=== PATIENT | male | born 1940 | race Two or more races ===

== ENCOUNTER 2019-10-18 20:34 | Inpatient (IN) | payer MEDICARE, MEDICAID ==
[~2019-10-18] VITALS: Ht 177.8 cm; Wt 106.3 kg
[2019-10-18] MEDS ORDERED: FUROSEMIDE 40 MG/4 ML VIAL IV ONE (21:15)
[2019-10-18 21:33] LABS: Basophils # (auto) 0.1 10 ^3/uL (0-0.2); Basophils % (auto) 0.8 % (0.0-2.0); Eosinophils # (auto) 0.5 10 ^3/uL (0-0.8); Eosinophils % (auto) 4.7 % (0.0-7.0); Hematocrit 34.5 % (41.0-53.0); Hemoglobin 11.4 g/dL (13.5-17.5); Lymphocytes # (auto) 1.8 10 ^3/uL (0.4-5.4); Lymphocytes % (auto) 18.4 % (10.0-50.0); Mean Corpuscular Hemoglobin 31.3 pg (28.0-32.0); Mean Corpuscular Hgb Conc. 33.1 g/dL (32.0-36.0); Mean Corpuscular Volume 94.6 fL (80.0-100.0); Monocytes % (auto) 10.3 % (0.0-12.0); Neutrophils # (auto) 6.3 10 ^3/uL (1.6-8.6); Neutrophils % (auto) 65.8 % (37.0-80.0); Platelet Count (auto) 169 10^3/uL (140-450); Red Blood Cells 3.64 10^6/uL (4.5-5.90); Red Cell Distribution Width 15.5 % (11.8-14.3); White Blood Cell 9.6 10^3/uL (4.4-10.8)
[2019-10-18 21:53] LABS: Albumin 3.3 g/dL (3.4-5.0); Anion Gap 5 (5-15); Blood Urea Nitrogen 52 mg/dL (7-18); Calcium 8.6 mg/dL (8.5-10.1); Carbon Dioxide 23 mmol/L (21-32); Chloride 106 mmol/L (98-107); Magnesium 2.4 mg/dL (1.6-2.6); Potassium 5.2 mmol/L (3.5-5.1); Sodium 134 mmol/L (136-145)
[2019-10-18 21:56] LABS: Alanine Aminotransferase 20 U/L (16-61); Aspartate Aminotransferase 11 U/L (15-37); BUN/Creatinine Ratio 23.2; GFR African American 37 mL/min; GFR Non-African American 30 mL/min; Glucose 72 mg/dL (74-106)
[2019-10-18 22:00] LABS: INR 0.99 (0.9-1.15); Partial Thromboplastin Time 28.6 sec (23.64-32.05)
[2019-10-18 22:01] LABS: Alkaline Phosphatase 81 U/L (45-117); Bilirubin, Total 0.3 mg/dL (0.2-1.0); Total Protein 7.6 g/dL (6.4-8.2)
[2019-10-18 23:21] LABS: Urine Bacteria FEW /hpf (None Seen); Urine Blood Negative /uL (Negative); Urine Hyaline Cast FEW /lpf (0 - 2); Urine Specific Gravity 1.009 (1.001-1.035); Urine WBC 7 /hpf (0 - 3)
[2019-10-18] MEDS ORDERED: SODIUM CHLORIDE 0.9% 1,000 ML IV SCH (23:43)
[2019-10-18] MEDS ORDERED: ACETAMINOPHEN 325 MG TAB PO PRN (23:45)
[2019-10-18] MEDS ORDERED: HYDROcodone-ACET 5/325MG TAB PO PRN (23:45)
[2019-10-18] MEDS ORDERED: MORPHINE SULFATE 4 MG/ML SYR/VIAL IV PRN (23:45)
[2019-10-18] MEDS ORDERED: ONDANSETRON HCL 4 MG/2 ML VIAL IV PRN (23:45)
[2019-10-18] MEDS ORDERED: MORPHINE SULF INJ 2 MG/ML SYRINGE 1ML IV PRN (23:45)
[2019-10-18] MEDS ORDERED: DOCUSATE SOD 100 MG CAP PO PRN (23:45)
[2019-10-18] MEDS ORDERED: DEXTROSE (50%) 50ML SYRG IV PRN (23:45)
[2019-10-18] MEDS ORDERED: NITROGLYCERIN 0.4 MG SL TAB SL PRN (23:45)
[2019-10-19 01:42] VITALS: BP 121/50
--- NOTE | 2019-10-19 01:45 | NUR ---
Telemetry admit from ER TATYANA AUGUSTINE admitted to Telemetry unit after SBAR received. Patient oriented to Pete santillan RN, unit, room, bed, and unit policies regarding patient care and visiting hours. Patient now on continuous telemetry monitoring, tele box #51 and telemetry reading on arrival to unit is Fauzia Moser. Patient placed on bedside oxygen, weighed by bedscale and encouraged to call if they need something. All questions and concerns addressed, patient verbalized understanding.
[2019-10-19 03:46] LABS: Basophils # (auto) 0.1 10 ^3/uL (0-0.2); Basophils % (auto) 0.9 % (0.0-2.0); Eosinophils # (auto) 0.4 10 ^3/uL (0-0.8); Eosinophils % (auto) 4.7 % (0.0-7.0); Hematocrit 33.1 % (41.0-53.0); Hemoglobin 11.2 g/dL (13.5-17.5); Lymphocytes # (auto) 1.9 10 ^3/uL (0.4-5.4); Lymphocytes % (auto) 21.1 % (10.0-50.0); Mean Corpuscular Hemoglobin 31.4 pg (28.0-32.0); Mean Corpuscular Hgb Conc. 33.9 g/dL (32.0-36.0); Mean Corpuscular Volume 92.6 fL (80.0-100.0); Monocytes # (auto) 0.9 10 ^3/uL (0-1.3); Monocytes % (auto) 9.4 % (0.0-12.0); Neutrophils # (auto) 5.9 10 ^3/uL (1.6-8.6); Neutrophils % (auto) 63.9 % (37.0-80.0); Platelet Count (auto) 165 10^3/uL (140-450); Red Blood Cells 3.57 10^6/uL (4.5-5.90); Red Cell Distribution Width 15.5 % (11.8-14.3); White Blood Cell 9.2 10^3/uL (4.4-10.8)
[2019-10-19] MEDS: InsuLIN REG 1unit/0.01ml Soln (100units/ml) SC SCH ×6 (04:00→20:20)
[2019-10-19] MEDS: ACCU-CHEK COMFORT CURVE STRIP VI SCH ×6 (04:00→20:20)
[2019-10-19 04:10] LABS: Calcium 8.1 mg/dL (8.5-10.1)
[2019-10-19 04:15] LABS: BUN/Creatinine Ratio 25.3
[2019-10-19] MEDS ORDERED: PYRI100T51 PO (04:45)
[2019-10-19] MEDS ORDERED: TAMS0.4C36 PO (04:45)
[2019-10-19] MEDS ORDERED: CARV12.544 PO (04:45)
[2019-10-19] MEDS ORDERED: GABA300C10 PO (04:45)
[2019-10-19] MEDS ORDERED: HYDR12.56 PO (04:45)
[2019-10-19] MEDS ORDERED: LISI30TA4 PO (04:46)
[2019-10-19] MEDS ORDERED: RANI150C11 PO (04:46)
[2019-10-19] MEDS ORDERED: AMLO5TAB15 PO (04:46)
[2019-10-19] MEDS ORDERED: PRAV20TA3 PO (04:46)
[2019-10-19 05:17] VITALS: BP 122/60
--- NOTE | 2019-10-19 07:15 | NUR ---
Opening Shift Notes Report received and assumed care of patient, awake and alert. speak [place] Islander understand little Greenlandic, No S/S of distress/SOB or pain. Instructed on POC and nursing routines,call light within reach patient reminded instructed to call for assistance verbalized understanding.will continue to monitor for changes Q1hr and PRN.
[2019-10-19 09:00] VITALS: BP 124/63
[2019-10-19] MEDS ORDERED: FUROSEMIDE 40 MG/4 ML VIAL IV SCH (10:00)
--- NOTE | 2019-10-19 10:15 | NUR ---
MD VISIT DR. PALACIOS HERE TO SEE AND EXAMINED PATIENT,RECEIVED ORDER.
[2019-10-19] MEDS ORDERED: AZITHROMYCIN 250 MG TAB PO ONE (11:15)
[2019-10-19] MEDS: TAMSULOSIN HYDROCHLORIDE 0.4 MG CAP PO SCH (11:19)
[2019-10-19] MEDS: cefTRIAXone 1GM/50ML D5W 50 ML IV SCH (11:19)
[2019-10-19] MEDS: FUROSEMIDE 100 MG/10ML VIAL IV SCH ×2 (11:20→21:27)
[2019-10-19 13:00] VITALS: BP 130/67
--- NOTE | 2019-10-19 13:35 | NUR ---
ISAIAS,PATIENT SON CALLED UPDATED WITH PATIENT STATUS AFTER PASSWORD OBTAINED
[2019-10-19] MEDS ORDERED: OPTISON 3ml Vial for INJ IV ONE (15:34)
--- NOTE | 2019-10-19 15:45 | NUR ---
ECHOCARDIOGRAM DONE AT BEDSIDE BY AUDRA RAT FARMERJFEFYSON 1.5 ML GIVEN PER PROTOCOL,NO REACTION NOTED.
[2019-10-19 16:25] VITALS: BP 139/70
--- NOTE | 2019-10-19 19:19 | NUR ---
Status unchanged no distress no discomfort,report given to incoming NOC RN.
--- NOTE | 2019-10-19 20:00 | NUR ---
Opening Shift Note Assumed care of patient, awake and alert, oriented x 4, clear speech, follows direction, glass setter at bedside. On oxygen at 3L via NC with even and unlabored respirations. No S/S of distress/SOB. patient denies pain. Bed in lowest locked position with side rails up x 2 and call light within reach. Instructed on POC and to call for assist PRN, will continue to monitor for changes Q1hr and PRN.
[2019-10-19 21:20] VITALS: BP 142/63
[2019-10-20] MEDS: ACCU-CHEK COMFORT CURVE STRIP VI SCH ×6 (00:22→20:38)
[2019-10-20] MEDS: InsuLIN REG 1unit/0.01ml Soln (100units/ml) SC SCH ×6 (03:48→20:38)
[2019-10-20 04:56] VITALS: BP 126/43
[2019-10-20 05:51] LABS: Basophils # (auto) 0.1 10 ^3/uL (0-0.2); Basophils % (auto) 0.7 % (0.0-2.0); Eosinophils # (auto) 0.4 10 ^3/uL (0-0.8); Eosinophils % (auto) 4.6 % (0.0-7.0); Hematocrit 34.2 % (41.0-53.0); Hemoglobin 11.5 g/dL (13.5-17.5); Lymphocytes # (auto) 2.1 10 ^3/uL (0.4-5.4); Lymphocytes % (auto) 24.7 % (10.0-50.0); Mean Corpuscular Hemoglobin 31.2 pg (28.0-32.0); Mean Corpuscular Hgb Conc. 33.8 g/dL (32.0-36.0); Mean Corpuscular Volume 92.2 fL (80.0-100.0); Monocytes # (auto) 1.1 10 ^3/uL (0-1.3); Monocytes % (auto) 13.5 % (0.0-12.0); Neutrophils # (auto) 4.7 10 ^3/uL (1.6-8.6); Neutrophils % (auto) 56.5 % (37.0-80.0); Platelet Count (auto) 173 10^3/uL (140-450); Red Blood Cells 3.71 10^6/uL (4.5-5.90); Red Cell Distribution Width 15.6 % (11.8-14.3); White Blood Cell 8.3 10^3/uL (4.4-10.8)
[2019-10-20 06:12] LABS: BUN/Creatinine Ratio 28.6; Calcium 8.8 mg/dL (8.5-10.1)
[2019-10-20 06:16] LABS: Potassium 5.6 mmol/L (3.5-5.1)
--- NOTE | 2019-10-20 06:19 | NUR ---
Paged Hospitalist RE: critical K 5.6 awaiting call back, will continue care.
--- NOTE | 2019-10-20 06:25 | NUR ---
Received call back from MD Marcellus updated on patient status, new order received, read back and verified, will carry out orders and continue care.
[2019-10-20] MEDS ORDERED: SODIUM ZIRCONIUM CYCL 10 GM PAK PO ONE (06:30)
--- NOTE | 2019-10-20 07:10 | NUR ---
Closing Note patient resting in bed with oxygen on, even and unlabored respirations, no s/s of distress. Bed in lowest locked position with side rails up x 2 and call light within reach. Bed alarm on. Endorsed care to day shift RN.
--- NOTE | 2019-10-20 07:50 | NUR ---
Opening Shift Note Assumed care of patient, who is alert and oriented x4. No S/S of distress/SOB or pain. IV to left AC is patent and intact. Bed is low, locked with 2x side rails up. Call light is within reach. Instructed on POC and to call for assist PRN, will continue to monitor for changes Q1hr and PRN.
[2019-10-20 08:00] VITALS: BP 138/60
[2019-10-20 09:00] VITALS: BP_SYST 138; BP_SYST 140; BP_DIAS 60; BP_DIAS 87
[2019-10-20] MEDS: AZITHROMYCIN 250 MG TAB PO SCH (10:12)
[2019-10-20] MEDS: cefTRIAXone 1GM/50ML D5W 50 ML IV SCH (10:12)
[2019-10-20] MEDS: TAMSULOSIN HYDROCHLORIDE 0.4 MG CAP PO SCH (10:12)
[2019-10-20] MEDS: FUROSEMIDE 100 MG/10ML VIAL IV SCH ×2 (10:13→20:38)
--- NOTE | 2019-10-20 11:12 | NUR ---
Cardio Follow Up Appointment This nurse contacted Dr. Elias's office as per MD's communication order. This nurse spoke with Joan and scheduled the patient a virtual follow up appointment for 10/26/2019 at 12:30pm. Will provide patient with follow up information.
[2019-10-20] MEDS ORDERED: SODIUM BICARBONATE 8.4% INJ 50ML SYRINGE IV ONE (11:15)
[2019-10-20] MEDS ORDERED: InsuLIN REG 1unit/0.01ml Soln (100units/ml) IV ONE (11:15)
[2019-10-20] MEDS ORDERED: DEXTROSE (50%) 50ML SYRG IV ONE (11:15)
[2019-10-20] MEDS ORDERED: ALBUTEROL SULF 2.5 MG/0.5ML(0.5%) NEB SOLN NEB ONE (11:15)
[2019-10-20 13:00] VITALS: BP 154/76
[2019-10-20] MEDS ORDERED: SODIUM ZIRCONIUM CYCL 10 GM PAK PO SCH (14:00)
--- NOTE | 2019-10-20 16:19 | NUR ---
O2 saturations Patient's O2 saturations on room are were 86%-88%. Placed patient back on 1L O2 and his O2 saturations are now 94%. Will relay message to MD Recinos.
--- NOTE | 2019-10-20 16:23 | NUR ---
Received call back Per MD Recinos this nurse is to increase O2 to two liters. Will carry out orders and continue to monitor.
[2019-10-20 16:24] VITALS: BP 150/80
--- NOTE | 2019-10-20 16:40 | NUR ---
Respiratory note: ABG NOT DONE. SPOKE WITH RN, RN UNSURE OF DC TOMORROW. RN IS CANCELLING ABG ORDERED FOR TODAY AND ORDERING ABG FOR AM TOMORROW INSTEAD.
--- NOTE | 2019-10-20 17:23 | NUR ---
Family update Mitch (son) called for update. Password verified and all questions answered.
--- NOTE | 2019-10-20 20:05 | NUR ---
Opening Shift Note Assumed care of patient, awake and alert, oriented x 4, clear speech, follows direction, president and chief commercial officer at bedside. On oxygen at 2L via NC with even and unlabored respirations. No S/S of distress/SOB. patient denies pain. Bed in lowest locked position with side rails up x 2 and call light within reach. Instructed on POC and to call for assist PRN, will continue to monitor for changes Q1hr and PRN.
--- NOTE | 2019-10-20 20:30 | NUR ---
IV insertion IV access obtained, via clean sterile technique by inserting 22 gauge catheter at right forearm after 1 attempt(s). IV secured properly. No trauma to site. Patient tolerated well. NOTE: PIV to left AC was leaking. IV DC'd with clean sterile technique, catheter fully intact. Pressure dressing applied to site. Patient tolerated well. NOTE:
[2019-10-20 22:00] VITALS: BP 153/81
[2019-10-21] MEDS: ACCU-CHEK COMFORT CURVE STRIP VI SCH ×5 (00:06→16:00)
[2019-10-21] MEDS: InsuLIN REG 1unit/0.01ml Soln (100units/ml) SC SCH ×5 (04:00→16:00)
[2019-10-21 05:00] VITALS: BP 138/61
[2019-10-21 06:16] LABS: Calcium 8.9 mg/dL (8.5-10.1); Potassium 4.4 mmol/L (3.5-5.1)
--- NOTE | 2019-10-21 06:50 | NUR ---
Closing Note patient resting in bed with oxygen on, even and unlabored respirations, no s/s of distress. Bed in lowest locked position with side rails up x 2 and call light within reach. Bed alarm on.
--- NOTE | 2019-10-21 07:33 | NUR ---
Opening Shift Note Assumed care of patient, awake and alert. No S/S of distress/SOB or pain. for safety patients bed is locked, in the lowest position with 2 side rails up and the call light with in reach. Instructed on POC and to call for assist PRN, will continue to monitor for changes in condition.
[2019-10-21 08:26] VITALS: BP 142/71
[2019-10-21] MEDS: FUROSEMIDE 100 MG/10ML VIAL IV SCH (09:34)
[2019-10-21] MEDS: TAMSULOSIN HYDROCHLORIDE 0.4 MG CAP PO SCH (09:34)
[2019-10-21] MEDS: cefTRIAXone 1GM/50ML D5W 50 ML IV SCH (09:34)
[2019-10-21] MEDS: AZITHROMYCIN 250 MG TAB PO SCH (09:34)
[2019-10-21 12:30] VITALS: BP_SYST 138; BP_SYST 150; BP_DIAS 59; BP_DIAS 67
[2019-10-21 17:12] VITALS: BP 129/54
--- NOTE | 2019-10-21 18:28 | NUR ---
Discharge instructions given as ordered. Encourage to follow up with Primary care physician as instructed and follow up with cardiology appointment made for Dr. Elias and nephrology appt for Dr. Recinos. All questions and concerns addressed. Patient verbalized understanding. Medication reconciliation form completed and copy given to patient. Home medications held in Pharmacy returned to patient. IV removed with catheter intact, pressure dressing applied. Telemetry unit 51 returned to ICU. Patient taken to vehicle via wheelchair with all personal belongings, accompanied by staff and daughter Idania. No distress noted at time of departure.
== END 2019-10-21 18:20 | disposition home or self-care (01) | DRG 291 ==
LOC: EDBD 20:34 → ER 20:38 → TELE 20:39 → TELE-WESTW 10-19 01:42
PROVIDERS: ADMIT Hospitalist; ATTEND Internal Medicine Nephrology
DX: I13.0 Hypertensive heart and chronic kidney disease with heart failure and stage 1 through stage 4 chronic kidney disease, or unspecified chronic kidney disease (principal); I50.33 Acute on chronic diastolic (congestive) heart failure; J15.6 Pneumonia due to other Gram-negative bacteria; N17.0 Acute kidney failure with tubular necrosis; J96.01 Acute respiratory failure with hypoxia; E78.00 Pure hypercholesterolemia, unspecified; I44.1 Atrioventricular block, second degree; E11.22 Type 2 diabetes mellitus with diabetic chronic kidney disease; N18.3 Chronic kidney disease, stage 3 (moderate); E66.9 Obesity, unspecified; E78.5 Hyperlipidemia, unspecified; E87.5 Hyperkalemia; Z86.73 Personal history of transient ischemic attack (TIA), and cerebral infarction without residual deficits; Z79.899 Other long term (current) drug therapy; Z83.3 Family history of diabetes mellitus; Z83.511 Family history of glaucoma; Z68.34 Body mass index [BMI] 34.0-34.9, adult
CPT/HCPCS: 36415; 36600; 71045; 71046; 80048; 80053; 80061; 81001; 82805; 82962; 83036; 83735; 83880; 84132; 84443; 84484; 85025; 85379; 85610; 85730; 93005; 93306; 93970; 94640; G0378; J0696; J1815; Q9956

== ENCOUNTER 2019-11-09 15:31 | Inpatient (IN) | payer MEDICARE, MEDICAID ==
[~2019-11-09] VITALS: Ht 175.3 cm; Wt 101.8 kg
[~2019-11-09 15:31] MED LIST: AMLO5TAB15 PO; CARV12.544 PO; GABA300C10 PO; HYDR12.56 PO; PRAV20TA3 PO; PYRI100T51 PO; RANI150C11 PO; TAMS0.4C36 PO
[2019-11-09] MEDS ORDERED: FUROSEMIDE 40 MG/4 ML VIAL IV ONE (15:45)
[2019-11-09 16:17] LABS: Basophils # (auto) 0.1 10 ^3/uL (0-0.2); Basophils % (auto) 0.5 % (0.0-2.0); Eosinophils # (auto) 0.3 10 ^3/uL (0-0.8); Eosinophils % (auto) 3.4 % (0.0-7.0); Hematocrit 32.3 % (41.0-53.0); Hemoglobin 10.6 g/dL (13.5-17.5); Lymphocytes # (auto) 1.3 10 ^3/uL (0.4-5.4); Lymphocytes % (auto) 13.9 % (10.0-50.0); Mean Corpuscular Hemoglobin 30.6 pg (28.0-32.0); Mean Corpuscular Hgb Conc. 32.9 g/dL (32.0-36.0); Mean Corpuscular Volume 93.2 fL (80.0-100.0); Monocytes % (auto) 10.9 % (0.0-12.0); Neutrophils # (auto) 6.7 10 ^3/uL (1.6-8.6); Neutrophils % (auto) 71.3 % (37.0-80.0); Nucleated Red Blood Cells % 0.1 %; Platelet Count (auto) 188 10^3/uL (140-450); Red Blood Cells 3.47 10^6/uL (4.5-5.90); Red Cell Distribution Width 14.6 % (11.8-14.3); White Blood Cell 9.3 10^3/uL (4.4-10.8)
[2019-11-09 16:30] LABS: Alanine Aminotransferase 30 U/L (16-61); Albumin 2.8 g/dL (3.4-5.0); Anion Gap 5 (5-15); Aspartate Aminotransferase 24 U/L (15-37); Blood Urea Nitrogen 54 mg/dL (7-18); Calcium 8.8 mg/dL (8.5-10.1); Carbon Dioxide 30 mmol/L (21-32); Chloride 104 mmol/L (98-107); GFR African American 42 mL/min; GFR Non-African American 34 mL/min; Glucose 145 mg/dL (74-106); Potassium 4.3 mmol/L (3.5-5.1); Sodium 139 mmol/L (136-145)
[2019-11-09] MEDS ORDERED: FUROSEMIDE 20 MG/2 ML VIAL IV ONE (16:30)
[2019-11-09 16:34] LABS: Alkaline Phosphatase 88 U/L (45-117); Bilirubin, Total 0.3 mg/dL (0.2-1.0); Total Protein 7.7 g/dL (6.4-8.2)
[2019-11-09 16:35] LABS: INR 1.06 (0.9-1.15); Partial Thromboplastin Time 28.3 sec (23.64-32.05)
[2019-11-09] MEDS ORDERED: cefTRIAXone 1GM/50ML D5W 50 ML IV ONE (16:45)
[2019-11-09] MEDS ORDERED: AZITHROMYCIN 500MG/ 250ML 250 ML IV ONE (16:45)
[2019-11-09] MEDS ORDERED: MORPHINE SULF INJ 2 MG/ML SYRINGE 1ML IV PRN ×2 (18:15)
[2019-11-09] MEDS ORDERED: DEXTROSE (50%) 50ML SYRG IV PRN (18:15)
[2019-11-09] MEDS ORDERED: HYDROcodone-ACET 5/325MG TAB PO PRN (18:15)
[2019-11-09] MEDS ORDERED: ACETAMINOPHEN 500 MG TAB PO ONE (18:15)
[2019-11-09] MEDS ORDERED: NITROGLYCERIN 0.4 MG SL TAB SL PRN (18:15)
[2019-11-09] MEDS: ACETAMINOPHEN 500 MG TAB PO PRN (18:26)
[2019-11-09 18:35] LABS: Magnesium 2.4 mg/dL (1.6-2.6)
[2019-11-09 18:45] LABS: CRP High Sensitivity 5.13 mg/dL (< 0.3)
[2019-11-09] MEDS: ASCORBIC ACID 1,000 MG TAB PO SCH (18:54)
[2019-11-09] MEDS: ZINC SULFATE 220mg CAP or TAB PO SCH (18:54)
[2019-11-09] MEDS: ENOXAPARIN SOD 40 MG/0.4 ML SYRINGE SC SCH (18:54)
[2019-11-09 20:30] VITALS: BP 137/67
--- NOTE | 2019-11-09 20:30 | NUR ---
Telemetry admit from TATYANA AUGUSTINE admitted to Telemetry unit. Patient oriented to ABHINAV VERA RN primary RN, MST unit, room 247, bed A, and unit policies regarding patient care and visiting hours. Patient now on continuous telemetry monitoring, tele box #13 and telemetry reading on arrival to unit is sinus rhythm in the 60s . Patient placed on bedside oxygen, weighed by bedscale and encouraged to call if they need something. All questions and concerns addressed, patient verbalized understanding. Note: Patient, awake, alert and oriented x4, patient able to turn independently, bed in lowest locked position, side rails up x2, and call light within reach. Instructed on POC and to call for assist PRN, will continue to monitor for changes Q1hr and PRN.
[2019-11-09 21:45] VITALS: BP 154/67
[2019-11-09] MEDS: CARVEDILOL 12.5 MG TAB PO SCH (22:00)
[2019-11-09] MEDS ORDERED: ALBUTEROL SULF HFA 90MCG INH 200DOSE IN SCH (22:00)
[2019-11-09] MEDS ORDERED: DOXYCYCLINE 100MG/250ML 250 ML IV SCH (22:00)
[2019-11-09] MEDS: ALBUTEROL SULF HFA 90MCG INH 200DOSE IN SCH ×2 (22:25→22:46)
[2019-11-09] MEDS: GABAPENTIN 300 MG CAP PO SCH (22:39)
[2019-11-09] MEDS: ACCU-CHEK COMFORT CURVE STRIP VI SCH (22:39)
[2019-11-09] MEDS: InsuLIN REG 1unit/0.01ml Soln (100units/ml) SC SCH (22:45)
[2019-11-10] VITALS (61 sets, daily range): BP systolic 86–141; BP diastolic 32–68
[2019-11-10] MEDS ORDERED: FUROSEMIDE 20 MG/2 ML VIAL ONE (04:29)
[2019-11-10] MEDS ORDERED: methylPREDNISolone SOD SUCC 40 MG/ML VL ONE (04:30)
[2019-11-10] MEDS ORDERED: FUROSEMIDE 20 MG/2 ML VIAL IV ONE (04:30)
[2019-11-10] MEDS ORDERED: methylPREDNISolone SOD SUCC 125 MG/2 ML VL IV ONE (04:30)
[2019-11-10] MEDS ORDERED: FUROSEMIDE 100 MG/10ML VIAL IV SCH (06:00)
[2019-11-10 06:44] LABS: Basophils # (auto) 0.1 10 ^3/uL (0-0.2); Basophils % (auto) 0.6 % (0.0-2.0); Eosinophils # (auto) 0.2 10 ^3/uL (0-0.8); Eosinophils % (auto) 1.7 % (0.0-7.0); Hematocrit 33.3 % (41.0-53.0); Hemoglobin 10.9 g/dL (13.5-17.5); Lymphocytes # (auto) 1.8 10 ^3/uL (0.4-5.4); Lymphocytes % (auto) 15.8 % (10.0-50.0); Mean Corpuscular Hgb Conc. 32.9 g/dL (32.0-36.0); Mean Corpuscular Volume 94.4 fL (80.0-100.0); Monocytes # (auto) 1.5 10 ^3/uL (0-1.3); Monocytes % (auto) 12.9 % (0.0-12.0); Neutrophils # (auto) 7.9 10 ^3/uL (1.6-8.6); Nucleated Red Blood Cells % 0.1 %; Platelet Count (auto) 204 10^3/uL (140-450); Red Blood Cells 3.52 10^6/uL (4.5-5.90); Red Cell Distribution Width 14.5 % (11.8-14.3); White Blood Cell 11.4 10^3/uL (4.4-10.8)
[2019-11-10] MEDS: ACCU-CHEK COMFORT CURVE STRIP VI SCH ×4 (06:56→22:31)
[2019-11-10] MEDS: ALBUTEROL SULF HFA 90MCG INH 200DOSE IN SCH (06:56)
[2019-11-10] MEDS: GABAPENTIN 300 MG CAP PO SCH (06:56)
[2019-11-10] MEDS: InsuLIN REG 1unit/0.01ml Soln (100units/ml) SC SCH ×4 (06:57→22:32)
[2019-11-10 07:01] LABS: Albumin 3.1 g/dL (3.4-5.0); Calcium 9.2 mg/dL (8.5-10.1); Potassium 4.7 mmol/L (3.5-5.1)
[2019-11-10 07:06] LABS: BUN/Creatinine Ratio 28.8; Bilirubin, Total 0.4 mg/dL (0.2-1.0); Total Protein 8.3 g/dL (6.4-8.2)
--- NOTE | 2019-11-10 07:57 | NUR ---
Admit to [facility] Miriam AUGUSTINEdmitted to [facility] via gurney on monitoring coordinator, and portable 02. Patient transfered to bed, connected to unit monitoring and oxygen, and weighed by bedscale. Patient oriented to Issac santillan RN, unit, room, bed, and unit policies regarding patient care and visiting hours. All questions and concerns addressed, patient verbalized understanding.
[2019-11-10] MEDS ORDERED: SUCCINYLCHOLINE CHLORIDE 20 MG/ML 10ML VIAL IV ONE (08:17)
[2019-11-10] MEDS ORDERED: ETOMIDATE (2MG/ML) 20ML VIAL IV ONE (08:17)
[2019-11-10] MEDS ORDERED: ROCURONIUM 10MG/ML 10ML VIAL IV ONE (08:17)
--- NOTE | 2019-11-10 08:18 | NUR ---
SHWETA NELSON AT BEDSIDE
--- NOTE | 2019-11-10 08:20 | NUR ---
ABG OBTAINED. OBSTETRICAL TECH RICH NELSON AWARE OF ABG RESULTS AND AT BEDSIDE. PT PLACED ON HIGH FLOW NASAL CANNULA PER OMAR'S ORDERS. PT IS ON 60LPM, 50% FIO2. SPO2 91%, HR 59. PT USING ACCESSORY MUSCLES, PT IN RESPIRATORY DISTRESS. WOB NOT RELIEVED AFTER PLACING ON HIGH FLOW NASAL CANNULA.
[2019-11-10] MEDS ORDERED: BUMETANIDE 2.5mg/10ml (0.25 mg/ml) INJ IV ONE (08:30)
[2019-11-10] MEDS ORDERED: cefTRIAXone 1GM/50ML D5W 50 ML IV SCH (09:00)
[2019-11-10] MEDS: ZINC SULFATE 220mg CAP or TAB PO SCH (09:12)
[2019-11-10] MEDS: ASCORBIC ACID 1,000 MG TAB PO SCH (09:12)
[2019-11-10] MEDS: CARVEDILOL 12.5 MG TAB PO SCH ×2 (09:12→22:14)
--- NOTE | 2019-11-10 09:52 | NUR ---
PATIENT INTUBATED BY DR. BRITO AFTER 1 ATTEMPT 8.0 25 AT THE LIP. CXR ORDERED
[2019-11-10] MEDS ORDERED: MIDAZOLAM DRIP 50 mg/50mL 50 ML IV ONE (09:53)
[2019-11-10] MEDS ORDERED: amLODIPine BESYLATE 5 MG TAB PO SCH (10:00)
[2019-11-10] MEDS ORDERED: methylPREDNISolone SOD SUCC 40 MG/ML VL IV SCH (10:00)
[2019-11-10] MEDS ORDERED: FAMOTIDINE 20 MG TAB PO SCH (10:00)
[2019-11-10] MEDS ORDERED: ALBUTEROL SULF 2.5 MG/0.5ML(0.5%) NEB SOLN NEB PRN (10:15)
[2019-11-10] MEDS ORDERED: IPRATROPIUM BROM 0.5 MG/2.5ML INH SOL NEB PRN (10:15)
[2019-11-10] MEDS: NOREPINEPHRINE 8 MG/250ML KIT 250 ML IV SCH (10:23)
[2019-11-10] MEDS ORDERED: MEROPENEM 500MG IVPB 50 ML IV ONE (10:30)
[2019-11-10] MEDS: fentaNYL Drip 2500mCg/250mlNS 250 ML IV SCH (11:00)
--- NOTE | 2019-11-10 11:01 | NUR ---
FAMILY UPDATED ON PATIENT STATUS. ALL QUESTIONS AND CONCERNS ADDRESSED AT THIS TIME
[2019-11-10 13:24] LABS: Urine Bacteria NONE SEEN /hpf (None Seen); Urine Blood 2+ /uL (Negative); Urine Hyaline Cast MOD /lpf (0 - 2); Urine Mucus FEW (None Seen); Urine WBC 2 /hpf (0 - 3)
[2019-11-10 13:27] LABS: Amphetamine Screen, Urine NEGATIVE (NEGATIVE); Sodium Urine 71 mmol/L (40-220)
[2019-11-10 13:36] LABS: Alcohol, Urine < 3.0 mg/dL (0-5); Barbiturate Scree,Urine NEGATIVE (NEGATIVE); Benzodiazephine Screen, Urine POSITIVE (NEGATIVE); Cannabinoid Screen, Urine NEGATIVE (NEGATIVE); Cocaine Screen, Urine NEGATIVE (NEGATIVE); Creatinine, Urine 46 mg/dL (30.0-125.0); Opiate Scree,Urine NEGATIVE (NEGATIVE); Phencyclidine Screen, Urine NEGATIVE (NEGATIVE)
--- NOTE | 2019-11-10 14:27 | NUR ---
PICC NURSE AT BEDSIDE
[2019-11-10] MEDS ORDERED: LIDOCAINE 1% (LOCAL ANESTH.) PF 5ml SDV ID ONE (15:15)
--- NOTE | 2019-11-10 15:21 | NUR ---
PICC line placement Patient significant other educated on need for PICC line placement. All risks and benefits explained and all questions and concerns addressed prior to procedure. Noted past medical history and allergies with no contraindications. INR and Plt counts within acceptable range. 5 fr PICC line inserted via R BASILIC vein using [employer] US and Tip Location System. Sterile technique with maximum barrier precautions utilized. Blood return obtained from each of the 3 lumens and each flushed easily with NS using proper technique. PICC secured with Stat-lock; biodisc and occlusive dressing applied. Stat portable chest x-ray obtained for PICC tip placement. *Baseline Arm Circumference 29CM. EXTERNAL LENGTH 0CM. INTERNAL LENGTH 51 CM. PICC lot # [id number]. Note:
[2019-11-10] MEDS: MIDAZOLAM DRIP 50 mg/50mL 50 ML IV SCH (15:26)
--- NOTE | 2019-11-10 15:37 | NUR ---
PARTIAL LINEN CHANGE PERFORMED AT THIS TIME
--- NOTE | 2019-11-10 16:11 | NUR ---
Okay to use PICC line Xray completed and reviewed. Okay to use PICC line. Mike MORENO notified.
[2019-11-10] MEDS: TAMSULOSIN HYDROCHLORIDE 0.4 MG CAP PO SCH (18:24)
[2019-11-10] MEDS: ENOXAPARIN SOD 40 MG/0.4 ML SYRINGE SC SCH (18:25)
--- NOTE | 2019-11-10 19:12 | NUR ---
PATIENT TAKEN TO ICU VIA ACLS GUIDELINES
--- NOTE | 2019-11-10 19:25 | NUR ---
Opening shift note: Primary RN Venancio received report on patient after being transferred from ICU [facility]. Patient intubated ETT 8.0/25@LL, VENT settings: AC 18, TV 600, FIO2 50, PEEP 8, O2 Sat 99%, bilateral lungs diminished. PICC line right upper arm 3 lumen, infusing Versed @ 12, Fentanyl @ 75. Dasilva catheter draining via gravity with yellow urine. Safety precautions in place. Will continue to monitor. Addendum: 11/10/19 at 2020 by VENANCIO GARCIA RN RN Vitals:113/49, 62, 20, 98.2, 0/10 pain and 109.6 kg
[2019-11-10] MEDS ORDERED: LINEZOLID 600MG/300ML 300 ML IV SCH (22:00)
[2019-11-10] MEDS: SODIUM CHLOR 0.9% PF (SALINE LOCK) 10ML VIAL/SYR IV SCH (22:12)
[2019-11-10] MEDS: MEROPENEM 1GM IVPB 100 ML IV SCH (22:12)
[2019-11-10] MEDS: PRAVASTATIN SODIUM 20 MG TAB PO SCH (22:14)
[2019-11-11] VITALS (90 sets, daily range): BP systolic 115–140; BP diastolic 45–64
--- NOTE | 2019-11-11 03:00 | NUR ---
Patient was given a bath. Patient tolerated intervention well with no s/s of discomfort or distress.
[2019-11-11 03:43] LABS: Basophils # (auto) 0 10 ^3/uL (0-0.2); Basophils % (auto) 0.2 % (0.0-2.0); Eosinophils # (auto) 0 10 ^3/uL (0-0.8); Hematocrit 27.9 % (41.0-53.0); Lymphocytes # (auto) 0.8 10 ^3/uL (0.4-5.4); Lymphocytes % (auto) 12.9 % (10.0-50.0); Mean Corpuscular Hemoglobin 29.7 pg (28.0-32.0); Mean Corpuscular Hgb Conc. 32.3 g/dL (32.0-36.0); Mean Corpuscular Volume 91.9 fL (80.0-100.0); Monocytes # (auto) 0.5 10 ^3/uL (0-1.3); Monocytes % (auto) 7.9 % (0.0-12.0); Neutrophils # (auto) 4.9 10 ^3/uL (1.6-8.6); Platelet Count (auto) 166 10^3/uL (140-450); Red Blood Cells 3.03 10^6/uL (4.5-5.90); Red Cell Distribution Width 14.2 % (11.8-14.3); White Blood Cell 6.2 10^3/uL (4.4-10.8)
[2019-11-11 04:01] LABS: Calcium 8.1 mg/dL (8.5-10.1); Potassium 3.4 mmol/L (3.5-5.1)
--- NOTE | 2019-11-11 04:45 | NUR ---
Patient was noted with 750mL of urine output.
--- NOTE | 2019-11-11 05:27 | NUR ---
Hospitalist paged: Hospitalist was paged regarding patient's low potassium of 3.4. Awaiting call back.
[2019-11-11] MEDS: MIDAZOLAM DRIP 50 mg/50mL 50 ML IV SCH (05:56)
[2019-11-11] MEDS: ACCU-CHEK COMFORT CURVE STRIP VI SCH ×4 (06:20→22:00)
[2019-11-11] MEDS: InsuLIN REG 1unit/0.01ml Soln (100units/ml) SC SCH ×4 (06:21→22:00)
--- NOTE | 2019-11-11 06:25 | NUR ---
Hospitalist returned page: Hospitalist updated on patient condition and situation. New orders obtained and verified.
[2019-11-11] MEDS ORDERED: POTASSIUM CHL 20MEQ/100ML 100 ML IV ONE ×2 (06:30→06:34)
--- NOTE | 2019-11-11 09:30 | NUR ---
PATIENT SON CALLED FOR UPDATE PROVIDED PASSWORD. UPDATED ON CURRENT STATUS AND PLAN OF CARE
[2019-11-11] MEDS: SODIUM CHLOR 0.9% PF (SALINE LOCK) 10ML VIAL/SYR IV SCH ×2 (10:00→22:00)
[2019-11-11] MEDS: CARVEDILOL 12.5 MG TAB PO SCH (10:00)
[2019-11-11] MEDS: fentaNYL Drip 2500mCg/250mlNS 250 ML IV SCH (10:12)
[2019-11-11] MEDS: NOREPINEPHRINE 8 MG/250ML KIT 250 ML IV SCH (10:23)
[2019-11-11] MEDS: MEROPENEM 1GM IVPB 100 ML IV SCH ×2 (10:37→22:59)
[2019-11-11] MEDS: PANTOPRAZOLE 40 MG/10 ML VIAL INJ IV SCH (10:37)
[2019-11-11] MEDS ORDERED: FUROSEMIDE 100 MG/10ML VIAL IV ONE (11:00)
--- NOTE | 2019-11-11 12:00 | NUR ---
DR PATEL AT BEDSIDE DISCUSSED PATIENT STATUS AND PLAN OF CARE, NEW ORDERS RECEIVED
--- NOTE | 2019-11-11 12:40 | NUR ---
FABI MID LEVEL DEVELOPER AT BEDSIDE DISCUSSED PATIENT STATUS AND PLAN OF CARE
[2019-11-11] MEDS: LINEZOLID 600MG/300ML 300 ML IV SCH (14:00)
[2019-11-11] MEDS: ENOXAPARIN SOD 40 MG/0.4 ML SYRINGE SC SCH (18:18)
[2019-11-11] MEDS: TAMSULOSIN HYDROCHLORIDE 0.4 MG CAP PO SCH (18:18)
--- NOTE | 2019-11-11 20:00 | NUR ---
ADMITTED FROM [facility] ON 11/10/19, INTUBATED. MD DIAGNOSIS COMMUNITY ACQUIRED PNA AND DALILA. PUPILS 2 AND SLUGGISH. ORAL CARE DONE. GRIMACED WITH ORAL CARE. + COUGH AND GAG. LUNGS CLEAR. NOTHING SUCTIONED FROM THE ETT. ABDOMEN LARGE, ROUND AND SOFT. 1CC RESIDUAL FROM THE OGT. HAS 2 PERIPHERAL IVS. BOTH FLUSHED AND PATENT. NO REDNESS OR SWELLING AT SITES. HAS A RIGHT UPPER ARM PICC LINE. ONLY ON FENTANYL FOR SEDATION. ON A FLUID RESTRICTION. NO FEVER. SINUS BRADYCARDIA. RODRIGUEZ IN PLACE DRAINING AN ADEQUATE AMOUNT OF CLEAR YELLOW LIQUID TO DOWN DRAIN BAG. LASIX PATIENT. POTASSIUM OF 3.4 REPLACED TODAY. PLAN FOR CPAP TOMORROW.ALL PULSES PALPABLE. 1-2+ PITTING EDEMA IN BOTH LEGS. SCDS ON.
[2019-11-11] MEDS: CARVEDILOL 3.125 MG TAB PO SCH (22:00)
--- NOTE | 2019-11-11 22:00 | NUR ---
HOLDING COREG, HR 55. REPOSITIONED. ORAL CARE. IV SHOWS NO REDNESS, SWELLING OR REDNESS. URINE OUTPUT GOOD. GRIMACES ONLY. NO MOVEMENT OF EXTR.
[2019-11-11] MEDS: PRAVASTATIN SODIUM 20 MG TAB PO SCH (23:01)
[2019-11-12] VITALS (77 sets, daily range): BP systolic 93–170; BP diastolic 54–105
--- NOTE | 2019-11-12 | NUR ---
REPOSITIONING CAUSED HIM TO WAKE UP AND KEEP LIFTING HIS ARMS TOWARDS HIS ETT. BILATERAL MITTENS APPLIED. INCREASED THE FENTANYL. NSR 60 WITH FREQUENT PACS. LUNGS CLEAR. CLEAR ORAL SECRETIONS. ABDOMEN ROUND, LARGE, AND SOFT. GOOD URINE OUTPUT. SBP STABLE.IV ACCESS LINE CLEAN, DRY, NO DRNG.
[2019-11-12] MEDS: LINEZOLID 600MG/300ML 300 ML IV SCH ×2 (00:12→11:41)
--- NOTE | 2019-11-12 02:00 | NUR ---
WOKE UP BRIEFLY WHEN TURNED. FENTANYL REMAINS AT 100 MCG. SINUS BRADYCARDIA 55-60. OCCASIONAL PACS. NO CHANGE IN IV SITE. ORAL CARE. RESISTS CARE.
--- NOTE | 2019-11-12 03:30 | NUR ---
AM LABS DRAWN
--- NOTE | 2019-11-12 04:15 | NUR ---
[facility] BATH
--- NOTE | 2019-11-12 05:18 | NUR ---
BRIEF DROP IN O2 SATURATION TO 88%. LAVAGED AND SUCTIONED X 3 FOR A LARGE AMOUNT OF WHITE CLOUDY SECRETIONS. O2 SAT CAME UP TO 94%.
[2019-11-12] MEDS: ACCU-CHEK COMFORT CURVE STRIP VI SCH ×4 (05:58→22:20)
[2019-11-12] MEDS: InsuLIN REG 1unit/0.01ml Soln (100units/ml) SC SCH ×4 (05:59→22:00)
--- NOTE | 2019-11-12 08:45 | NUR ---
Respiratory note: CPAP TRIAL INITIATED DUE TO PT ATTEMPTING TO SELF EXTUBATE. PT TOLERATING CHANGE WELL. SPO2 97% ON 30% FIO2, HR 71, RR 22, BS CLEAR/DIMINISHED BILATERALLY. RN MADE AWARE. WILL CONTINUE TO MONITOR PT.
--- NOTE | 2019-11-12 09:00 | NUR ---
FABI HOME CARE MANAGER HERE TO SEE PATIENT. SEE NOTES AND EMR FOR ANY NEW ORDERS.
--- NOTE | 2019-11-12 09:01 | NUR ---
assessment Patient is a 79 year old male who is on a vent in ICU. Prior to admission patient lived home with family. I have left a message for patients deepak Meyer to return my call. Patients post discharge needs to be determined after extubation and prior to discharge. Patient is Covid 19 negative. Addendum: 11/12/19 at 1203 by Catrina ABBOTT Amended: Links added.
[2019-11-12 09:45] LABS: Potassium 3.9 mmol/L (3.5-5.1)
[2019-11-12] MEDS: SODIUM CHLOR 0.9% PF (SALINE LOCK) 10ML VIAL/SYR IV SCH ×2 (09:52→22:19)
[2019-11-12] MEDS: MEROPENEM 1GM IVPB 100 ML IV SCH ×2 (09:52→22:19)
[2019-11-12] MEDS: PANTOPRAZOLE 40 MG/10 ML VIAL INJ IV SCH (09:52)
[2019-11-12] MEDS ORDERED: FUROSEMIDE 100 MG/10ML VIAL IV SCH (10:00)
[2019-11-12] MEDS: CARVEDILOL 3.125 MG TAB PO SCH ×2 (10:00→22:20)
[2019-11-12] MEDS: MIDAZOLAM DRIP 50 mg/50mL 50 ML IV SCH (10:01)
[2019-11-12] MEDS: fentaNYL Drip 2500mCg/250mlNS 250 ML IV SCH (10:12)
--- NOTE | 2019-11-12 10:20 | NUR ---
DR. NGUYEN HERE TO SEE PATIENT. SEE MD NOTES AND EMR FOR ANY NEW ORDERS.
[2019-11-12 10:23] LABS: Basophils # (auto) 0 10 ^3/uL (0-0.2); Basophils % (auto) 0.4 % (0.0-2.0); Eosinophils # (auto) 0.1 10 ^3/uL (0-0.8); Eosinophils % (auto) 0.9 % (0.0-7.0); Hematocrit 30.7 % (41.0-53.0); Hemoglobin 9.8 g/dL (13.5-17.5); Lymphocytes # (auto) 1.9 10 ^3/uL (0.4-5.4); Lymphocytes % (auto) 16.8 % (10.0-50.0); Mean Corpuscular Hemoglobin 29.6 pg (28.0-32.0); Mean Corpuscular Hgb Conc. 32.1 g/dL (32.0-36.0); Mean Corpuscular Volume 92.1 fL (80.0-100.0); Monocytes # (auto) 1.5 10 ^3/uL (0-1.3); Monocytes % (auto) 13.1 % (0.0-12.0); Neutrophils # (auto) 7.8 10 ^3/uL (1.6-8.6); Neutrophils % (auto) 68.8 % (37.0-80.0); Nucleated Red Blood Cells % 0.1 %; Platelet Count (auto) 194 10^3/uL (140-450); Red Blood Cells 3.33 10^6/uL (4.5-5.90); Red Cell Distribution Width 14.5 % (11.8-14.3); White Blood Cell 11.3 10^3/uL (4.4-10.8)
[2019-11-12] MEDS: NOREPINEPHRINE 8 MG/250ML KIT 250 ML IV SCH (10:23)
--- NOTE | 2019-11-12 10:24 | NUR ---
PATIENT EXTUBATED, TOLERATED WELL. PUT ON COOL MIST SATING 100% AT THIS TIME.
[2019-11-12] MEDS ORDERED: FUROSEMIDE 20 MG/2 ML VIAL IV ONE (10:30)
--- NOTE | 2019-11-12 10:30 | NUR ---
DR NGUYEN GAVE ORDER TO EXTUBATE PT PER CPAP TRIAL/ABG RESULTS. NIF -44, RSBI 36, VC 919, LEAK 193 AND AUDIBLE. SPO2 97 % ON 30% FIO2, HR 71, RR 22, BS CLEAR/DIMINISHED. RN AWARE.
--- NOTE | 2019-11-12 10:42 | NUR ---
Respiratory note: PT EXTUBATED, AND PLACED ON 30% FIO2 VIA COOL AEROSOL MASK PER DR NGUYEN ORDER. PT TOLERATED EXTUBATION WELL. SPO2 98%, HR 72, RR 26, BP 160/77. RN AT BEDSIDE. WILL CONTINUE TO MONITOR PT.
[2019-11-12 11:02] LABS: Albumin 2.6 g/dL (3.4-5.0); Calcium 8.3 mg/dL (8.5-10.1)
[2019-11-12 11:05] LABS: BUN/Creatinine Ratio 38.9; Bilirubin, Total 0.5 mg/dL (0.2-1.0); Total Protein 7.3 g/dL (6.4-8.2)
--- NOTE | 2019-11-12 12:00 | NUR ---
DR. PATEL HERE TO SEE PATIENT. SEE MD NOTES AND EMR FOR ANY NEW ORDERS.
--- NOTE | 2019-11-12 12:23 | NUR ---
re-assessment Mitch called me back and informed me patients caregiver is his daughter Sheldon. Patient has a wheelchair, 02, rollator, and fww for home use. Patients PCP is Dr Turner. Family called 911 due to fast heart rate and shortness of breath. I informed Mitch I will continue to monitor patient for any post discharge needs. Mitch verbalized understanding. Addendum: 11/12/19 at 1225 by Catrina ABBOTT Amended: Links added.
--- NOTE | 2019-11-12 13:48 | NUR ---
SWALLOW EVALUATED. PATIENT HAS NATURAL TEETH. ABLE TO TOLERATE PUREE DIET TEXTURE WITH THIN LIQUIDS WITH NO OVERT SIGNS OR SYMPTOMS OF ASPIRATION. NURSING NOTIFIED.
[2019-11-12] MEDS: ENOXAPARIN SOD 40 MG/0.4 ML SYRINGE SC SCH (17:32)
[2019-11-12] MEDS: TAMSULOSIN HYDROCHLORIDE 0.4 MG CAP PO SCH (17:32)
--- NOTE | 2019-11-12 18:30 | NUR ---
PT ASSESSED, NO SOB OR STRIDOR NOTED.
--- NOTE | 2019-11-12 19:52 | NUR ---
PATIENT CONFUSED TO LOCATION. REORIENTED. BLOOD STREAKS IN URINE. NS TKO HOOKED TO PICC LINE. VENOUS DOPPLER PENDING TO RULE OUT DVT IN LEGS.
--- NOTE | 2019-11-12 19:54 | NUR ---
PLAN FOR LEFT HEART CATH ON 11/15/2019. NO CONSENT SIGNED.
--- NOTE | 2019-11-12 20:00 | NUR ---
SPEAKS MOSTLY CENTRAL AFRICAN, SOME FRENCH. COST SPECIALIST USED FOR ASSESSMENT. DENIES PAIN OR NAUSEA. STATED THAT HE FELT LIKE HE WAS BREATHING OK. RR 26. O2 SAT 99% ON 3LNP. HE PULLED HIS OXYGEN OFF AND HIS O2 SAT DROPPED TO 77%. LUNGS CLEAR. NONPRODUCTIVE COUGH. NSR WITHOUT ECTOPY. ABDOMEN ROUND, LARGE, SOFT. NO BM. RODRIGUEZ INTACT. I THINK HE PULLED ON IT, BLOOD STREAKS IN TUBING. FOUND HIS RODRIGUEZ STRETCHED. HAS 2 PERIPHERAL IVS THAT ARE NOT IN USE. BOTH FLUSHED WITH 10CC OF NORMAL SALINE. BOTH ARE PATENT AND SHOW NO REDNESS OR SWELLING. HAS A RIGHT UPPER ARM PICC LINE WITH PATENT, CLEAN DRESSING AND BIOPATCH. MOVES ARMS. SHUFFLES HIS BODY INTO A COMFORTABLE POSITION. O2 SAT ON RIGHT EAR. HIGHER READING ON EAR. NO SKIN ISSUES. SPOKE ON THE PHONE WITH HIS DAUGHTER AND GRANDSON ISAIAS.
--- NOTE | 2019-11-12 22:00 | NUR ---
MUSIC WRITER HERE TO DO BOTH LEGS. CHECKING FOR DVT. HAS 1+ SWELLING IN LEGS. CXR RESULTS NOTED. IV SYSTEM CHANGED.ACCUCHECK NORMAL. SWALLOWED PILLS EASILY. NSR WITH OCCASIONAL PVCS
[2019-11-12] MEDS: PRAVASTATIN SODIUM 20 MG TAB PO SCH (22:20)
[2019-11-13] VITALS (27 sets, daily range): BP systolic 131–185; BP diastolic 54–86
--- NOTE | 2019-11-13 | NUR ---
RESTLESS. COUGHS NONPRODUCTIVELY OFTEN. REMAINS ON 3LNP. CONFUSED TO PLACE, TIME. AWARE OF HIS FAMILIES NAMES. HE WILL PULL HIS BLOOD PRESSURE CUFF OFF. WIGGLES OFF HIS PILLOWS BECAUSE HE LIKES TO LAY ON HIS BACK. FIND HIS PULSE OX OFF. URINE IS STILL PINK BUT BETTER THAN BEFORE. RODRIGUEZ IN GOOD POSITION. NO FEVER. NSR WITH OCCASIONAL PACS. PICC LINE HAS ANTIBIOTICS INFUSING. DISCARDED OUTDATED LINES. NO SKIN ISSUES. CHANGED THE TURN SHEET AND PAD UNDER HIM. VERY LITTLE EDEMA IN BOTH LEGS. TAKING PO FLUIDS WELL.
[2019-11-13] MEDS: LINEZOLID 600MG/300ML 300 ML IV SCH ×2 (00:40→12:38)
--- NOTE | 2019-11-13 02:00 | NUR ---
DISORIENTED TO YEAR. ORIENTED TO MONTH, PRESIDENT AND SELF. KEEPS TAKING OXYGEN OFF. RR REMAINS IN THE 20S. TURNS BLUE IF HIS OXYGEN IS OFF. REFUSED TO TURN TO HIS SIDE.
--- NOTE | 2019-11-13 03:40 | NUR ---
AM LABS DONE
--- NOTE | 2019-11-13 04:00 | NUR ---
SHAVED. CHG BATH. CONTINUALLY IS TAKING OFF OXYGEN AND BRINGING IT DOWN SO THAT HE HAS IT BY HIS MOUTH. RR STILL IN THE 20S. O2 SATURATION 98%. LUNGS CLEAR. OFF WHITE/CREAMY ETT SECRETIONS. PERIPHERAL IVS REMOVED.
[2019-11-13 04:18] LABS: Basophils # (auto) 0 10 ^3/uL (0-0.2); Basophils % (auto) 0.4 % (0.0-2.0); Eosinophils # (auto) 0.2 10 ^3/uL (0-0.8); Eosinophils % (auto) 2.4 % (0.0-7.0); Hematocrit 30.7 % (41.0-53.0); Hemoglobin 10.2 g/dL (13.5-17.5); Lymphocytes # (auto) 1.1 10 ^3/uL (0.4-5.4); Lymphocytes % (auto) 11.6 % (10.0-50.0); Mean Corpuscular Hemoglobin 30.7 pg (28.0-32.0); Mean Corpuscular Hgb Conc. 33.2 g/dL (32.0-36.0); Mean Corpuscular Volume 92.3 fL (80.0-100.0); Monocytes # (auto) 1.3 10 ^3/uL (0-1.3); Monocytes % (auto) 13.6 % (0.0-12.0); Nucleated Red Blood Cells % 0.1 %; Platelet Count (auto) 191 10^3/uL (140-450); Red Blood Cells 3.32 10^6/uL (4.5-5.90); White Blood Cell 9.7 10^3/uL (4.4-10.8)
[2019-11-13 04:31] LABS: Calcium 8.6 mg/dL (8.5-10.1); Potassium 3.8 mmol/L (3.5-5.1)
[2019-11-13 04:34] LABS: BUN/Creatinine Ratio 39.6
[2019-11-13] MEDS: InsuLIN REG 1unit/0.01ml Soln (100units/ml) SC SCH ×4 (05:33→22:18)
[2019-11-13] MEDS: ACCU-CHEK COMFORT CURVE STRIP VI SCH ×4 (05:33→22:08)
--- NOTE | 2019-11-13 06:00 | NUR ---
NONCOMPLIANT WITH KEEPING HIS OXYGEN ON. HE WILL TAKE IT OFF AND THEN IN FRUSTRATION AT PUTTING IT BACK ON HE CALLS OUT AND YOU PUT IT BACK ON.
--- NOTE | 2019-11-13 07:15 | NUR ---
REPORT RECEIVED ASSUMING CARE PULLED UP IN BED WITH JOHNNY BORREGO RN, NON PRODUCTIVE COUGH NOTED SUCTION IN HAND EDUCATED ON USE
--- NOTE | 2019-11-13 08:30 | NUR ---
ASSESSMENT COMPLETED, SEE INTERVENTIONS. PATIENT DENIES ANY PAIN. ALERT/ORIENTED TO PERSON/PLACE. CALL LIGHT IN REACH. BED IN LOW POSITION.
[2019-11-13] MEDS: FUROSEMIDE 100 MG/10ML VIAL IV SCH (09:50)
[2019-11-13] MEDS: MEROPENEM 1GM IVPB 100 ML IV SCH ×2 (09:50→22:07)
[2019-11-13] MEDS: PANTOPRAZOLE 40 MG/10 ML VIAL INJ IV SCH (09:50)
[2019-11-13] MEDS: SODIUM CHLOR 0.9% PF (SALINE LOCK) 10ML VIAL/SYR IV SCH ×2 (09:51→22:11)
[2019-11-13] MEDS: CARVEDILOL 3.125 MG TAB PO SCH ×2 (09:51→22:08)
[2019-11-13] MEDS ORDERED: guaiFENesin 200 MG/10 ML UD PO PRN (10:30)
--- NOTE | 2019-11-13 10:30 | NUR ---
DR CHILEL AT BEDSIDE NEW ORDERS RECEIVED.
[2019-11-13] MEDS: ALBUTEROL SULF 2.5 MG/0.5ML(0.5%) NEB SOLN NEB SCH ×2 (11:28→18:27)
[2019-11-13] MEDS: ACETYLCYSTEINE 10 %(100MG/ML) SOL 4ML NEB SCH ×2 (11:28→18:27)
[2019-11-13] MEDS ORDERED: ASPirin 81 mg TAB PO ONE (12:30)
[2019-11-13] MEDS ORDERED: CLOPIDOGREL 300 MG TAB PO ONE (12:30)
--- NOTE | 2019-11-13 12:30 | NUR ---
DR BARBA AT BEDSIDE EXAMINED PATIENT, AWARE OF SBP AND NEW ORDERS RECEIVED. PLAN FOR HEART CATH ON FRIDAY.
[2019-11-13] MEDS: NOREPINEPHRINE 8 MG/250ML KIT 250 ML IV SCH (12:31)
[2019-11-13] MEDS: MIDAZOLAM DRIP 50 mg/50mL 50 ML IV SCH (12:31)
[2019-11-13] MEDS: fentaNYL Drip 2500mCg/250mlNS 250 ML IV SCH (12:31)
[2019-11-13] MEDS: guaiFENesin 200 MG/10 ML UD PO SCH ×2 (12:38→18:03)
[2019-11-13] MEDS: amLODIPine BESYLATE 5 MG TAB PO SCH (13:49)
[2019-11-13] MEDS: cloNIDine HCL 0.1 MG TAB PO PRN (17:43)
[2019-11-13] MEDS: ENOXAPARIN SOD 40 MG/0.4 ML SYRINGE SC SCH (18:03)
[2019-11-13] MEDS: TAMSULOSIN HYDROCHLORIDE 0.4 MG CAP PO SCH (18:03)
--- NOTE | 2019-11-13 18:26 | NUR ---
SBP REMAINS OVER 150. CLONIDINE GIVEN ORDERED.
[2019-11-13] MEDS: IPRATROPIUM BROM 0.5 MG/2.5ML INH SOL NEB SCH (18:27)
--- NOTE | 2019-11-13 19:31 | NUR ---
REPORT GIVEN TO JOHNNY MORENO
--- NOTE | 2019-11-13 19:51 | NUR ---
TELEPHONE CONSENT FROM ISAIAS AUGUSTINE, SON FOR LEFT HEART CATHETERIZATION AND IF NEED BE, BLOOD TRANSFUSION. TXM ORDERED.
--- NOTE | 2019-11-13 20:00 | NUR ---
MOSTLY [place] SPEAKING. UNDERSTANDS A FAIR AMOUNT OF SERBIAN. ORIENTED TO SELF. DISORIENTED TO WHY HE IS HERE. [place]. LUNGS CLEAR. 3LNP. RR 20. DIURESED ON DAYSHIFT. RR HAS IMPROVED. NSR WITH FREQUENT PACS. NO FEVER. ABDOMEN VERY ROUND, LARGE, AND SOFT. RODRIGUEZ IN PLACE DRAINING PINK URINE. ALL PULSES PALPABLE. SMALL AMOUNT OF PITTING EDEMA IN LEGS. BRAVO. WEAK.
--- NOTE | 2019-11-13 21:39 | NUR ---
CALL RECEIVED FROM DR JAMES. INFORMED HIM OF HIS STOMACH PAIN, PREVIOUS HIGH RESIDUALS FROM HIS NGT AND NOW A HEART RATE OF 134. AWARE OF HIS HTN. NO BOLUS AT THIS TIME. ORDER TO START NS AT 60CC/HR AND MONITOR HIM FROM THERE.
--- NOTE | 2019-11-13 21:40 | NUR ---
PREVIOUS NOTE ON WRONG CHART
[2019-11-13] MEDS ORDERED: SODIUM CHLORIDE 0.9% 1,000 ML IV SCH (21:45)
--- NOTE | 2019-11-13 22:00 | NUR ---
PULLED O2 SAT PROBE AND OXYGEN OFF. REPLACED. NSR WITH FREQUENT PACS. LUNGS CLEAR. PICC LINE DRESSING CLEAN, DRY. SITE SHOWS NO REDNESS OR SWELLING.
[2019-11-13] MEDS: PRAVASTATIN SODIUM 20 MG TAB PO SCH (22:07)
[2019-11-14] VITALS (19 sets, daily range): BP systolic 116–163; BP diastolic 54–86
--- NOTE | 2019-11-14 | NUR ---
PULLED EVERYTHING OFF. REPLACED EVERYTHING. IV SITE SHOWS NO REDNESS OR SWELLING. REPOSITIONED TO RIGHT SIDE. STATES THAT HE DOESN'T NEED A COVER SHEET. NO SKIN ISSUES. ROBITUSSIN IS HELPING HIS COUGH. NOT COUGHED UP ANY SECRETIONS. NPO NOW FOR PROCEDURE TOMORROW. HEART CATH TO BE DONE BY DR BARBA. EXACT TIME OF HEART CATH UNKNOWN. SON TRIED TO INFORM THE PATIENT OF HIS PROCEDURE AND HE KEPT SAYING "I JUST WANT TO GO TO SLEEP".
[2019-11-14] MEDS: ALBUTEROL SULF 2.5 MG/0.5ML(0.5%) NEB SOLN NEB PRN (00:11)
[2019-11-14] MEDS: IPRATROPIUM BROM 0.5 MG/2.5ML INH SOL NEB PRN (00:11)
[2019-11-14] MEDS: ACETYLCYSTEINE 10 %(100MG/ML) SOL 4ML NEB SCH ×4 (00:12→18:56)
[2019-11-14] MEDS: LINEZOLID 600MG/300ML 300 ML IV SCH ×2 (00:14→15:11)
[2019-11-14] MEDS: guaiFENesin 200 MG/10 ML UD PO SCH ×4 (00:14→16:32)
--- NOTE | 2019-11-14 02:00 | NUR ---
PLACED ON BEDPAN. PATIENT WANTED TO GET UP AND WALK TO THE TOILET. HE IS WEAK AND I DON'T BELIEVE HE WOULD MAKE IT.NSR WITH PACS. PLACED ON BEDPAN.
[2019-11-14] MEDS: cloNIDine HCL 0.1 MG TAB PO PRN (02:34)
--- NOTE | 2019-11-14 02:34 | NUR ---
ADELAIDEAPRES FOR SBP 160
--- NOTE | 2019-11-14 03:15 | NUR ---
AM LAB DRAWS
--- NOTE | 2019-11-14 04:15 | NUR ---
CHG BATH. BEDPAN, NO BM. ABDOMEN IS MORE FIRM. PATIENT MOANS . DENIES PAIN. NSR WITH OCCASIONAL TO FREQUENT PACS. LESS COUGHING TONIGHT. NONPRODUCTIVE COUGH.
[2019-11-14 04:26] LABS: Basophils # (auto) 0 10 ^3/uL (0-0.2); Basophils % (auto) 0.2 % (0.0-2.0); Eosinophils # (auto) 0.1 10 ^3/uL (0-0.8); Hematocrit 31.1 % (41.0-53.0); Hemoglobin 10.3 g/dL (13.5-17.5); Lymphocytes # (auto) 1.3 10 ^3/uL (0.4-5.4); Lymphocytes % (auto) 12.8 % (10.0-50.0); Mean Corpuscular Hemoglobin 30.3 pg (28.0-32.0); Mean Corpuscular Hgb Conc. 33.2 g/dL (32.0-36.0); Mean Corpuscular Volume 91.3 fL (80.0-100.0); Monocytes # (auto) 1.2 10 ^3/uL (0-1.3); Monocytes % (auto) 11.5 % (0.0-12.0); Neutrophils # (auto) 7.8 10 ^3/uL (1.6-8.6); Neutrophils % (auto) 74.5 % (37.0-80.0); Nucleated Red Blood Cells % 0.1 %; Platelet Count (auto) 191 10^3/uL (140-450); Red Blood Cells 3.41 10^6/uL (4.5-5.90); Red Cell Distribution Width 14.4 % (11.8-14.3); White Blood Cell 10.4 10^3/uL (4.4-10.8)
[2019-11-14 04:45] LABS: Chloride 106 mmol/L (98-107); Potassium 3.6 mmol/L (3.5-5.1); Sodium 141 mmol/L (136-145)
[2019-11-14 05:00] LABS: Alanine Aminotransferase 34 U/L (16-61); Albumin 2.6 g/dL (3.4-5.0); Alkaline Phosphatase 85 U/L (45-117); Anion Gap 4 (5-15); Aspartate Aminotransferase 31 U/L (15-37); BUN/Creatinine Ratio 34.5; Blood Urea Nitrogen 49 mg/dL (7-18); Calcium 8.4 mg/dL (8.5-10.1); Carbon Dioxide 31 mmol/L (21-32); GFR African American 62 mL/min; GFR Non-African American 51 mL/min; Glucose 211 mg/dL (74-106); Total Protein 7.1 g/dL (6.4-8.2)
[2019-11-14] MEDS: InsuLIN REG 1unit/0.01ml Soln (100units/ml) SC SCH ×4 (05:28→22:00)
[2019-11-14] MEDS: ACCU-CHEK COMFORT CURVE STRIP VI SCH ×4 (05:36→22:00)
[2019-11-14] MEDS: IPRATROPIUM BROM 0.5 MG/2.5ML INH SOL NEB SCH ×3 (06:57→18:56)
[2019-11-14] MEDS: ALBUTEROL SULF 2.5 MG/0.5ML(0.5%) NEB SOLN NEB SCH ×3 (06:57→18:56)
--- NOTE | 2019-11-14 07:40 | NUR ---
OPENING SHIFT NOTE REPORT RECEIVED FROM MODEL SET ARTIST RN, MORNING ASSESSMENT PERFORMED AND DOCUMENTED. 79 YEAR OLD PASHTO SPEAKING MALE RESTING IN BED WITH EYES CLOSED, PATIENT OPENS EYES SPONTANEOUSLY WHEN CALLED BY NAME, ALERT TO SELF AND PLACE, NO DISTRESS NOTED, RESPIRATIONS EVEN AND UNLABORED. PATIENT DENIES PAIN OR DISCOMFORT AT THIS TIME. RODRIGUEZ CATHETER DRAINING CLEAR PINK TINGED URINE TO GRAVITY. PATIENT REPOSITIONED FOR COMFORT AND TO MAINTAIN SKIN INTEGRITY. FALL AND SAFETY PRECAUTIONS IN PLACE, CALL LIGHT AND ALL OTHER PERSONAL BELONGINGS WITHIN REACH. WILL CONTINUE TO MONITOR.
--- NOTE | 2019-11-14 09:46 | NUR ---
HOSPITALIST AT BEDSIDE DR CHILEL UPDATED ON PATIENT'S STATUS, ECG READING AND DR WARNER'S NOTE OF OK FOR [facility] DOWNGRADE. ORDERS RECEIVED FOR [facility] DOWNGRADE, DR CHILEL ALSO AWARE OF PINK/BLOODY TINGED URINE AND MEDICATION TO BE ADMINISTERED. DR CHILEL VERBALIZED UNDERSTANDING AND ORDERED MEDICATIONS TO CONTINUE TO BE ADMINISTERED. DR CHILEL DISCUSSED PLAN OF CARE WITH PATIENT AT BEDSIDE. Addendum: 11/14/19 at 0949 by Edna Goyal RN PUBLISHING SYSTEMS ANALYST AND CHARGE NURSE AWARE OF [facility] DOWNGRADE.
--- NOTE | 2019-11-14 09:52 | NUR ---
MEDICATION DISCONTINUED ORDERS TO DISCONTINUE LOVENOX RECEIVED FROM HOSPITALIST - CONTINUE TO ADMINISTER PLAVIX AND ASPIRIN.
[2019-11-14] MEDS: MIDAZOLAM DRIP 50 mg/50mL 50 ML IV SCH (10:01)
[2019-11-14] MEDS: fentaNYL Drip 2500mCg/250mlNS 250 ML IV SCH (10:12)
[2019-11-14] MEDS: PANTOPRAZOLE 40 MG/10 ML VIAL INJ IV SCH (10:21)
[2019-11-14] MEDS: MEROPENEM 1GM IVPB 100 ML IV SCH ×2 (10:21→22:00)
[2019-11-14] MEDS: CARVEDILOL 3.125 MG TAB PO SCH ×2 (10:22→22:00)
[2019-11-14] MEDS: FUROSEMIDE 100 MG/10ML VIAL IV SCH (10:22)
[2019-11-14] MEDS: CLOPIDOGREL BISULFATE 75 MG TAB PO SCH (10:23)
[2019-11-14] MEDS: amLODIPine BESYLATE 5 MG TAB PO SCH (10:23)
[2019-11-14] MEDS: NOREPINEPHRINE 8 MG/250ML KIT 250 ML IV SCH (10:23)
[2019-11-14] MEDS: ASPirin 81 mg TAB PO SCH (10:23)
[2019-11-14] MEDS: SODIUM CHLOR 0.9% PF (SALINE LOCK) 10ML VIAL/SYR IV SCH (10:24)
--- NOTE | 2019-11-14 11:07 | NUR ---
BREAKFAST/COMFORT PATIENT ABLE TO EAT BREAKFAST BY HIMSELF WITH MINIMAL ASSISTANCE, PATIENT ALSO PLACED ON BEDPAN PRIOR TO PROVIDING BREAKFAST WITH NO BOWEL MOVEMENT AT THIS TIME. WILL CONTINUE TO MONITOR.
--- NOTE | 2019-11-14 11:55 | NUR ---
CONTACT HOSPITALIST REGARDING RIGHT ARM SPOKE WITH DR CHILEL, NOTIFIED OF PATIENT'S RIGHT HAND SWELLING AND PATIENT REPORTING RIGHT ELBOW PAIN. DR ALSO AWARE OF ARM FEELING WARMER THAN LEFT. ORDERS FOR INDOMETHACIN 25 MG PO TID WITH MEALS AND ULTRA SOUND RIGHT ARM RECEIVED. ORDERS WILL BE CARRIED OUT.
--- NOTE | 2019-11-14 13:40 | NUR ---
Family updated on pt status Family of TATYANA AUGUSTINE updated on patient's status and condition after password verification. All questions and concerns addressed. Patient's son Mitch verbalized understanding.
[2019-11-14] MEDS: INDOMETHACIN 25 MG CAP PO SCH ×2 (15:17→22:00)
[2019-11-14] MEDS: Glucerna Carbsteady SHAKE Vanilla 8oz PO SCH ×2 (15:19→18:47)
--- NOTE | 2019-11-14 16:23 | NUR ---
REPORT CALLED TO RECEIVING RN IN [facility], AWAITING ROOM TO BE CLEANED FOR TRANSFER.
[2019-11-14] MEDS: TAMSULOSIN HYDROCHLORIDE 0.4 MG CAP PO SCH (16:32)
--- NOTE | 2019-11-14 16:37 | NUR ---
PAIN REASSESSMENT PATIENT REPORTS PAIN 03/16 AND STATES IN [place] "I HAVE HAD THIS PAIN FOR A LONG TIME NOW NOTHING WILL HELP IT".
--- NOTE | 2019-11-14 18:33 | NUR ---
GA pt transferred to [facility] TATYANA AUGUSTINE transferred to via ranirudh on cardiac cath lab manager and portable 02. All patient medications and personal belongings transferred with patient to receiving floor. Patient alert and oriented x4, Mongolian speaking, no distress noted, respirations even and unlabored on 3 liters nasal cannula. Patient transferred self with minimal to moderate assistance to [facility] bed. Patient care transferred to [facility] RN. Patient's son Mitch notified.
--- NOTE | 2019-11-14 18:35 | NUR ---
Patient sitting up on the bed with high hardin position, dinner tray provided. Turned TV on for patient. HR 67 with SR with PAC, BP 143/59 mmHg, on O2 NC 3 LPM, O2 saturation 99%, RR 20/min. PICC line at right upper arm, NS locked, on Dasilva's catheter, urine drain to bag well.
--- NOTE | 2019-11-14 18:51 | NUR ---
Patient had Dinner around 20%, try to finish Glucerna. No N/V noted.
[2019-11-14] MEDS: PRAVASTATIN SODIUM 20 MG TAB PO SCH (22:00)
[2019-11-15] VITALS (11 sets, daily range): BP systolic 132–142; BP diastolic 48–76
[2019-11-15] MEDS: LINEZOLID 600MG/300ML 300 ML IV SCH ×2 (04:08→13:18)
[2019-11-15] MEDS: guaiFENesin 200 MG/10 ML UD PO SCH ×4 (04:12→17:50)
[2019-11-15] MEDS: IPRATROPIUM BROM 0.5 MG/2.5ML INH SOL NEB SCH ×3 (05:52→18:39)
[2019-11-15] MEDS: ALBUTEROL SULF 2.5 MG/0.5ML(0.5%) NEB SOLN NEB SCH ×3 (05:52→18:38)
[2019-11-15] MEDS: ACETYLCYSTEINE 10 %(100MG/ML) SOL 4ML NEB SCH ×3 (05:53→18:39)
[2019-11-15] MEDS: SODIUM CHLOR 0.9% PF (SALINE LOCK) 10ML VIAL/SYR IV SCH ×3 (05:55→22:26)
[2019-11-15] MEDS: INDOMETHACIN 25 MG CAP PO SCH ×2 (06:00→13:31)
[2019-11-15 06:02] LABS: Basophils # (auto) 0 10 ^3/uL (0-0.2); Basophils % (auto) 0.3 % (0.0-2.0); Eosinophils # (auto) 0.3 10 ^3/uL (0-0.8); Eosinophils % (auto) 2.3 % (0.0-7.0); Hematocrit 29.3 % (41.0-53.0); Hemoglobin 9.7 g/dL (13.5-17.5); Lymphocytes # (auto) 1.3 10 ^3/uL (0.4-5.4); Lymphocytes % (auto) 10.8 % (10.0-50.0); Mean Corpuscular Hemoglobin 30.3 pg (28.0-32.0); Mean Corpuscular Volume 91.6 fL (80.0-100.0); Monocytes # (auto) 1.1 10 ^3/uL (0-1.3); Monocytes % (auto) 9.5 % (0.0-12.0); Neutrophils % (auto) 77.1 % (37.0-80.0); Platelet Count (auto) 162 10^3/uL (140-450); Red Cell Distribution Width 14.2 % (11.8-14.3); White Blood Cell 11.7 10^3/uL (4.4-10.8)
[2019-11-15 06:14] LABS: INR 1.13 (0.9-1.15); Partial Thromboplastin Time 37.6 sec (23.64-32.05)
[2019-11-15 06:27] LABS: Potassium 3.6 mmol/L (3.5-5.1)
[2019-11-15] MEDS: ACCU-CHEK COMFORT CURVE STRIP VI SCH ×4 (06:30→22:27)
[2019-11-15] MEDS: InsuLIN REG 1unit/0.01ml Soln (100units/ml) SC SCH ×4 (06:31→22:27)
[2019-11-15 06:33] LABS: BUN/Creatinine Ratio 36.2; Calcium 8.2 mg/dL (8.5-10.1)
--- NOTE | 2019-11-15 07:00 | NUR ---
Pt remained stable this shift. No S/S of distress and denied pain other than right elbow. NPO after midnight for prep for left heart cath today. Picc line intact and flushed and pulls with ease. Pt was bathed with CHG wipes at 0500 and is prepared for procedure. Report given to AM shift, care endorsed.
[2019-11-15] MEDS: Glucerna Carbsteady SHAKE Vanilla 8oz PO SCH ×3 (08:00→17:18)
--- NOTE | 2019-11-15 08:00 | NUR ---
Opening Shift Note Assumed care of patient, awake and alert, follow direction, Welsh speaking, understand French a little. No S/S of distress/SOB or chest pain noted. Instructed on POC and to call for assist PRN, will continue to monitor for changes Q1hr and PRN. Patient still NPO.
--- NOTE | 2019-11-15 08:55 | NUR ---
Called Mitch (son) and transferred his call in the room for patient.
--- NOTE | 2019-11-15 09:00 | NUR ---
Staffs from quality assurance/r&d lab technician a the bedside.
--- NOTE | 2019-11-15 09:15 | NUR ---
Patient was taken to lab engineer, will hold morning medication due to patient out off the unit.
[2019-11-15] MEDS ORDERED: IODIXANOL 320MG/ML 100ML BTL IV ONE ×2 (09:36→11:37)
[2019-11-15] MEDS ORDERED: LIDOCAINE 2%HCL (LOCAL ANESTH.) INJ 20ML MDV ONE (09:36)
[2019-11-15] MEDS: CLOPIDOGREL BISULFATE 75 MG TAB PO SCH (10:00)
[2019-11-15] MEDS: MEROPENEM 1GM IVPB 100 ML IV SCH ×2 (10:00→22:26)
[2019-11-15] MEDS: ASPirin 81 mg TAB PO SCH (10:00)
[2019-11-15] MEDS: MIDAZOLAM DRIP 50 mg/50mL 50 ML IV SCH (10:01)
[2019-11-15] MEDS: fentaNYL Drip 2500mCg/250mlNS 250 ML IV SCH (10:12)
[2019-11-15] MEDS: NOREPINEPHRINE 8 MG/250ML KIT 250 ML IV SCH (10:23)
[2019-11-15] MEDS ORDERED: fentaNYL CITRATE 100 MCG/2 ML VL ONE (11:15)
[2019-11-15] MEDS ORDERED: ANGIOMAX 250 MG VIAL IV ONE (11:15)
[2019-11-15] MEDS ORDERED: MIDAZOLAM HCL 1MG/1ML-2 ML VIAL ONE ×2 (11:15→11:59)
[2019-11-15] MEDS ORDERED: SODIUM CHL 0.9% 50 ML ONE (11:15)
[2019-11-15] MEDS ORDERED: ASPirin 81 mg TAB ONE (12:10)
[2019-11-15] MEDS ORDERED: CLOPIDOGREL BISULFATE 75 MG TAB ONE (12:10)
--- NOTE | 2019-11-15 12:22 | NUR ---
Pt to [facility] on monitor with 2 RNs and on O2. Unable to give report at this time as RN and charge are with other pts. Will give bedside report. Pt tolerated procedure well.
--- NOTE | 2019-11-15 12:30 | NUR ---
Pt transported from orthodontic laboratory technician to [facility] in stable condition. Bedside report given to Darnell Menendez in detail. Pt connected to equipment monitoring and oxygen. Pt a/o x4. Pt denies pain and nausea. Right groin soft with no s/s of bleeding or hematoma. No other incidents to report.
--- NOTE | 2019-11-15 12:35 | NUR ---
Patient came back from skilled labor, patient made aware that need to keep right leg flat for 2 hours until 2.30pm. On O2 NC 3 LPM. Right groin cover with gauze and tegaderm, no bleeding or hematoma noted. ASA and Plavix given from skilled labor.
[2019-11-15] MEDS: FUROSEMIDE 100 MG/10ML VIAL IV SCH (13:20)
[2019-11-15] MEDS: PANTOPRAZOLE 40 MG/10 ML VIAL INJ IV SCH (13:20)
[2019-11-15] MEDS: CARVEDILOL 3.125 MG TAB PO SCH ×2 (13:21→22:26)
[2019-11-15] MEDS: amLODIPine BESYLATE 5 MG TAB PO SCH (13:21)
--- NOTE | 2019-11-15 14:45 | NUR ---
Dr. Recinos at the bedside, seen and examined patient at this time. No new order noted.
--- NOTE | 2019-11-15 14:51 | NUR ---
Patient is awake, sitting up, turned on TV for patient. Right groin no bleeding or hematoma noted.
--- NOTE | 2019-11-15 14:56 | NUR ---
Nutrition Assessment Notes Please see attached link for complete assessment Est Energy needs ABW 89 k-2225kcals (23-25 kcal/kgBW), Est Protein needs: 71-89 gms/day (0.8-1.0 gm/kgBW r/t Elev RFT). will reassess prn Addendum: 11/15/19 at [address] Amended: Links added.
--- NOTE | 2019-11-15 15:10 | NUR ---
Dr. Ulloa at the bedside, seen and examined patient at this time, MD talked to patient in Sammarinese. Will continue to monitor and care, will continue IS for breathing exercise.
--- NOTE | 2019-11-15 16:59 | NUR ---
Patient is stable, no comaplining of chest pain HR 60-70 /min, SBP 143826 mmHg, no fever noted, on O2 NC 3 LPM O2 saturation 100%, RR 20-22/min, called and spoke to claudia Hubbard for transfer to [facility] with Sitter.
[2019-11-15] MEDS: TAMSULOSIN HYDROCHLORIDE 0.4 MG CAP PO SCH (17:50)
--- NOTE | 2019-11-15 19:30 | NUR ---
OPENING SHIFT RECEIVED REPORT FROM DAY SHIFT RN. ASSUMED CARE OF PATIENT . PATIENT IN BED WATCHING TV WITH NO SIGNS OR SYMPTOMS OF SOB, PAIN OR DISTRESS. CURRENTLY ON 3L 02 NASAL CANNULA, 02 SAT - 96%. RIGHT UPPER ARM PICC TLC - CLEAN/DRY/INTACT. RIGHT GROIN S/P HEART CATH DRESSING - CLEAN/DRY/INTACT NO SIGNS OF BLEEDING OR HEMATOMA. RODRIGUEZ HUNG TO GRAVITY. REPOSITIONED FOR COMFORT. UPDATED PATIENT ON PLAN OF CARE TRANSLATED VIA KENYAN SPEAKING RN. BED IN LOWEST POSITION, SIDE RAILS UPX2, WILL CONTINUE TO MONITOR.
[2019-11-15] MEDS: PRAVASTATIN SODIUM 20 MG TAB PO SCH (22:27)
--- NOTE | 2019-11-15 23:04 | NUR ---
Assumed care of patient: Assumed care of patient, awake and alert. No S/S of distress/SOB or pain. Instructed on POC and to call for assist PRN, will continue to monitor for changes Q1hr and PRN.
--- NOTE | 2019-11-16 01:08 | NUR ---
SPOKE WITH SON (ISAIAS) PASSWORD VERIFIED, UPDATED SON ON PLAN OF CARE AND STATUS OF PATIENT, ALL QUESTIONS ANSWERED.
--- NOTE | 2019-11-16 02:45 | NUR ---
Patient refused linen change or bath: Patient was awake and RN offered patient to have a bath and/or linen change but patient refused at this time.
[2019-11-16 03:19] LABS: Basophils # (auto) 0 10 ^3/uL (0-0.2); Basophils % (auto) 0.2 % (0.0-2.0); Eosinophils # (auto) 0.4 10 ^3/uL (0-0.8); Eosinophils % (auto) 3.3 % (0.0-7.0); Hematocrit 26.7 % (41.0-53.0); Hemoglobin 8.7 g/dL (13.5-17.5); Lymphocytes # (auto) 1.5 10 ^3/uL (0.4-5.4); Lymphocytes % (auto) 13.3 % (10.0-50.0); Mean Corpuscular Hgb Conc. 32.7 g/dL (32.0-36.0); Mean Corpuscular Volume 91.8 fL (80.0-100.0); Monocytes # (auto) 1.2 10 ^3/uL (0-1.3); Monocytes % (auto) 10.3 % (0.0-12.0); Neutrophils # (auto) 8.4 10 ^3/uL (1.6-8.6); Neutrophils % (auto) 72.9 % (37.0-80.0); Platelet Count (auto) 151 10^3/uL (140-450); Red Blood Cells 2.91 10^6/uL (4.5-5.90); Red Cell Distribution Width 13.9 % (11.8-14.3); White Blood Cell 11.5 10^3/uL (4.4-10.8)
[2019-11-16 03:39] LABS: BUN/Creatinine Ratio 30.4; Potassium 3.3 mmol/L (3.5-5.1)
[2019-11-16 04:00] VITALS: BP 144/66
--- NOTE | 2019-11-16 04:58 | NUR ---
Hospitalist paged: Hospitalist paged d/t patient having abnormal potassium and calcium levels.
--- NOTE | 2019-11-16 05:04 | NUR ---
Hospitalist returned page: Hospitalist informed of patient's abnormal lab values. New orders obtained and verified.
[2019-11-16] MEDS: POTASSIUM CHL 20MEQ/100ML 100 ML IV SCH ×2 (05:15→07:01)
[2019-11-16] MEDS ORDERED: POTASSIUM CHL 20MEQ/100ML 200 ML IV ONE (05:20)
--- NOTE | 2019-11-16 05:59 | NUR ---
Patient noted with 500mL urine output.
[2019-11-16] MEDS: ACETYLCYSTEINE 10 %(100MG/ML) SOL 4ML NEB SCH ×4 (06:00→19:40)
[2019-11-16] MEDS: IPRATROPIUM BROM 0.5 MG/2.5ML INH SOL NEB SCH ×3 (06:00→19:41)
[2019-11-16] MEDS: ALBUTEROL SULF 2.5 MG/0.5ML(0.5%) NEB SOLN NEB SCH ×3 (06:00→19:40)
[2019-11-16] MEDS: guaiFENesin 200 MG/10 ML UD PO SCH ×4 (06:03→18:19)
[2019-11-16] MEDS: InsuLIN REG 1unit/0.01ml Soln (100units/ml) SC SCH ×4 (06:05→22:06)
[2019-11-16] MEDS: ACCU-CHEK COMFORT CURVE STRIP VI SCH ×4 (06:05→22:05)
[2019-11-16 08:00] VITALS: BP 135/69
--- NOTE | 2019-11-16 08:00 | NUR ---
AM ASSESSMENT COMPLETED DENIES ANY CP OR S.O.B. VSS, PT ON 3 L O2 VIA NC. RT GROIN ANGIO CATH ACCESS SITE BENIGN. EDUCATED ON POC. PT VERBALIZED UNDERSTANDING.
--- NOTE | 2019-11-16 08:40 | NUR ---
DR. NGUYEN ROUNDING ON PT. HE EDUCATED PT ON POC. HE EXPLAINED TO PT THAT HE CAN BE DISCHARGED HOME ONCE HE HAS HOSPITALIST AND SHANK STITCHER CLEARANCE, STATES PT CAN BE TITRATED DOWN ON . I TOLD WE'LL HAVE PT USE INCENTIVE SPIROMETER TO EXERCISE HIS LUNGS.
[2019-11-16] MEDS: NOREPINEPHRINE 8 MG/250ML KIT 250 ML IV SCH (10:23)
[2019-11-16] MEDS: PANTOPRAZOLE 40 MG/10 ML VIAL INJ IV SCH (10:42)
[2019-11-16] MEDS: MEROPENEM 1GM IVPB 100 ML IV SCH ×2 (10:42→21:44)
[2019-11-16] MEDS: SODIUM CHLOR 0.9% PF (SALINE LOCK) 10ML VIAL/SYR IV SCH ×2 (10:43→21:49)
[2019-11-16] MEDS: amLODIPine BESYLATE 5 MG TAB PO SCH (10:44)
[2019-11-16] MEDS: CLOPIDOGREL BISULFATE 75 MG TAB PO SCH (10:44)
[2019-11-16] MEDS: ASPirin 81 mg TAB PO SCH (10:45)
[2019-11-16] MEDS: CARVEDILOL 3.125 MG TAB PO SCH ×2 (10:45→22:00)
[2019-11-16] MEDS: Glucerna Carbsteady SHAKE Vanilla 8oz PO SCH ×3 (10:51→18:20)
[2019-11-16 11:47] VITALS: BP 141/62
[2019-11-16] MEDS: LINEZOLID 600MG/300ML 300 ML IV SCH ×2 (12:12)
--- NOTE | 2019-11-16 13:15 | NUR ---
DR. LITTLEJOHN ROUNDING ON PT. WANTS TO KEEP PT HOSPITALIZED ONE OR TWO MORE DAYS S/P HEART CATH TO MONITOR KIDNEY FUNCTION. PT'S BUN + CR INCREASED S/P HEART CATH YESTERDAY. ALREADY SPOKE TO PT'S SON. PT IN [facility] BUT ON TELEMETRY STATUS AWAITING FOR A TELEMETRY BED. PT IS JUST ANXIOUS BECAUSE HE DOES NOT HAVE A REGULAR BATHROOM TO MOVE HIS BOWELS.
--- NOTE | 2019-11-16 13:25 | NUR ---
PT DESATURATED TO 79 % ON ROOM AIR. I NOTIFIED DR. LITTLEJOHN, PT'S SPO2 CAME BACK UP AFTER 1 MIN AFTER PLACING HIM BACK ON THE NC AT 3 L MIN.
[2019-11-16 16:00] VITALS: BP 128/64
--- NOTE | 2019-11-16 17:48 | NUR ---
PAGED DR. LITTLEJOHN REGARDING LOW UOP. 150 IN THE 12 HOUR SHIFT. PT IS A 1200 FLUID RESTRICTION PT ONLY HAD 450 INTAKE. MD CALL BACK IMMEDIATELY, SHE SAID SHE'LL LOOK AT THE LABS TOMORROW IN THE AM, "TO LEAVE THE PT ALONE FOR TONIGHT."
[2019-11-16] MEDS: TAMSULOSIN HYDROCHLORIDE 0.4 MG CAP PO SCH (18:19)
[2019-11-16 20:00] VITALS: BP 131/60
--- NOTE | 2019-11-16 20:00 | NUR ---
OPENING SHIFT RECEIVED REPORT FROM DAY SHIFT RN. ASSUMED CARE OF PATIENT . PATIENT IN BED WATCHING TV WITH NO SIGNS OR SYMPTOMS OF SOB, PAIN OR DISTRESS. CURRENTLY ON 3L 02 NASAL CANNULA, 02 SAT - 97%. RIGHT UPPER ARM PICC TLC - CLEAN/DRY/INTACT. RIGHT GROIN S/P HEART CATH DRESSING - CLEAN/DRY/INTACT NO SIGNS OF BLEEDING OR HEMATOMA. RODRIGUEZ HUNG TO GRAVITY. REPOSITIONED FOR COMFORT. UPDATED PATIENT ON PLAN OF CARE. BED IN LOWEST POSITION, SIDE RAILS UPX2, WILL CONTINUE TO MONITOR.
[2019-11-16] MEDS: PRAVASTATIN SODIUM 20 MG TAB PO SCH (21:45)
--- NOTE | 2019-11-16 23:47 | NUR ---
Received report from [facility] Goode RN.
--- NOTE | 2019-11-16 23:50 | NUR ---
[facility] pt transferred to floor Received patient TATYANA AUGUSTINE transferred from [facility] after receiving report from Russel [facility] RN. Patient transferred to bed on MST floor, placed on O2 at 3L, all patient personal belongings at bedside. Will continue to monitor.
[2019-11-17 00:44] VITALS: BP 137/73
[2019-11-17 06:16] VITALS: BP 127/64
[2019-11-17] MEDS: ALBUTEROL SULF 2.5 MG/0.5ML(0.5%) NEB SOLN NEB SCH ×3 (06:27→18:52)
[2019-11-17] MEDS: IPRATROPIUM BROM 0.5 MG/2.5ML INH SOL NEB SCH ×3 (06:27→18:52)
[2019-11-17] MEDS: ACETYLCYSTEINE 10 %(100MG/ML) SOL 4ML NEB SCH ×3 (06:28→18:52)
[2019-11-17] MEDS: ACCU-CHEK COMFORT CURVE STRIP VI SCH ×4 (06:44→22:02)
[2019-11-17] MEDS: guaiFENesin 200 MG/10 ML UD PO SCH ×4 (06:44→18:00)
[2019-11-17] MEDS: InsuLIN REG 1unit/0.01ml Soln (100units/ml) SC SCH ×4 (06:45→22:03)
--- NOTE | 2019-11-17 07:35 | NUR ---
Opening Shift Note Assumed care of patient, awake and alert x2 andorran speaking. No S/S of distress/SOB or pain. Instructed on POC and to call for assist PRN, will continue to monitor for changes Q1hr and PRN.
[2019-11-17 09:00] VITALS: BP 129/71
[2019-11-17] MEDS: MEROPENEM 1GM IVPB 100 ML IV SCH ×2 (09:29→22:01)
[2019-11-17] MEDS: SODIUM CHLOR 0.9% PF (SALINE LOCK) 10ML VIAL/SYR IV SCH ×2 (09:29→22:02)
[2019-11-17] MEDS: Glucerna Carbsteady SHAKE Vanilla 8oz PO SCH ×3 (09:29→18:00)
[2019-11-17] MEDS: PANTOPRAZOLE 40 MG/10 ML VIAL INJ IV SCH (09:29)
[2019-11-17] MEDS: CARVEDILOL 3.125 MG TAB PO SCH ×2 (09:30→22:01)
[2019-11-17] MEDS: ASPirin 81 mg TAB PO SCH (09:30)
[2019-11-17] MEDS: CLOPIDOGREL BISULFATE 75 MG TAB PO SCH (09:31)
[2019-11-17] MEDS: amLODIPine BESYLATE 5 MG TAB PO SCH (09:31)
[2019-11-17 10:15] LABS: Basophils # (auto) 0.1 10 ^3/uL (0-0.2); Basophils % (auto) 0.6 % (0.0-2.0); Eosinophils # (auto) 0.5 10 ^3/uL (0-0.8); Eosinophils % (auto) 4.3 % (0.0-7.0); Hematocrit 27.7 % (41.0-53.0); Hemoglobin 9.1 g/dL (13.5-17.5); Lymphocytes # (auto) 1.2 10 ^3/uL (0.4-5.4); Lymphocytes % (auto) 10.5 % (10.0-50.0); Mean Corpuscular Hemoglobin 29.8 pg (28.0-32.0); Mean Corpuscular Hgb Conc. 32.9 g/dL (32.0-36.0); Mean Corpuscular Volume 90.8 fL (80.0-100.0); Monocytes # (auto) 1.3 10 ^3/uL (0-1.3); Monocytes % (auto) 11.3 % (0.0-12.0); Neutrophils # (auto) 8.2 10 ^3/uL (1.6-8.6); Neutrophils % (auto) 73.3 % (37.0-80.0); Nucleated Red Blood Cells % 0.1 %; Platelet Count (auto) 144 10^3/uL (140-450); Red Blood Cells 3.05 10^6/uL (4.5-5.90); Red Cell Distribution Width 14.1 % (11.8-14.3); White Blood Cell 11.3 10^3/uL (4.4-10.8)
[2019-11-17] MEDS: NOREPINEPHRINE 8 MG/250ML KIT 250 ML IV SCH (10:23)
[2019-11-17 10:32] LABS: BUN/Creatinine Ratio 21.9; Calcium 7.6 mg/dL (8.5-10.1); Potassium 4.2 mmol/L (3.5-5.1)
[2019-11-17] MEDS: LINEZOLID 600MG/300ML 300 ML IV SCH ×2 (11:42)
[2019-11-17 13:00] VITALS: BP 120/71
[2019-11-17 17:00] VITALS: BP 140/69
[2019-11-17] MEDS: TAMSULOSIN HYDROCHLORIDE 0.4 MG CAP PO SCH (18:00)
--- NOTE | 2019-11-17 19:32 | NUR ---
Opening Shift Note Assumed care of patient after receiving report from JOSH Garland. Patent awake and alert, out of bed at this time on BSC. No S/S of distress/SOB or pain. Call light within reach. Instructed on POC and to call for assist PRN, will continue to monitor for changes Q1hr and PRN.
--- NOTE | 2019-11-17 20:50 | NUR ---
Spoke with family Patients Mitch sotelo, called for update on patients condition. Password verified. Family was updated on plan of care and all questions were addressed. Addendum: 11/18/19 at 0128 by Kaylan De La Cruz RN Mitch Sotelo, stated patients daughter cares for him metal bumper at home.
[2019-11-17 22:00] VITALS: BP 145/79
[2019-11-17] MEDS: PRAVASTATIN SODIUM 20 MG TAB PO SCH (22:01)
[2019-11-18] MEDS: guaiFENesin 200 MG/10 ML UD PO SCH ×4 (00:03→18:00)
[2019-11-18] MEDS: LINEZOLID 600MG/300ML 300 ML IV SCH (00:04)
[2019-11-18] MEDS: ACETYLCYSTEINE 10 %(100MG/ML) SOL 4ML NEB SCH ×4 (00:14→18:33)
[2019-11-18] MEDS: ALBUTEROL SULF 2.5 MG/0.5ML(0.5%) NEB SOLN NEB PRN (00:14)
[2019-11-18 05:03] VITALS: BP 123/66
[2019-11-18] MEDS: ACCU-CHEK COMFORT CURVE STRIP VI SCH ×4 (06:16→22:00)
[2019-11-18] MEDS: InsuLIN REG 1unit/0.01ml Soln (100units/ml) SC SCH ×4 (06:19→22:52)
[2019-11-18] MEDS: ALBUTEROL SULF 2.5 MG/0.5ML(0.5%) NEB SOLN NEB SCH ×3 (07:00→18:33)
[2019-11-18] MEDS: IPRATROPIUM BROM 0.5 MG/2.5ML INH SOL NEB SCH ×3 (07:00→18:33)
[2019-11-18 09:00] VITALS: BP 129/74
[2019-11-18] MEDS: Glucerna Carbsteady SHAKE Vanilla 8oz PO SCH ×3 (09:35→18:00)
[2019-11-18] MEDS: SODIUM CHLOR 0.9% PF (SALINE LOCK) 10ML VIAL/SYR IV SCH ×2 (10:29→22:41)
[2019-11-18] MEDS: ASPirin 81 mg TAB PO SCH (11:14)
[2019-11-18] MEDS: MEROPENEM 1GM IVPB 100 ML IV SCH (11:14)
[2019-11-18] MEDS: CLOPIDOGREL BISULFATE 75 MG TAB PO SCH (11:15)
[2019-11-18] MEDS: amLODIPine BESYLATE 5 MG TAB PO SCH (11:15)
[2019-11-18] MEDS: PANTOPRAZOLE 40 MG/10 ML VIAL INJ IV SCH (11:16)
--- NOTE | 2019-11-18 11:17 | NUR ---
NOTIFIED DR PATEL THE VQ SCAN SHOWS HIGH PROBABILITY FOR PULMONARY EMBOLISM.
[2019-11-18] MEDS: CARVEDILOL 3.125 MG TAB PO SCH ×2 (11:18→22:49)
--- NOTE | 2019-11-18 11:36 | NUR ---
Hold PT today due to VQ scan showing high probability of PE.
[2019-11-18 12:15] LABS: Basophils # (auto) 0.1 10 ^3/uL (0-0.2); Basophils % (auto) 0.5 % (0.0-2.0); Eosinophils # (auto) 0.5 10 ^3/uL (0-0.8); Eosinophils % (auto) 4.3 % (0.0-7.0); Hematocrit 31.4 % (41.0-53.0); Lymphocytes % (auto) 8.5 % (10.0-50.0); Mean Corpuscular Hemoglobin 30.3 pg (28.0-32.0); Mean Corpuscular Hgb Conc. 31.7 g/dL (32.0-36.0); Mean Corpuscular Volume 95.7 fL (80.0-100.0); Monocytes # (auto) 0.9 10 ^3/uL (0-1.3); Neutrophils % (auto) 78.7 % (37.0-80.0); Platelet Count (auto) 157 10^3/uL (140-450); Red Blood Cells 3.28 10^6/uL (4.5-5.90); Red Cell Distribution Width 14.6 % (11.8-14.3); White Blood Cell 11.4 10^3/uL (4.4-10.8)
[2019-11-18 12:31] LABS: Albumin 2.1 g/dL (3.4-5.0); BUN/Creatinine Ratio 18.4; Calcium 7.5 mg/dL (8.5-10.1); Potassium 4.4 mmol/L (3.5-5.1)
[2019-11-18 12:34] LABS: Bilirubin, Total 0.4 mg/dL (0.2-1.0); Total Protein 6.7 g/dL (6.4-8.2)
[2019-11-18] MEDS ORDERED: HEPARIN DRIP/D5W 100UNITS/ML 250 ML IV SCH (12:47)
[2019-11-18 13:00] VITALS: BP 137/69
[2019-11-18 13:00] LABS: Protein, Urine 220.3 mg/dL (0.0-11.9)
[2019-11-18 13:17] LABS: INR 1.08 (0.9-1.15); Partial Thromboplastin Time 39.3 sec (23.64-32.05)
[2019-11-18] MEDS: SODIUM CHLORIDE 0.9% 1,000 ML IV SCH (13:47)
[2019-11-18] MEDS: BUMETANIDE 2.5mg/10ml (0.25 mg/ml) INJ IV SCH (14:18)
[2019-11-18] MEDS: HEPARIN DRIP/D5W 100UNITS/ML 250 ML IV SCH (14:57)
--- NOTE | 2019-11-18 15:15 | NUR ---
Nutrition Followup Notes Wt: 104.3 kg Pt was sleeping when rounding, per H/P pt is post syncope. Pt po 50% per RN doc of one meal recorded today Est Energy needs ABW 89 k-2225kcals (23-25 kcal/kgBW), Est Protein needs: 71-89 gms/day (0.8-1.0 gm/kgBW r/t Elev RFT). will reassess prn LABS: 11/13 Alb 2.6L 11/16 BUN 82H, Creat 3.74H, Ca 7.6L, Gluc 181H GI: 1 BM 11/17 BS: 20 low risk PES: Altered nutrition related lab values r/t current chronic medical condition aeb mod hypoab elev RFT A1C, hyperglcyemia Decreased nutrient needs r/t adiposity aeb pt`s high BMI of 35.1 kgm2 Comments 1) Continue to monitor po intake, labs, and skin status 2) refer to CDE on DC 3) continue current plan of care Expected Outcomes/Goals: pt will maintain wt while in hospital pt will consume >75% of po intake pt will have improved labs F/u mod 3-5 days
[2019-11-18 16:06] VITALS: BP 137/69
[2019-11-18 17:00] VITALS: BP 122/47
[2019-11-18] MEDS: TAMSULOSIN HYDROCHLORIDE 0.4 MG CAP PO SCH (18:00)
--- NOTE | 2019-11-18 18:35 | NUR ---
RT NOTE PT WAS SEEN BY RT FOR HHN TX. PT TOLERATES WELL VIA MASK. NO ADVERSE REACTION NOTED. PT HAS A PRODUCTIVE COUGH NOTED. CONT ORDERED Addendum: 11/18/19 at 1837 by Stefanie Weller RT Amended: Links added.
[2019-11-18 22:00] VITALS: BP 128/65
[2019-11-18] MEDS: PRAVASTATIN SODIUM 20 MG TAB PO SCH (22:49)
[2019-11-18 23:29] LABS: INR 1.37 (0.9-1.15)
[2019-11-18 23:30] LABS: Partial Thromboplastin Time > 139.0 sec (23.64-32.05)
--- NOTE | 2019-11-18 23:36 | NUR ---
Heparin drip, lab redraw Lab gurmeet blood for a second time due to PTT lab value 'being unable to read". Second reading unable to read per lab, recorded at >139. Per heparin drip protocol, drip was stopped, will hold for one hour and decrease by 3 ml. Will continue to monitor.
--- NOTE | 2019-11-18 23:41 | NUR ---
Opening Shift Note Assumed care of patient after receiving report from JOSH Reno. Patient awake and alert resting comfortably in bed with no S/S of distress/SOB or pain. Call light within reach, bed in lowest position x2 side rails. Patient instructed on POC and to call for assist PRN, will continue to monitor for changes Q1hr and PRN. Addendum: 11/19/19 at 0052 by Kaylan De La Cruz RN opening shift note was at 1930
--- NOTE | 2019-11-19 00:37 | NUR ---
Heparin drip Heparin drip restarted and decreased by 3 ml/hr, now running at 16 ml/hr (1600 units/hr) per heparin drip protocol.
[2019-11-19] MEDS: guaiFENesin 200 MG/10 ML UD PO SCH ×4 (00:44→18:00)
[2019-11-19] MEDS: ALBUTEROL SULF 2.5 MG/0.5ML(0.5%) NEB SOLN NEB PRN (01:04)
[2019-11-19] MEDS: IPRATROPIUM BROM 0.5 MG/2.5ML INH SOL NEB PRN (01:04)
[2019-11-19] MEDS: ACETYLCYSTEINE 10 %(100MG/ML) SOL 4ML NEB SCH ×4 (01:04→19:13)
--- NOTE | 2019-11-19 01:05 | NUR ---
RT NOTE PT WAS SEEN BY RT FOR HHN TX. PT TOLERATES WELL VIA MASK. NO ADVERSE REACTION NOTED. CONT ORDERED Addendum: 11/19/19 at 0108 by Stefanie Weller RT Amended: Links added.
[2019-11-19] MEDS: SODIUM CHLORIDE 0.9% 1,000 ML IV SCH ×2 (01:30→16:03)
[2019-11-19] MEDS: HEPARIN DRIP/D5W 100UNITS/ML 250 ML IV SCH ×2 (03:10→16:20)
--- NOTE | 2019-11-19 03:20 | NUR ---
Scheduled administration of heparin bag not administered at this time, bag not empty. Will administer new bag at end of remaining heparin.
[2019-11-19 04:40] LABS: INR 1.23 (0.9-1.15)
[2019-11-19 04:41] LABS: Partial Thromboplastin Time > 139.0 sec (23.64-32.05)
[2019-11-19 05:00] VITALS: BP 105/39
--- NOTE | 2019-11-19 05:06 | NUR ---
Spoke with pharmacy Per heparin drip protocol, last PTT >139, holding heparin drip and titrating down by 3 ml/hr. Spoke with pharmacy regarding dose rate. Will continue to monitor.
--- NOTE | 2019-11-19 06:10 | NUR ---
Heparin drip now running at 13 ml/hr per heparin drip protocol.
[2019-11-19] MEDS: ACCU-CHEK COMFORT CURVE STRIP VI SCH ×4 (06:55→22:00)
[2019-11-19 06:59] LABS: Albumin 1.6 g/dL (3.4-5.0); Potassium 3.7 mmol/L (3.5-5.1)
[2019-11-19] MEDS: InsuLIN REG 1unit/0.01ml Soln (100units/ml) SC SCH ×4 (07:00→22:00)
[2019-11-19 07:03] LABS: BUN/Creatinine Ratio 21.7; Bilirubin, Total 0.3 mg/dL (0.2-1.0); Calcium 6.1 mg/dL (8.5-10.1); Phosphorus 4.3 mg/dL (2.5-4.90); Total Protein 5.3 g/dL (6.4-8.2); Uric Acid 10.5 mg/dL (3.5-7.2)
[2019-11-19] MEDS: IPRATROPIUM BROM 0.5 MG/2.5ML INH SOL NEB SCH ×3 (07:06→19:13)
[2019-11-19] MEDS: ALBUTEROL SULF 2.5 MG/0.5ML(0.5%) NEB SOLN NEB SCH ×3 (07:06→19:13)
[2019-11-19 08:27] VITALS: BP 133/68
[2019-11-19 08:29] LABS: INR 1.08 (0.9-1.15); Partial Thromboplastin Time 60.6 sec (23.64-32.05)
[2019-11-19] MEDS: SODIUM CHLOR 0.9% PF (SALINE LOCK) 10ML VIAL/SYR IV SCH ×2 (09:46→22:00)
[2019-11-19] MEDS: Glucerna Carbsteady SHAKE Vanilla 8oz PO SCH ×3 (09:46→18:06)
[2019-11-19] MEDS: BUMETANIDE 2.5mg/10ml (0.25 mg/ml) INJ IV SCH (10:45)
[2019-11-19] MEDS: PANTOPRAZOLE 40 MG/10 ML VIAL INJ IV SCH (10:45)
[2019-11-19] MEDS: ASPirin 81 mg TAB PO SCH (10:46)
[2019-11-19] MEDS: CLOPIDOGREL BISULFATE 75 MG TAB PO SCH (10:46)
[2019-11-19] MEDS: CARVEDILOL 3.125 MG TAB PO SCH ×2 (10:46→23:24)
[2019-11-19] MEDS: DOXYCYCLINE 100 MG TAB/CAP PO SCH ×2 (10:46→23:23)
[2019-11-19] MEDS: amLODIPine BESYLATE 5 MG TAB PO SCH (10:47)
--- NOTE | 2019-11-19 12:00 | NUR ---
PT eval orders received. VQ scan showed intermediate to high probability of pulmonary embolism. Pt has been started on heparin drip but INR is downtrending. 1.23 at 03:30 11/19/19 and 1.08 08:00 11/19/19. Pt is not safe to mobilize with INR outside of the therapeutic range. Will attempt again later.
[2019-11-19 13:18] LABS: LDL Cholesterol 30 mg/dL (< 100)
[2019-11-19 13:21] LABS: Cholesterol 54 mg/dL (< 200)
[2019-11-19 13:22] LABS: HDL Cholesterol 19 mg/dL (40-59); Triglycerides 104 mg/dL (< 150)
[2019-11-19 13:36] VITALS: BP 128/69
--- NOTE | 2019-11-19 13:59 | NUR ---
PTT 60.6 NO CHANGE IN HEPARIN.
[2019-11-19 14:36] LABS: INR 1.08 (0.9-1.15)
[2019-11-19 14:41] LABS: Partial Thromboplastin Time 96.8 sec (23.64-32.05)
--- NOTE | 2019-11-19 14:44 | NUR ---
LAB CALLED WITH CRITICAL PTT 96.8 INFUSION HELD FOR 1 HOUR.
[2019-11-19 16:54] VITALS: BP 133/68
[2019-11-19] MEDS: TAMSULOSIN HYDROCHLORIDE 0.4 MG CAP PO SCH (18:18)
--- NOTE | 2019-11-19 19:30 | NUR ---
Opening Shift Note Report received from JOSH Reno. Per report, patient on heparin drip running at 10cc/hr. Assumed care of patient, awake and alert. No S/S of distress/SOB or pain. Instructed on POC and to call for assist PRN, will continue to monitor for changes Q1hr and PRN.
--- NOTE | 2019-11-19 20:30 | NUR ---
APtt resulted at 55.8. Per heparin drip protocol, no change and no bolus, rate stay at 10cc/hr. Care continued.
[2019-11-19 20:40] LABS: INR 1.06 (0.9-1.15); Partial Thromboplastin Time 55.8 sec (23.64-32.05)
[2019-11-19 22:00] VITALS: BP 147/61
[2019-11-19] MEDS: PRAVASTATIN SODIUM 20 MG TAB PO SCH (23:23)
[2019-11-20] VITALS (7 sets, daily range): BP systolic 101–136; BP diastolic 56–90
--- NOTE | 2019-11-20 02:30 | NUR ---
APtt resulted at 65.9. Per heparin drip protocol, no change and no bolus, rate stay at 10cc/hr. Care continued.
[2019-11-20] MEDS: SODIUM CHLORIDE 0.9% 1,000 ML IV SCH ×2 (02:38→15:00)
[2019-11-20] MEDS: HEPARIN DRIP/D5W 100UNITS/ML 250 ML IV SCH (05:30)
[2019-11-20 05:46] LABS: Basophils # (auto) 0 10 ^3/uL (0-0.2); Basophils % (auto) 0.4 % (0.0-2.0); Eosinophils # (auto) 0.5 10 ^3/uL (0-0.8); Eosinophils % (auto) 5.1 % (0.0-7.0); Hematocrit 26.3 % (41.0-53.0); Hemoglobin 8.8 g/dL (13.5-17.5); Lymphocytes # (auto) 1.7 10 ^3/uL (0.4-5.4); Lymphocytes % (auto) 17.2 % (10.0-50.0); Mean Corpuscular Hemoglobin 30.4 pg (28.0-32.0); Mean Corpuscular Hgb Conc. 33.6 g/dL (32.0-36.0); Mean Corpuscular Volume 90.5 fL (80.0-100.0); Monocytes % (auto) 10.2 % (0.0-12.0); Neutrophils # (auto) 6.7 10 ^3/uL (1.6-8.6); Neutrophils % (auto) 67.1 % (37.0-80.0); Platelet Count (auto) 169 10^3/uL (140-450); Red Cell Distribution Width 13.9 % (11.8-14.3)
[2019-11-20 06:06] LABS: BUN/Creatinine Ratio 22.4; Calcium 7.7 mg/dL (8.5-10.1); Potassium 4.6 mmol/L (3.5-5.1)
[2019-11-20 06:08] LABS: Bilirubin, Total 0.4 mg/dL (0.2-1.0); Total Protein 6.4 g/dL (6.4-8.2)
[2019-11-20] MEDS: IPRATROPIUM BROM 0.5 MG/2.5ML INH SOL NEB SCH ×3 (06:26→18:50)
[2019-11-20] MEDS: ALBUTEROL SULF 2.5 MG/0.5ML(0.5%) NEB SOLN NEB SCH ×3 (06:26→18:50)
[2019-11-20] MEDS: ACETYLCYSTEINE 10 %(100MG/ML) SOL 4ML NEB SCH ×3 (06:27→18:53)
[2019-11-20] MEDS: guaiFENesin 200 MG/10 ML UD PO SCH ×3 (06:43→11:45)
[2019-11-20] MEDS: ACCU-CHEK COMFORT CURVE STRIP VI SCH ×4 (06:47→21:40)
[2019-11-20] MEDS: InsuLIN REG 1unit/0.01ml Soln (100units/ml) SC SCH ×4 (06:51→21:57)
[2019-11-20] MEDS: Glucerna Carbsteady SHAKE Vanilla 8oz PO SCH ×3 (08:00→17:36)
[2019-11-20] MEDS: ASPirin 81 mg TAB PO SCH (10:00)
[2019-11-20] MEDS: DOXYCYCLINE 100 MG TAB/CAP PO SCH ×2 (10:00→21:39)
[2019-11-20] MEDS: CLOPIDOGREL BISULFATE 75 MG TAB PO SCH (10:00)
[2019-11-20] MEDS: BUMETANIDE 2.5mg/10ml (0.25 mg/ml) INJ IV SCH (10:00)
[2019-11-20] MEDS: CARVEDILOL 3.125 MG TAB PO SCH ×2 (10:00→21:39)
[2019-11-20] MEDS: PANTOPRAZOLE 40 MG/10 ML VIAL INJ IV SCH (10:00)
[2019-11-20] MEDS: amLODIPine BESYLATE 5 MG TAB PO SCH (10:01)
[2019-11-20] MEDS: SODIUM CHLOR 0.9% PF (SALINE LOCK) 10ML VIAL/SYR IV SCH ×2 (10:07→21:40)
--- NOTE | 2019-11-20 13:43 | NUR ---
AMANDA ROUNDING PATIENT TO HAVE PT TODAY AND DAILY. ALSO SPOKE TO HER REGARDING PHARMACY RECOMMENDATION OF ELIQUIS 5 MG BID INSTEAD OF 2.5 BID . PER AMANDA CHANGE ELIQUIS TO 5 MG BID STARTING TONIGHT. SHE WILL TALK TO CARIOLOGY ON FRIDAY.
--- NOTE | 2019-11-20 13:45 | NUR ---
CALLED PHARMACY AND NOTIFIED OF CHANGE PER THEIR REQUEST.
[2019-11-20] MEDS: TAMSULOSIN HYDROCHLORIDE 0.4 MG CAP PO SCH (17:05)
--- NOTE | 2019-11-20 19:39 | NUR ---
RECEIVED PT FROM DAY RN POC REVIEWED
[2019-11-20] MEDS: APIXABAN 5 MG TAB PO SCH (21:39)
[2019-11-20] MEDS: PRAVASTATIN SODIUM 20 MG TAB PO SCH (21:40)
[2019-11-20] MEDS: AMOXICILLIN/CLAVULAN 500 MG TAB PO SCH (21:41)
--- NOTE | 2019-11-20 22:17 | NUR ---
RESTING COMFORTABLE WITH HOB UP RESP EVEN AND UNLABORED, DENIES PAIN OR DISCOMFORT, BED ALARM MEDICAL UNIT SECRETARY LIGHT WITHIN REACH
[2019-11-21] VITALS (7 sets, daily range): BP systolic 122–131; BP diastolic 53–69
--- NOTE | 2019-11-21 01:26 | NUR ---
resting with eyes closed resp even and unlabored, call light within reach, bed alarm intact
[2019-11-21] MEDS: SODIUM CHLORIDE 0.9% 1,000 ML IV SCH ×2 (03:31→16:06)
--- NOTE | 2019-11-21 04:30 | NUR ---
c/o general pain 12/14 medicated as ordered
[2019-11-21] MEDS: ACETAMINOPHEN 500 MG TAB PO PRN ×2 (04:56→22:38)
[2019-11-21] MEDS: ACCU-CHEK COMFORT CURVE STRIP VI SCH ×4 (05:55→22:52)
[2019-11-21] MEDS: InsuLIN REG 1unit/0.01ml Soln (100units/ml) SC SCH ×4 (06:09→22:00)
[2019-11-21 06:25] LABS: Hematocrit 26.2 % (41.0-53.0); Hemoglobin 8.7 g/dL (13.5-17.5); Mean Corpuscular Hemoglobin 30.2 pg (28.0-32.0); Mean Corpuscular Hgb Conc. 33.1 g/dL (32.0-36.0); Mean Corpuscular Volume 91.4 fL (80.0-100.0); Platelet Count (auto) 170 10^3/uL (140-450); Red Blood Cells 2.87 10^6/uL (4.5-5.90); Red Cell Distribution Width 14.2 % (11.8-14.3); White Blood Cell 9.3 10^3/uL (4.4-10.8)
[2019-11-21 06:34] LABS: Basophils % (manual) 0 (0.0-2.0); Blast Cells 0; Metamyelocytes % 0; Myelocytes % 0; Promyelocytes % 0; Reactive Lymphocytes 0
[2019-11-21] MEDS: ALBUTEROL SULF 2.5 MG/0.5ML(0.5%) NEB SOLN NEB SCH ×3 (06:36→18:57)
[2019-11-21] MEDS: IPRATROPIUM BROM 0.5 MG/2.5ML INH SOL NEB SCH ×3 (06:36→18:57)
[2019-11-21] MEDS: ACETYLCYSTEINE 10 %(100MG/ML) SOL 4ML NEB SCH ×3 (06:37→18:57)
[2019-11-21 06:38] LABS: INR 1.13 (0.9-1.15); Partial Thromboplastin Time 41.6 sec (23.64-32.05)
[2019-11-21 06:43] LABS: Albumin 2.1 g/dL (3.4-5.0); Calcium 7.8 mg/dL (8.5-10.1); Potassium 4.7 mmol/L (3.5-5.1)
[2019-11-21 06:48] LABS: BUN/Creatinine Ratio 24.2; Bilirubin, Total 0.5 mg/dL (0.2-1.0); Total Protein 6.8 g/dL (6.4-8.2)
--- NOTE | 2019-11-21 06:56 | NUR ---
report given to am nurse poc reviewed
[2019-11-21] MEDS: AMOXICILLIN/CLAVULAN 500 MG TAB PO SCH ×3 (06:59→22:29)
[2019-11-21] MEDS: Glucerna Carbsteady SHAKE Vanilla 8oz PO SCH ×3 (07:25→16:55)
[2019-11-21 07:39] LABS: Band Neutrophils % (manual) 2; Eosinophils % (manual) 3 (0-7); Lymphocytes % (manual) 13 (10.0-50.0); Monocytes % (manual) 6 (0-12)
--- NOTE | 2019-11-21 07:54 | NUR ---
Opening Shift Note Assumed care of patient, awake and alert. No S/S of distress/SOB or pain. Instructed on POC and to call for assist PRN, will continue to monitor for changes Q1hr and PRN. Bed locked in lowest position with two side rails up and call light in reach.
[2019-11-21] MEDS: SODIUM CHLOR 0.9% PF (SALINE LOCK) 10ML VIAL/SYR IV SCH ×2 (10:00→22:50)
[2019-11-21] MEDS: BUMETANIDE 2.5mg/10ml (0.25 mg/ml) INJ IV SCH (10:33)
[2019-11-21] MEDS: PANTOPRAZOLE 40 MG/10 ML VIAL INJ IV SCH (10:33)
[2019-11-21] MEDS: DOXYCYCLINE 100 MG TAB/CAP PO SCH ×2 (10:34→22:29)
[2019-11-21] MEDS: CLOPIDOGREL BISULFATE 75 MG TAB PO SCH (10:34)
[2019-11-21] MEDS: ASPirin 81 mg TAB PO SCH (10:34)
[2019-11-21] MEDS: APIXABAN 5 MG TAB PO SCH ×2 (10:34→22:29)
[2019-11-21] MEDS: CARVEDILOL 3.125 MG TAB PO SCH ×2 (10:35→22:31)
[2019-11-21] MEDS: amLODIPine BESYLATE 5 MG TAB PO SCH (10:36)
--- NOTE | 2019-11-21 12:00 | NUR ---
Nutrition Followup Notes Wt: 105.5 kg Pt was sleeping when rounding, per H/P pt is post syncope. Pt po intake good aeb 85% po 11/19 per RN doc. Est Energy needs ABW 89 k-2225kcals (23-25 kcal/kgBW), Est Protein needs: 71-89 gms/day (0.8-1.0 gm/kgBW r/t Elev RFT). will reassess prn LABS: BUN 64H, Creat 2.64L, Gluc 229H, Alb 2.1L, Ca 7.8L GI: 2 BM 11/19 per RN doc BS: 20 low risk, incision right groin PES: Altered nutrition related lab values r/t current chronic medical condition aeb mod hypoab elev RFT A1C, hyperglcyemia Decreased nutrient needs r/t adiposity aeb pt`s high BMI of 35.1 kgm2 Comments 1) Continue to monitor po intake, labs, and skin status 2) refer to CDE on DC 3) continue current plan of care Expected Outcomes/Goals: pt will maintain wt while in hospital pt will consume >75% of po intake pt will have improved labs F/u mod 3-5 days
[2019-11-21] MEDS: TAMSULOSIN HYDROCHLORIDE 0.4 MG CAP PO SCH (16:54)
--- NOTE | 2019-11-21 19:25 | NUR ---
received pt from day rn poc reviewed
[2019-11-21] MEDS: PRAVASTATIN SODIUM 20 MG TAB PO SCH (22:29)
--- NOTE | 2019-11-22 02:08 | NUR ---
resting with eyes closed resp even and unlabored, call light within reach bed alarm intact
[2019-11-22 05:00] VITALS: BP 112/67
[2019-11-22] MEDS: AMOXICILLIN/CLAVULAN 500 MG TAB PO SCH ×3 (06:01→22:57)
[2019-11-22] MEDS: InsuLIN REG 1unit/0.01ml Soln (100units/ml) SC SCH ×4 (06:04→23:15)
[2019-11-22] MEDS: ACCU-CHEK COMFORT CURVE STRIP VI SCH ×4 (06:05→22:55)
[2019-11-22] MEDS: SODIUM CHLORIDE 0.9% 1,000 ML IV SCH ×2 (06:05→17:00)
[2019-11-22] MEDS: ACETYLCYSTEINE 10 %(100MG/ML) SOL 4ML NEB SCH ×3 (06:36→18:25)
[2019-11-22] MEDS: ALBUTEROL SULF 2.5 MG/0.5ML(0.5%) NEB SOLN NEB SCH ×3 (06:36→18:25)
[2019-11-22] MEDS: IPRATROPIUM BROM 0.5 MG/2.5ML INH SOL NEB SCH ×3 (06:36→18:25)
--- NOTE | 2019-11-22 06:58 | NUR ---
report given to am nurse poc reviewed
[2019-11-22 07:15] LABS: Potassium 4.6 mmol/L (3.5-5.1)
--- NOTE | 2019-11-22 07:20 | NUR ---
OPENING NOTE ASSUMED CARE OF PT. PT ALERT AND ORIENTED. NO S/S OF SOB/DISTRESS NOTED. BED SET TO LOWEST POSITION/LOCKED, BEDSIDE RAILS UP X2, CALL LIGHT WITHIN REACH, BED ALARM ON. INSTRUCTED PATIENT TO CALL FOR ASSISTANCE. UPDATED ON POC. PT VERBALIZED UNDERSTANDING. WILL CONTINUE TO MONITOR Q1HR AND PRN.
[2019-11-22 07:26] LABS: Albumin 2.1 g/dL (3.4-5.0); BUN/Creatinine Ratio 21.7; Bilirubin, Total 0.8 mg/dL (0.2-1.0); Total Protein 6.8 g/dL (6.4-8.2)
[2019-11-22] MEDS: Glucerna Carbsteady SHAKE Vanilla 8oz PO SCH ×2 (08:00→12:01)
[2019-11-22 08:28] VITALS: BP 132/71
[2019-11-22] MEDS: ASPirin 81 mg TAB PO SCH (09:46)
[2019-11-22] MEDS: CLOPIDOGREL BISULFATE 75 MG TAB PO SCH (09:46)
[2019-11-22] MEDS: DOXYCYCLINE 100 MG TAB/CAP PO SCH ×2 (09:46→22:53)
[2019-11-22] MEDS: APIXABAN 5 MG TAB PO SCH ×2 (09:46→22:53)
[2019-11-22] MEDS: PANTOPRAZOLE 40 MG/10 ML VIAL INJ IV SCH (09:47)
[2019-11-22] MEDS: amLODIPine BESYLATE 5 MG TAB PO SCH (09:47)
[2019-11-22] MEDS: CARVEDILOL 3.125 MG TAB PO SCH ×2 (09:47→22:54)
[2019-11-22] MEDS: BUMETANIDE 2.5mg/10ml (0.25 mg/ml) INJ IV SCH (09:48)
[2019-11-22] MEDS: SODIUM CHLOR 0.9% PF (SALINE LOCK) 10ML VIAL/SYR IV SCH ×2 (09:52→22:53)
--- NOTE | 2019-11-22 11:51 | NUR ---
Respiratory note: PATIENT SEEN FOR 1200 MED-NEB TX AT THIS TIME AND WAS FOUND ON ROOM AIR WITH SPO2 OF 87%. PATIENT EDUCATED ON NEED FOR KEEPING NASAL CANNULA IN. HE AGREED. MED-NEB ADMINISTERED.
--- NOTE | 2019-11-22 11:54 | NUR ---
Dasilva catheter dc'd Order to discontinue Dasilva catheter. Dasilva dc'd with clean technique following deflation of balloon. 2100 ml output. Patient tolerated well with no complaints of pain. Continue care.
[2019-11-22 12:56] VITALS: BP 140/76
[2019-11-22 17:00] VITALS: BP 125/66
[2019-11-22] MEDS: TAMSULOSIN HYDROCHLORIDE 0.4 MG CAP PO SCH (17:45)
--- NOTE | 2019-11-22 19:45 | NUR ---
Opening Shift Note Assumed care of patient, awake and alert, oriented x 4, follows direction, clear speech. On oxygen at 3l via NC with even and unlabored respirations. No S/S of distress/SOB. Patient denies pain. Patient turns independently in bed. Bed in lowest locked position with side rails up x 2 and call light within reach, bed alarm on. Instructed on POC and to call for assist PRN, will continue to monitor for changes Q1hr and PRN.
[2019-11-22 22:00] VITALS: BP 152/62
[2019-11-22] MEDS: PRAVASTATIN SODIUM 20 MG TAB PO SCH (22:53)
[2019-11-23] MEDS: Glucerna Carbsteady SHAKE Vanilla 8oz PO SCH ×3 (01:57→12:10)
[2019-11-23 05:00] VITALS: BP 113/63
[2019-11-23] MEDS: SODIUM CHLORIDE 0.9% 1,000 ML IV SCH (05:43)
[2019-11-23] MEDS: IPRATROPIUM BROM 0.5 MG/2.5ML INH SOL NEB SCH ×2 (05:44→11:31)
[2019-11-23] MEDS: ALBUTEROL SULF 2.5 MG/0.5ML(0.5%) NEB SOLN NEB SCH ×2 (05:44→11:31)
[2019-11-23] MEDS: ACETYLCYSTEINE 10 %(100MG/ML) SOL 4ML NEB SCH ×2 (05:47→11:32)
[2019-11-23] MEDS: ACCU-CHEK COMFORT CURVE STRIP VI SCH ×3 (06:07→16:40)
[2019-11-23] MEDS: InsuLIN REG 1unit/0.01ml Soln (100units/ml) SC SCH ×3 (06:12→16:40)
[2019-11-23] MEDS: AMOXICILLIN/CLAVULAN 500 MG TAB PO SCH ×2 (06:20→14:00)
[2019-11-23 06:22] LABS: Hematocrit 26.6 % (41.0-53.0); Mean Corpuscular Hemoglobin 30.7 pg (28.0-32.0); Mean Corpuscular Hgb Conc. 33.8 g/dL (32.0-36.0); Mean Corpuscular Volume 90.9 fL (80.0-100.0); Platelet Count (auto) 222 10^3/uL (140-450); Red Blood Cells 2.93 10^6/uL (4.5-5.90); Red Cell Distribution Width 13.8 % (11.8-14.3); White Blood Cell 10.5 10^3/uL (4.4-10.8)
[2019-11-23 06:38] LABS: Potassium 4.8 mmol/L (3.5-5.1)
[2019-11-23 06:39] LABS: Band Neutrophils % (manual) 0; Blast Cells 0; Myelocytes % 0; Promyelocytes % 0; Reactive Lymphocytes 0
[2019-11-23 06:52] LABS: BUN/Creatinine Ratio 18.5; Calcium 8.3 mg/dL (8.5-10.1)
--- NOTE | 2019-11-23 06:55 | NUR ---
Closing Note patient resting in bed with oxygen on at 2L via NC with even and unlabored respirations, no s/s of distress. Bed in lowest locked position with side rails up x 2 and call light within reach, bed alarm on.
[2019-11-23 07:28] LABS: Basophils % (manual) 1 (0.0-2.0); Eosinophils % (manual) 3 (0-7); Lymphocytes % (manual) 18 (10.0-50.0); Metamyelocytes % 1; Monocytes % (manual) 6 (0-12)
[2019-11-23 08:14] VITALS: BP 137/70
[2019-11-23] MEDS: PANTOPRAZOLE 40 MG/10 ML VIAL INJ IV SCH (09:13)
[2019-11-23] MEDS: CARVEDILOL 3.125 MG TAB PO SCH (09:14)
[2019-11-23] MEDS: BUMETANIDE 2.5mg/10ml (0.25 mg/ml) INJ IV SCH (09:14)
[2019-11-23] MEDS: amLODIPine BESYLATE 5 MG TAB PO SCH (09:15)
[2019-11-23] MEDS: DOXYCYCLINE 100 MG TAB/CAP PO SCH (09:15)
[2019-11-23] MEDS: APIXABAN 5 MG TAB PO SCH (09:15)
[2019-11-23] MEDS: SODIUM CHLOR 0.9% PF (SALINE LOCK) 10ML VIAL/SYR IV SCH (09:15)
[2019-11-23] MEDS: ASPirin 81 mg TAB PO SCH (09:15)
[2019-11-23] MEDS: CLOPIDOGREL BISULFATE 75 MG TAB PO SCH (09:15)
[2019-11-23 12:41] VITALS: BP 122/62
--- NOTE | 2019-11-23 14:29 | NUR ---
SPOKE TO DAUGHTER, PER DAUGHTER PATIENT HAS HOME OXYGEN. DAUGHTER STATED "THE DAY HE GOT ADMITTED THEY DROPPED OFF THE HOME OXYGEN." WILL INFORM MD.
[2019-11-23] MEDS ORDERED: CLOP75TA28 PO (14:57)
[2019-11-23] MEDS ORDERED: APIX5TAB PO (14:57)
[2019-11-23] MEDS ORDERED: ASPI81CH43 PO (14:57)
[2019-11-23] MEDS ORDERED: DOX100T PO (15:00)
[2019-11-23] MEDS ORDERED: PANT40TA2 PO (15:00)
[2019-11-23] MEDS ORDERED: AMOX500T92 PO (15:00)
[2019-11-23 15:17] VITALS: BP 122/62
--- NOTE | 2019-11-23 15:58 | NUR ---
D/C planning Per SS consult for home health physical therapy and home O2. Patient is on service with [facility] and would like to resume service with agency. Faxed clinical information to agency. per Theresa with [facility] ) they will resume service for patient within 24-48hrs upon d/c day. Regarding home O2 Dr. Recinos informed me per RN Abbie family inform her patient received home O2 oxygen as an outpatient and order will be cancel.
--- NOTE | 2019-11-23 16:14 | NUR ---
Discharge Discharge instructions given as ordered. Encourage to follow up with Dr. Humphries on 12/22/2019 at 3:30PM, [address] [facility] [place] [address], Ext: [phone]. All questions and concerns addressed. Patient verbalized understanding. IV removed with catheter intact, pressure dressing applied. Telemetry unit #[id number] returned to ICU.
--- NOTE | 2019-11-23 16:20 | NUR ---
TELE MONITOR TELE BOX #82 SENT BACK TO ICU. HAND SLITTER SOILA IS AWARE. Addendum: 11/23/19 at 1621 by Abbie Junior RN WRONG PATIENT
--- NOTE | 2019-11-23 16:31 | NUR ---
TELE MONITOR TELE BOX #77 SENT BACK TO ICU. PASTE MIXING SUPERVISOR CHAS IS AWARE.
--- NOTE | 2019-11-23 16:31 | NUR ---
MRSA MRSA SWAB COLLECTED AND SENT TO LAB.
--- NOTE | 2019-11-23 17:14 | NUR ---
Patient taken to vehicle via wheelchair with all personal belongings, accompanied by staff and family member. No distress noted at time of departure.
== END 2019-11-23 17:16 | disposition home health service (06) | DRG 853 ==
LOC: EDUNIT# 15:31 → EDBD 15:31 → ER 15:31 → TELE 15:32 → TELE-EAST 22:16 → ICU CENTRL 11-10 08:00 → DOU IN ICU 11-10 08:01 → ICU WEST 11-10 19:51 → DOU IN ICU 11-14 18:00 → TELE-WESTW 11-17 00:32
PROVIDERS: ADMIT Nurse Practitioner Acute Care; ATTEND Internal Medicine Nephrology
PROC: 5A1945Z Respiratory Ventilation, 24-96 Consecutive Hours (ICD-10-PCS; 2019-11-09)
PROC: 0BH17EZ Insertion of Endotracheal Airway into Trachea, Via Natural or Artificial Opening (ICD-10-PCS; 2019-11-09)
PROC: 02HV33Z Insertion of Infusion Device into Superior Vena Cava, Percutaneous Approach (ICD-10-PCS; 2019-11-10)
PROC: 5A1935Z Respiratory Ventilation, Less than 24 Consecutive Hours (ICD-10-PCS; 2019-11-13)
PROC: 4A023N7 Measurement of Cardiac Sampling and Pressure, Left Heart, Percutaneous Approach (ICD-10-PCS; principal; 2019-11-15)
PROC: 027035Z Dilation of Coronary Artery, One Artery with Two Drug-eluting Intraluminal Devices, Percutaneous Approach (ICD-10-PCS; 2019-11-15)
PROC: B2111ZZ Fluoroscopy of Multiple Coronary Arteries using Low Osmolar Contrast (ICD-10-PCS; 2019-11-15)
PROC: B2151ZZ Fluoroscopy of Left Heart using Low Osmolar Contrast (ICD-10-PCS; 2019-11-15)
DX: A41.9 Sepsis, unspecified organism (principal); J15.6 Pneumonia due to other Gram-negative bacteria; J96.01 Acute respiratory failure with hypoxia; J96.02 Acute respiratory failure with hypercapnia; R65.21 Severe sepsis with septic shock; N17.0 Acute kidney failure with tubular necrosis; I50.43 Acute on chronic combined systolic (congestive) and diastolic (congestive) heart failure; E44.0 Moderate protein-calorie malnutrition; I13.0 Hypertensive heart and chronic kidney disease with heart failure and stage 1 through stage 4 chronic kidney disease, or unspecified chronic kidney disease; Z99.11 Dependence on respirator [ventilator] status; E66.9 Obesity, unspecified; E11.65 Type 2 diabetes mellitus with hyperglycemia; N18.3 Chronic kidney disease, stage 3 (moderate); D63.8 Anemia in other chronic diseases classified elsewhere; E11.22 Type 2 diabetes mellitus with diabetic chronic kidney disease; E78.5 Hyperlipidemia, unspecified; E87.6 Hypokalemia; I25.10 Atherosclerotic heart disease of native coronary artery without angina pectoris; I45.9 Conduction disorder, unspecified; E86.1 Hypovolemia; E78.00 Pure hypercholesterolemia, unspecified; T50.8X5A Adverse effect of diagnostic agents, initial encounter; Z86.73 Personal history of transient ischemic attack (TIA), and cerebral infarction without residual deficits; Z90.49 Acquired absence of other specified parts of digestive tract; Z79.899 Other long term (current) drug therapy; Z83.511 Family history of glaucoma; Z03.818 Encounter for observation for suspected exposure to other biological agents ruled out; Z68.35 Body mass index [BMI] 35.0-35.9, adult
CPT/HCPCS: 36415; 36569; 36600; 70450; 71045; 74176; 76775; 78582; 80048; 80053; 80061; 80307; 81001; 82570; 82728; 82805; 82962; 83036; 83605; 83615; 83735; 83880; 84100; 84156; 84300; 84439; 84443; 84484; 84550; 85007; 85025; 85027; 85379; 85610; 85730; 86141; 86850; 86900; 86901; 87040; 87070; 87081; 87086; 87205; 87804; 87880; 92610; 93005; 93970; 93971; 94002; 94003; 94640; 96365; 96368; 96372; 96375; 97110; 97163; 97530; 99152; 99153; 99291; C1874; C1887; C9113; G0378; J0330; J0696; J1815; J2185; J2250; J3480; J3490; Q9967

== ENCOUNTER → 2019-12-22 | Outpatient (CLI) | payer MEDICARE, MEDICAID ==
[~2019-12-22] MED LIST changes: +ALL300T PO; +AMOX500T92 PO; +APIX5TAB PO; +ASPI81CH43 PO; +CLOP75TA28 PO; +DOX100T PO; +DOXY-286 PO; -HYDR12.56 PO; +PANT40TA2 PO; -PYRI100T51 PO; -RANI150C11 PO
[2019-12-22 09:05] LABS: Albumin 2.7 g/dL (3.4-5.0); Calcium 8.4 mg/dL (8.5-10.1); Potassium 4.3 mmol/L (3.5-5.1)
[2019-12-22 09:08] LABS: BUN/Creatinine Ratio 14.6; Bilirubin, Total 0.4 mg/dL (0.2-1.0); Phosphorus 4.5 mg/dL (2.5-4.90); Total Protein 7.4 g/dL (6.4-8.2)
[2019-12-22 09:34] LABS: % Iron Saturation 15.3 % (20-55)
[2019-12-22 16:07] LABS: Urine Bacteria NONE SEEN /hpf (None Seen); Urine Blood Negative /uL (Negative); Urine Budding Yeast FEW /hpf (None Seen); Urine Specific Gravity 1.014 (1.001-1.035); Urine WBC 1 /hpf (0 - 3)
[2019-12-25 19:12] LABS: Protein, Urine 31.3 mg/dL (0.0-11.9)
== END | disposition home or self-care (01) ==
LOC: LAB 08:16
PROVIDERS: ATTEND Internal Medicine Nephrology
DX: I12.9 Hypertensive chronic kidney disease with stage 1 through stage 4 chronic kidney disease, or unspecified chronic kidney disease (principal); I10 Essential (primary) hypertension; D64.9 Anemia, unspecified
CPT/HCPCS: 36415; 80053; 81001; 82570; 83540; 83550; 83735; 83970; 84100; 84156

== ENCOUNTER 2020-01-08 05:10 | Emergency (ER) | payer MEDICARE, MEDICAID ==
[~2020-01-08] VITALS: Ht 172.7 cm; Wt 99.8 kg
[~2020-01-08 05:10] MED LIST changes: -ALL300T PO; -DOXY-286 PO
[2020-01-08 08:03] LABS: Basophils # (auto) 0.1 10 ^3/uL (0-0.2); Basophils % (auto) 0.7 % (0.0-2.0); Eosinophils # (auto) 0.4 10 ^3/uL (0-0.8); Eosinophils % (auto) 5.3 % (0.0-7.0); Hematocrit 31.1 % (41.0-53.0); Hemoglobin 9.9 g/dL (13.5-17.5); Lymphocytes # (auto) 1.5 10 ^3/uL (0.4-5.4); Lymphocytes % (auto) 17.9 % (10.0-50.0); Mean Corpuscular Hemoglobin 28.8 pg (28.0-32.0); Monocytes # (auto) 0.7 10 ^3/uL (0-1.3); Monocytes % (auto) 8.6 % (0.0-12.0); Neutrophils # (auto) 5.6 10 ^3/uL (1.6-8.6); Neutrophils % (auto) 67.5 % (37.0-80.0); Platelet Count (auto) 225 10^3/uL (140-450); Red Blood Cells 3.46 10^6/uL (4.5-5.90); Red Cell Distribution Width 15.3 % (11.8-14.3); White Blood Cell 8.3 10^3/uL (4.4-10.8)
[2020-01-08 08:25] LABS: Alanine Aminotransferase 16 U/L (16-61); Albumin 2.7 g/dL (3.4-5.0); Anion Gap 3 (5-15); Aspartate Aminotransferase 25 U/L (15-37); BUN/Creatinine Ratio 14.5; Blood Urea Nitrogen 18 mg/dL (7-18); Calcium 8.6 mg/dL (8.5-10.1); Carbon Dioxide 35 mmol/L (21-32); Chloride 100 mmol/L (98-107); GFR African American 72 mL/min; GFR Non-African American 60 mL/min; Glucose 143 mg/dL (74-106); Magnesium 1.9 mg/dL (1.6-2.6); Potassium 3.5 mmol/L (3.5-5.1); Sodium 138 mmol/L (136-145)
[2020-01-08 08:30] LABS: Alkaline Phosphatase 105 U/L (45-117); Bilirubin, Total 0.5 mg/dL (0.2-1.0)
[2020-01-08 10:30] LABS: Urine Bacteria NONE SEEN /hpf (None Seen); Urine Blood Negative /uL (Negative); Urine Specific Gravity 1.013 (1.001-1.035); Urine WBC <1 /hpf (0 - 3)
[2020-01-08 11:05] VITALS: BP 150/69
== END 2020-01-08 12:06 | disposition home or self-care (01) ==
LOC: ER 05:10 → EDBD 05:10 → ER 12:06
DX: E11.649 Type 2 diabetes mellitus with hypoglycemia without coma (principal); E44.0 Moderate protein-calorie malnutrition; D64.9 Anemia, unspecified; E66.9 Obesity, unspecified; Z68.35 Body mass index [BMI] 35.0-35.9, adult; I11.0 Hypertensive heart disease with heart failure; I50.9 Heart failure, unspecified; E78.5 Hyperlipidemia, unspecified
CPT/HCPCS: 36415; 80053; 81001; 82962; 83735; 83880; 84484; 85025

== ENCOUNTER → 2020-01-26 | Outpatient (CLI) | payer MEDICARE, MEDICAID | END | disposition home or self-care (01) | LOC: XY 10:02 | PROVIDERS: ATTEND Internal Medicine | DX: I25.10 Atherosclerotic heart disease of native coronary artery without angina pectoris (principal); I10 Essential (primary) hypertension; E11.9 Type 2 diabetes mellitus without complications | CPT/HCPCS: 93886 ==

== ENCOUNTER 2020-03-02 10:11 | Inpatient (IN) | payer MEDICARE, MEDICAID ==
[~2020-03-02] VITALS: Ht 180.3 cm; Wt 98.0 kg
[2020-03-02 10:54] LABS: Basophils # (auto) 0 10 ^3/uL (0-0.2); Basophils % (auto) 0.8 % (0.0-2.0); Eosinophils # (auto) 0 10 ^3/uL (0-0.8); Eosinophils % (auto) 1.1 % (0.0-7.0); Hematocrit 32.1 % (41.0-53.0); Hemoglobin 10.5 g/dL (13.5-17.5); Lymphocytes # (auto) 0.8 10 ^3/uL (0.4-5.4); Lymphocytes % (auto) 31.4 % (10.0-50.0); Mean Corpuscular Hemoglobin 28.8 pg (28.0-32.0); Mean Corpuscular Hgb Conc. 32.6 g/dL (32.0-36.0); Mean Corpuscular Volume 88.2 fL (80.0-100.0); Monocytes # (auto) 0.4 10 ^3/uL (0-1.3); Monocytes % (auto) 16.4 % (0.0-12.0); Neutrophils # (auto) 1.3 10 ^3/uL (1.6-8.6); Neutrophils % (auto) 50.3 % (37.0-80.0); Platelet Count (auto) 100 10^3/uL (140-450); Red Blood Cells 3.63 10^6/uL (4.5-5.90); Red Cell Distribution Width 15.7 % (11.8-14.3); White Blood Cell 2.7 10^3/uL (4.4-10.8)
[2020-03-02 11:11] LABS: Albumin 3.3 g/dL (3.4-5.0); Calcium 8.9 mg/dL (8.5-10.1); Potassium 4.6 mmol/L (3.5-5.1)
[2020-03-02 11:13] LABS: INR 0.98 (0.9-1.15); Partial Thromboplastin Time 32.2 sec (23.0-31.2)
[2020-03-02 11:16] LABS: BUN/Creatinine Ratio 20.6; Bilirubin, Total 0.3 mg/dL (0.2-1.0); Total Protein 7.7 g/dL (6.4-8.2)
[2020-03-02 13:49] LABS: Urine Bacteria NONE SEEN /hpf (None Seen); Urine Blood Negative /uL (Negative); Urine Specific Gravity 1.011 (1.001-1.035); Urine WBC <1 /hpf (0 - 3)
[2020-03-02] MEDS ORDERED: SODIUM CHLORIDE 0.9% 1,000 ML IV SCH (15:25)
[2020-03-02] MEDS ORDERED: ACETAMINOPHEN 500 MG TAB PO PRN (15:30)
[2020-03-02] MEDS ORDERED: MORPHINE SULF INJ 2 MG/ML SYRINGE 1ML IV PRN ×2 (15:30→15:45)
[2020-03-02] MEDS ORDERED: NITROGLYCERIN 0.4 MG SL TAB SL PRN (15:30)
[2020-03-02] MEDS ORDERED: DEXTROSE (50%) 50ML SYRG IV PRN (15:45)
[2020-03-02] MEDS ORDERED: hydrALAZINE HCL 20 MG/ML VL IV PRN (15:45)
[2020-03-02] MEDS: InsuLIN REG 1unit/0.01ml Soln (100units/ml) SC SCH ×3 (16:00→23:50)
[2020-03-02] MEDS: ACCU-CHEK COMFORT CURVE STRIP VI SCH ×2 (16:30→21:40)
[2020-03-02] MEDS ORDERED: ONDANSETRON HCL 4 MG/2 ML VIAL ONE (16:45)
[2020-03-02] MEDS ORDERED: ONDANSETRON HCL 4 MG/2 ML VIAL IV ONE (17:00)
[2020-03-02] MEDS: TAMSULOSIN HYDROCHLORIDE 0.4 MG CAP PO SCH (18:00)
[2020-03-02] MEDS ORDERED: PROMETHAZINE HCL 25 MG/ML 1ML ONE (18:20)
[2020-03-02] MEDS: PIPERACILLIN-TAZOB 2.25GM 50 ML IV SCH (18:33)
[2020-03-02] MEDS: PROMETHAZINE HCL 25 MG/ML 1ML IV PRN (18:34)
[2020-03-02 19:29] LABS: CRP High Sensitivity 0.09 mg/dL (< 0.3); Magnesium 2.1 mg/dL (1.6-2.6)
--- NOTE | 2020-03-02 20:15 | NUR ---
Telemetry admit from ER TATYANA AUGUSTINE admitted to Telemetry unit after SBAR received. Patient is alert and oriented to self but is able to follow commands. Patient has been oriented to Kal Tran, primary RN, unit, room, bed, and unit policies regarding patient care and visiting hours. Patient now on continuous telemetry monitoring, tele box #2 and telemetry reading on arrival to unit is AFIB 73. Patient placed on 2 L oxygenand is currently at 92% oxygen saturation. Patient has been weighed by bedscale. Sitter is present at bedside.
[2020-03-02 21:00] VITALS: BP 130/71
[2020-03-02] MEDS: ALBUTEROL SULF HFA 90MCG INH 200DOSE IN SCH (21:15)
[2020-03-02 22:00] VITALS: BP 130/71
[2020-03-02] MEDS: PRAVASTATIN SODIUM 20 MG TAB PO SCH (22:00)
[2020-03-02] MEDS: CARVEDILOL 12.5 MG TAB PO SCH (22:00)
[2020-03-02] MEDS: APIXABAN 2.5 MG TAB PO SCH (22:00)
--- NOTE | 2020-03-02 23:55 | NUR ---
PATIENT HAD ANOTHER EPISODE OF VOMITING. WILL TREAT WITH PRN ANTINAUSEA/VOMITING MEDICATION.
[2020-03-03] MEDS: PROMETHAZINE HCL 25 MG/ML 1ML IV PRN
[2020-03-03] MEDS: ACCU-CHEK COMFORT CURVE STRIP VI SCH ×5 (04:00→22:31)
[2020-03-03] MEDS: InsuLIN REG 1unit/0.01ml Soln (100units/ml) SC SCH ×4 (04:00→22:31)
[2020-03-03 05:00] VITALS: BP 109/69
[2020-03-03] MEDS: PIPERACILLIN-TAZOB 2.25GM 50 ML IV SCH ×4 (05:54→17:39)
[2020-03-03 05:58] LABS: Basophils # (auto) 0 10 ^3/uL (0-0.2); Eosinophils # (auto) 0 10 ^3/uL (0-0.8); Eosinophils % (auto) 0.1 % (0.0-7.0); Hemoglobin 10.3 g/dL (13.5-17.5); Lymphocytes # (auto) 0.8 10 ^3/uL (0.4-5.4); Lymphocytes % (auto) 21.7 % (10.0-50.0); Mean Corpuscular Hemoglobin 28.7 pg (28.0-32.0); Mean Corpuscular Hgb Conc. 32.3 g/dL (32.0-36.0); Mean Corpuscular Volume 88.9 fL (80.0-100.0); Monocytes # (auto) 0.5 10 ^3/uL (0-1.3); Monocytes % (auto) 12.4 % (0.0-12.0); Neutrophils # (auto) 2.4 10 ^3/uL (1.6-8.6); Neutrophils % (auto) 64.8 % (37.0-80.0); Platelet Count (auto) 87 10^3/uL (140-450); Red Cell Distribution Width 15.7 % (11.8-14.3); White Blood Cell 3.7 10^3/uL (4.4-10.8)
[2020-03-03] MEDS: ALBUTEROL SULF HFA 90MCG INH 200DOSE IN SCH ×3 (06:00→21:48)
[2020-03-03 06:23] LABS: Potassium 5.3 mmol/L (3.5-5.1)
[2020-03-03 06:35] LABS: Albumin 3.1 g/dL (3.4-5.0); Bilirubin, Total 0.4 mg/dL (0.2-1.0); Calcium 8.7 mg/dL (8.5-10.1); Magnesium 2.2 mg/dL (1.6-2.6); Total Protein 7.6 g/dL (6.4-8.2)
--- NOTE | 2020-03-03 07:18 | NUR ---
0600 MDI NON ADMINISTERED. PT PENDING COVID 19 TEST. PT I SON 3LNC, SPO2 96%, HR 80, RR 16. PT IS SLEEPING, NO RESPIRATORY DISTRESS NOTED. LUNGS ARE CLEAR/ DIMINISHED T/O. WILL CONTINUE TO MONITOR.
[2020-03-03 09:00] VITALS: BP 104/50
[2020-03-03 09:53] VITALS: BP 104/50
[2020-03-03] MEDS ORDERED: levoFLOXacin 250MG 50 ML IV SCH (10:00)
[2020-03-03] MEDS ORDERED: ENOXAPARIN SOD 40 MG/0.4 ML SYRINGE SC SCH ×2 (10:00)
[2020-03-03] MEDS: CARVEDILOL 12.5 MG TAB PO SCH ×2 (10:00→22:35)
[2020-03-03] MEDS: ZINC SULFATE 220mg CAP or TAB PO SCH (10:19)
[2020-03-03] MEDS: PANTOPRAZOLE 40 MG/10 ML VIAL INJ IV SCH (10:19)
[2020-03-03] MEDS: APIXABAN 2.5 MG TAB PO SCH ×2 (10:19→22:34)
[2020-03-03] MEDS: ASPirin 81 mg TAB PO SCH (10:19)
[2020-03-03] MEDS: ASCORBIC ACID 1,000 MG TAB PO SCH (10:20)
[2020-03-03] MEDS: CLOPIDOGREL BISULFATE 75 MG TAB PO SCH (10:20)
[2020-03-03] MEDS: CHOLECALCIFEROL (VITD3) 2,000 UNIT CAP PO SCH (10:20)
[2020-03-03 12:50] VITALS: BP 118/52
[2020-03-03] MEDS ORDERED: DEXTROSE (50%) 50ML SYRG IV PRN (14:15)
--- NOTE | 2020-03-03 14:53 | NUR ---
1400 SCHEDULED MDI NOT ADMINISTERED. PT PENDING COVID 19 TEST RESULTS. PT IS ON 3LNC, SPO2 94%, HR 60, RR 20. NO S/S OF RESPIRATORY DISTRESS. LUNGS ARE DIMINISHED. WILL CONTINUE TO MONITOR.
[2020-03-03 17:00] VITALS: BP 105/48
[2020-03-03] MEDS: TAMSULOSIN HYDROCHLORIDE 0.4 MG CAP PO SCH (17:39)
--- NOTE | 2020-03-03 21:47 | NUR ---
2200 MDI TX HELD AT THIS TIME. PT IN NO RESPIRATORY DISTRESS, RESTING COMFORTABLY IN BED. HR 66, SPO2 98% ON 2L NC, RR 16. WILL CONTINUE TO MONITOR.
[2020-03-03] MEDS: PRAVASTATIN SODIUM 20 MG TAB PO SCH (22:31)
[2020-03-03 23:27] VITALS: BP 116/53
[2020-03-04] MEDS: PIPERACILLIN-TAZOB 2.25GM 50 ML IV SCH ×5 (00:19→23:31)
--- NOTE | 2020-03-04 01:00 | NUR ---
closing shift notes pt has no s/s of distress or pain at this time endorse care to coremaker floor RN
[2020-03-04 05:29] LABS: Basophils # (auto) 0 10 ^3/uL (0-0.2); Basophils % (auto) 0.8 % (0.0-2.0); Eosinophils # (auto) 0 10 ^3/uL (0-0.8); Eosinophils % (auto) 1.3 % (0.0-7.0); Hematocrit 30.6 % (41.0-53.0); Hemoglobin 10.3 g/dL (13.5-17.5); Mean Corpuscular Hemoglobin 29.5 pg (28.0-32.0); Mean Corpuscular Hgb Conc. 33.5 g/dL (32.0-36.0); Mean Corpuscular Volume 88.1 fL (80.0-100.0); Monocytes # (auto) 0.5 10 ^3/uL (0-1.3); Monocytes % (auto) 14.7 % (0.0-12.0); Neutrophils # (auto) 1.9 10 ^3/uL (1.6-8.6); Neutrophils % (auto) 55.2 % (37.0-80.0); Nucleated Red Blood Cells % 0.1 %; Platelet Count (auto) 100 10^3/uL (140-450); Red Blood Cells 3.48 10^6/uL (4.5-5.90); Red Cell Distribution Width 15.8 % (11.8-14.3); White Blood Cell 3.5 10^3/uL (4.4-10.8)
[2020-03-04 05:49] VITALS: BP 117/67
[2020-03-04 05:54] LABS: Albumin 2.9 g/dL (3.4-5.0); Calcium 8.2 mg/dL (8.5-10.1); Magnesium 2.3 mg/dL (1.6-2.6); Potassium 4.8 mmol/L (3.5-5.1)
[2020-03-04 05:59] LABS: BUN/Creatinine Ratio 21.4; Bilirubin, Total 0.3 mg/dL (0.2-1.0); Total Protein 7.1 g/dL (6.4-8.2)
[2020-03-04] MEDS: ACCU-CHEK COMFORT CURVE STRIP VI SCH ×4 (06:37→21:46)
[2020-03-04] MEDS: InsuLIN REG 1unit/0.01ml Soln (100units/ml) SC SCH ×4 (06:39→21:47)
[2020-03-04] MEDS: ALBUTEROL SULF HFA 90MCG INH 200DOSE IN SCH ×3 (07:04→14:30)
--- NOTE | 2020-03-04 07:05 | NUR ---
Respiratory note: NON ADMINISTRATION OF 0600 MDI PATIENT REMAINS A COVID R/O AND IS IN NO ACUTE RESPIRATORY DISTRESS.
[2020-03-04 09:00] VITALS: BP 134/53
[2020-03-04] MEDS: ASPirin 81 mg TAB PO SCH (10:10)
[2020-03-04] MEDS: PANTOPRAZOLE 40 MG/10 ML VIAL INJ IV SCH (10:10)
[2020-03-04] MEDS: CHOLECALCIFEROL (VITD3) 2,000 UNIT CAP PO SCH (10:11)
[2020-03-04] MEDS: ASCORBIC ACID 1,000 MG TAB PO SCH (10:11)
[2020-03-04] MEDS: CLOPIDOGREL BISULFATE 75 MG TAB PO SCH (10:11)
[2020-03-04] MEDS: ZINC SULFATE 220mg CAP or TAB PO SCH (10:11)
[2020-03-04] MEDS: CARVEDILOL 12.5 MG TAB PO SCH ×2 (10:11→21:45)
[2020-03-04] MEDS: APIXABAN 2.5 MG TAB PO SCH ×2 (10:11→21:44)
[2020-03-04 12:19] VITALS: BP 129/56
--- NOTE | 2020-03-04 13:24 | NUR ---
Nutrition Assessment Notes Please refer to link for full assessment notes. Est Energy needs: 4667-8831 kcals (17-20 kcal/kgBW) Est Protein needs: 86-117 gms/day (1.1-1.5 gm/kgIBW) d/t pt adiposity Will continue to monitor and reassess prn. Addendum: 03/04/20 at [address] Amended: Links added.
--- NOTE | 2020-03-04 14:30 | NUR ---
Respiratory note: NO ADMINISTRATION OF 1400 MDI/DPI PATIENT REMAINS A COVID R/O, AND IT IS NOT INDICATED. PATIENT IN NO ACUTE RESPIRATORY DISTRESS AT THIS TIME. SPO2 96% 2LPM N/C.
[2020-03-04 16:44] VITALS: BP 113/53
[2020-03-04 17:00] VITALS: BP 119/57
--- NOTE | 2020-03-04 17:09 | NUR ---
PT TRANSFERED FROM [facility] TO ROOM 220A BP 119/57 NO RESPIRATORY DISTRESS NOTED
[2020-03-04] MEDS: TAMSULOSIN HYDROCHLORIDE 0.4 MG CAP PO SCH (17:22)
--- NOTE | 2020-03-04 19:20 | NUR ---
OPENING SHIFT NOTE: Assumed care of patient. Patient awake, alert to self and situation only. No s/s of SOB or distress. Bed in lowest locked position with two side rails raised and call christian within reach and bed alarm activated for safety. Instructed on POC and encouraged to call for assistance. Will continue to monitor Q1 hr and PRN.
[2020-03-04] MEDS: PRAVASTATIN SODIUM 20 MG TAB PO SCH (21:44)
[2020-03-04 23:04] VITALS: BP 135/70
--- NOTE | 2020-03-05 03:01 | NUR ---
Spoke with Family Son Mitch called and provided password, updated on patient's status and condition. All questions and concerns addressed. Son verbalized understanding.
[2020-03-05] MEDS: PIPERACILLIN-TAZOB 2.25GM 50 ML IV SCH ×3 (05:23→17:14)
[2020-03-05 05:33] VITALS: BP 118/77
[2020-03-05] MEDS: ACCU-CHEK COMFORT CURVE STRIP VI SCH ×4 (06:13→22:05)
[2020-03-05] MEDS: InsuLIN REG 1unit/0.01ml Soln (100units/ml) SC SCH ×4 (06:14→21:56)
--- NOTE | 2020-03-05 07:35 | NUR ---
Opening Shift Note Assumed care of patient, awake and alert x2. No S/S of distress/SOB or pain. Instructed on POC and to call for assist PRN, will continue to monitor for changes Q1hr and PRN.
[2020-03-05 07:47] LABS: Basophils # (auto) 0 10 ^3/uL (0-0.2); Basophils % (auto) 0.4 % (0.0-2.0); Eosinophils # (auto) 0 10 ^3/uL (0-0.8); Eosinophils % (auto) 0.5 % (0.0-7.0); Hematocrit 32.9 % (41.0-53.0); Hemoglobin 10.7 g/dL (13.5-17.5); Lymphocytes # (auto) 0.8 10 ^3/uL (0.4-5.4); Lymphocytes % (auto) 21.3 % (10.0-50.0); Mean Corpuscular Hemoglobin 28.9 pg (28.0-32.0); Mean Corpuscular Hgb Conc. 32.6 g/dL (32.0-36.0); Mean Corpuscular Volume 88.6 fL (80.0-100.0); Monocytes # (auto) 0.5 10 ^3/uL (0-1.3); Monocytes % (auto) 11.8 % (0.0-12.0); Neutrophils # (auto) 2.6 10 ^3/uL (1.6-8.6); Nucleated Red Blood Cells % 0.1 %; Platelet Count (auto) 90 10^3/uL (140-450); Red Blood Cells 3.72 10^6/uL (4.5-5.90); Red Cell Distribution Width 16.2 % (11.8-14.3); White Blood Cell 3.9 10^3/uL (4.4-10.8)
[2020-03-05 07:55] LABS: Calcium 7.8 mg/dL (8.5-10.1); Potassium 4.5 mmol/L (3.5-5.1)
[2020-03-05 07:57] LABS: BUN/Creatinine Ratio 20.4
[2020-03-05 08:39] VITALS: BP 152/97
[2020-03-05] MEDS: PANTOPRAZOLE 40 MG/10 ML VIAL INJ IV SCH (09:33)
[2020-03-05] MEDS: ASPirin 81 mg TAB PO SCH (09:34)
[2020-03-05] MEDS: ZINC SULFATE 220mg CAP or TAB PO SCH (09:34)
[2020-03-05] MEDS: CARVEDILOL 12.5 MG TAB PO SCH ×2 (09:35→21:55)
[2020-03-05] MEDS: CLOPIDOGREL BISULFATE 75 MG TAB PO SCH (09:36)
[2020-03-05] MEDS: ASCORBIC ACID 1,000 MG TAB PO SCH (09:36)
[2020-03-05] MEDS: CHOLECALCIFEROL (VITD3) 2,000 UNIT CAP PO SCH (09:36)
[2020-03-05] MEDS: APIXABAN 2.5 MG TAB PO SCH ×2 (09:36→21:55)
[2020-03-05 12:42] VITALS: BP 136/64
[2020-03-05 17:00] VITALS: BP 116/70
[2020-03-05] MEDS: TAMSULOSIN HYDROCHLORIDE 0.4 MG CAP PO SCH (17:06)
--- NOTE | 2020-03-05 19:12 | NUR ---
OPENING SHIFT NOTE: Assumed care of patient. Patient awake, alert and oriented to self and situation only. NO s/s of SOB or distress. Bed in lowest locked position with two side rails raised, call christian within reach and bed alarm activated for safety. Instructed on POC and encouraged to call for assistance, all questions and concerns addressed, patient unable to verbalizes understanding. Will continue to monitor Q1 hr and PRN.
[2020-03-05] MEDS: PRAVASTATIN SODIUM 20 MG TAB PO SCH (21:55)
[2020-03-05 22:00] VITALS: BP 129/76
[2020-03-06 00:01] VITALS: BP 129/76
[2020-03-06] MEDS: PIPERACILLIN-TAZOB 2.25GM 50 ML IV SCH ×3 (00:24→11:42)
--- NOTE | 2020-03-06 03:35 | NUR ---
Spoke with Family Son Mitch called and provided password, updated on patient's status and condition. All questions and concerns addressed. Son verbalized understanding.
[2020-03-06 05:00] VITALS: BP 137/82
[2020-03-06 06:15] LABS: Basophils # (auto) 0 10 ^3/uL (0-0.2); Basophils % (auto) 0.4 % (0.0-2.0); Eosinophils # (auto) 0.1 10 ^3/uL (0-0.8); Eosinophils % (auto) 1.9 % (0.0-7.0); Hematocrit 31.8 % (41.0-53.0); Hemoglobin 10.3 g/dL (13.5-17.5); Lymphocytes # (auto) 1.1 10 ^3/uL (0.4-5.4); Lymphocytes % (auto) 26.5 % (10.0-50.0); Mean Corpuscular Hemoglobin 28.6 pg (28.0-32.0); Mean Corpuscular Hgb Conc. 32.3 g/dL (32.0-36.0); Mean Corpuscular Volume 88.7 fL (80.0-100.0); Monocytes # (auto) 0.5 10 ^3/uL (0-1.3); Monocytes % (auto) 13.3 % (0.0-12.0); Neutrophils # (auto) 2.4 10 ^3/uL (1.6-8.6); Neutrophils % (auto) 57.9 % (37.0-80.0); Platelet Count (auto) 90 10^3/uL (140-450); Red Blood Cells 3.59 10^6/uL (4.5-5.90); Red Cell Distribution Width 16.1 % (11.8-14.3); White Blood Cell 4.1 10^3/uL (4.4-10.8)
[2020-03-06 06:36] LABS: Albumin 2.8 g/dL (3.4-5.0); Calcium 8.5 mg/dL (8.5-10.1); Potassium 4.4 mmol/L (3.5-5.1)
[2020-03-06 06:40] LABS: BUN/Creatinine Ratio 22.1; Bilirubin, Total 0.4 mg/dL (0.2-1.0); Total Protein 7.2 g/dL (6.4-8.2)
[2020-03-06] MEDS: ACCU-CHEK COMFORT CURVE STRIP VI SCH ×2 (06:42→11:30)
[2020-03-06] MEDS: InsuLIN REG 1unit/0.01ml Soln (100units/ml) SC SCH ×2 (06:43→12:19)
--- NOTE | 2020-03-06 07:30 | NUR ---
Opening Shift Note Assumed care of patient, awake and alert. No S/S of distress/SOB or pain. Instructed on POC and to call for assist PRN, will continue to monitor for changes Q1hr and PRN. Fall precautions in place per safety protocol.
[2020-03-06 09:00] VITALS: BP 137/63
[2020-03-06] MEDS: ASCORBIC ACID 1,000 MG TAB PO SCH (10:00)
[2020-03-06] MEDS: CHOLECALCIFEROL (VITD3) 2,000 UNIT CAP PO SCH (10:00)
[2020-03-06] MEDS: ZINC SULFATE 220mg CAP or TAB PO SCH (10:00)
[2020-03-06] MEDS: PANTOPRAZOLE 40 MG/10 ML VIAL INJ IV SCH (10:10)
[2020-03-06] MEDS: APIXABAN 2.5 MG TAB PO SCH (10:10)
[2020-03-06] MEDS: ASPirin 81 mg TAB PO SCH (10:12)
[2020-03-06] MEDS: CLOPIDOGREL BISULFATE 75 MG TAB PO SCH (10:12)
[2020-03-06] MEDS: CARVEDILOL 12.5 MG TAB PO SCH (10:12)
[2020-03-06] MEDS ORDERED: DOXY-286 PO (11:58)
[2020-03-06 12:43] VITALS: BP 117/67
[2020-03-06 15:52] VITALS: BP 132/61
[2020-03-06 16:41] VITALS: BP 132/61
--- NOTE | 2020-03-06 17:23 | NUR ---
ASSESSMENT Per ss consult [facility] for safety, PT, medication management, vitals. Per Chiara MORENO patients deepak Gibson has been given a choice of providers. Per Arthur he has no preference on who provides service. MD order has been sent to [facility]. Per Zina service will start within 24 to 48 hours. Arthur has been notified. Choice letter has been placed in patients chart. Addendum: 03/06/20 at 1727 by Catrina Mckoy Amended: Links added.
--- NOTE | 2020-03-06 17:30 | NUR ---
Discharge instructions given as ordered. Encourage to follow up with PMD as instructed. All questions and concerns addressed. Patient verbalized understanding. Medication reconciliation form completed and copy given to patient. Home medications held in Pharmacy returned to patient. IV removed with catheter intact, pressure dressing applied. Telemetry unit returned to ICU. Patient taken to vehicle via wheelchair with all personal belongings, accompanied by staff and family member. No distress noted at time of departure. Family instructed on DC instructions.
== END 2020-03-06 17:27 | disposition home health service (06) | DRG 871 ==
LOC: ER 10:11 → EDBD 10:11 → TELE 10:12 → TELE-CENTR 20:15 → TELE-EAST 20:17 → TELE-CENTR 03-04 17:01
PROVIDERS: ATTEND Internal Medicine
DX: A41.9 Sepsis, unspecified organism (principal); G93.41 Metabolic encephalopathy; N17.0 Acute kidney failure with tubular necrosis; J69.0 Pneumonitis due to inhalation of food and vomit; E46 Unspecified protein-calorie malnutrition; N39.0 Urinary tract infection, site not specified; I13.0 Hypertensive heart and chronic kidney disease with heart failure and stage 1 through stage 4 chronic kidney disease, or unspecified chronic kidney disease; I50.42 Chronic combined systolic (congestive) and diastolic (congestive) heart failure; J44.0 Chronic obstructive pulmonary disease with (acute) lower respiratory infection; J96.10 Chronic respiratory failure, unspecified whether with hypoxia or hypercapnia; F03.90 Unspecified dementia, unspecified severity, without behavioral disturbance, psychotic disturbance, mood disturbance, and anxiety; E86.0 Dehydration; I48.91 Unspecified atrial fibrillation; K21.9 Gastro-esophageal reflux disease without esophagitis; N40.0 Benign prostatic hyperplasia without lower urinary tract symptoms; E11.22 Type 2 diabetes mellitus with diabetic chronic kidney disease; D63.8 Anemia in other chronic diseases classified elsewhere; E78.5 Hyperlipidemia, unspecified; Z20.828 Contact with and (suspected) exposure to other viral communicable diseases; D69.6 Thrombocytopenia, unspecified; E66.9 Obesity, unspecified; R26.9 Unspecified abnormalities of gait and mobility; I25.10 Atherosclerotic heart disease of native coronary artery without angina pectoris; N18.3 Chronic kidney disease, stage 3 (moderate); Z79.01 Long term (current) use of anticoagulants; Z79.02 Long term (current) use of antithrombotics/antiplatelets; Z79.82 Long term (current) use of aspirin; Z79.899 Other long term (current) drug therapy; Z86.73 Personal history of transient ischemic attack (TIA), and cerebral infarction without residual deficits; Z95.1 Presence of aortocoronary bypass graft; Z95.5 Presence of coronary angioplasty implant and graft; Z68.30 Body mass index [BMI] 30.0-30.9, adult
CPT/HCPCS: 36415; 70450; 71045; 71250; 80048; 80053; 81001; 82728; 82962; 83036; 83605; 83615; 83735; 83880; 84443; 84484; 85025; 85379; 85610; 85730; 86141; 87040; 87426; 94762; 96361; 96374; 97110; 97163; 97530; 99291; C9113; G0378; J1815; J2405; J2543

== ENCOUNTER 2020-03-11 11:55 | Inpatient (IN) | payer MEDICARE, MEDICAID ==
[~2020-03-11] VITALS: Ht 172.7 cm; Wt 95.6 kg
[~2020-03-11 11:55] MED LIST changes: +DOXY-286 PO
[2020-03-11] MEDS ORDERED: SODIUM CHLORIDE 0.9% 500 ML IVB ONE (13:00)
[2020-03-11 16:02] LABS: Albumin 2.7 g/dL (3.4-5.0); Anion Gap 6 (5-15); Blood Urea Nitrogen 31 mg/dL (7-18); Calcium 9.1 mg/dL (8.5-10.1); Carbon Dioxide 24 mmol/L (21-32); Chloride 107 mmol/L (98-107); Glucose 193 mg/dL (74-106); Hemoglobin 10.5 g/dL (13.5-17.5); Mean Corpuscular Hemoglobin 28.7 pg (28.0-32.0); Mean Corpuscular Hgb Conc. 31.7 g/dL (32.0-36.0); Mean Corpuscular Volume 90.5 fL (80.0-100.0); Platelet Count (auto) 196 10^3/uL (140-450); Potassium 4.9 mmol/L (3.5-5.1); Red Blood Cells 3.65 10^6/uL (4.5-5.90); Red Cell Distribution Width 15.4 % (11.8-14.3); Sodium 137 mmol/L (136-145); White Blood Cell 6.5 10^3/uL (4.4-10.8)
[2020-03-11 16:07] LABS: Alanine Aminotransferase 29 U/L (16-61); Alkaline Phosphatase 90 U/L (45-117); Aspartate Aminotransferase 37 U/L (15-37); BUN/Creatinine Ratio 21.7; Bilirubin, Total 0.4 mg/dL (0.2-1.0); GFR African American 61 mL/min; GFR Non-African American 51 mL/min; Total Protein 7.6 g/dL (6.4-8.2)
[2020-03-11 16:14] LABS: Band Neutrophils % (manual) 0; Basophils % (manual) 0 (0.0-2.0); Blast Cells 0; Metamyelocytes % 0; Myelocytes % 0; Promyelocytes % 0; Reactive Lymphocytes 0
[2020-03-11 16:29] LABS: INR 1.03 (0.9-1.15); Partial Thromboplastin Time 27.6 sec (23.0-31.2)
[2020-03-11] MEDS ORDERED: ONDANSETRON HCL 4 MG/2 ML VIAL ONE (17:10)
[2020-03-11 17:12] LABS: Eosinophils % (manual) 1 (0-7); Lymphocytes % (manual) 35 (10.0-50.0); Monocytes % (manual) 14 (0-12)
[2020-03-11 18:27] LABS: Urine Bacteria FEW /hpf (None Seen); Urine Blood Negative /uL (Negative); Urine Specific Gravity 1.014 (1.001-1.035); Urine WBC <1 /hpf (0 - 3)
[2020-03-11] MEDS ORDERED: MORPHINE SULF INJ 2 MG/ML SYRINGE 1ML IV PRN (19:00)
[2020-03-11] MEDS ORDERED: NITROGLYCERIN 0.4 MG SL TAB SL PRN (19:00)
[2020-03-11] MEDS ORDERED: FAMOTIDINE (10MG/ML) 2ML VL IV SCH (19:15)
[2020-03-11] MEDS ORDERED: traMADol HCL 50 MG TAB PO PRN (19:15)
[2020-03-11] MEDS ORDERED: ACETAMINOPHEN 500 MG TAB PO PRN (19:15)
[2020-03-11] MEDS ORDERED: LACTULOSE 20Gm/30ML SOLN PO PRN (19:15)
[2020-03-11] MEDS ORDERED: cefTRIAXone 1GM/50ML D5W 50 ML IV ONE (19:15)
[2020-03-11] MEDS ORDERED: ALBUTEROL SULF 2.5 MG/0.5ML(0.5%) NEB SOLN NEB PRN (19:15)
[2020-03-11] MEDS ORDERED: DEXTROSE (50%) 50ML SYRG IV PRN (19:15)
[2020-03-11 19:58] LABS: Amylase 53 U/L (25-115); Lipase 221 U/L (73-393)
[2020-03-11 22:00] VITALS: BP 149/91
[2020-03-11] MEDS: GABAPENTIN 300 MG CAP PO SCH (22:00)
[2020-03-11] MEDS: PRAVASTATIN SODIUM 20 MG TAB PO SCH (22:00)
[2020-03-11] MEDS: APIXABAN 5 MG TAB PO SCH (22:00)
[2020-03-11] MEDS: CARVEDILOL 12.5 MG TAB PO SCH (22:00)
[2020-03-11] MEDS: ACCU-CHEK COMFORT CURVE STRIP VI SCH (22:26)
[2020-03-11] MEDS: SODIUM CHLORIDE 0.9% 1,000 ML IV SCH (22:28)
[2020-03-11] MEDS: InsuLIN REG 1unit/0.01ml Soln (100units/ml) SC SCH (22:34)
[2020-03-11] MEDS: AZITHROMYCIN 500MG/ 250ML 250 ML IV SCH (22:36)
[2020-03-11 23:42] VITALS: BP 149/91
[2020-03-12] VITALS (7 sets, daily range): BP systolic 125–173; BP diastolic 71–102
[2020-03-12 05:28] LABS: Hematocrit 34.4 % (41.0-53.0); Hemoglobin 11.1 g/dL (13.5-17.5); Mean Corpuscular Hemoglobin 28.7 pg (28.0-32.0); Mean Corpuscular Hgb Conc. 32.2 g/dL (32.0-36.0); Platelet Count (auto) 197 10^3/uL (140-450); Red Blood Cells 3.86 10^6/uL (4.5-5.90); Red Cell Distribution Width 15.4 % (11.8-14.3); White Blood Cell 6.7 10^3/uL (4.4-10.8)
[2020-03-12 05:35] LABS: Band Neutrophils % (manual) 0; Basophils % (manual) 0 (0.0-2.0); Blast Cells 0; Metamyelocytes % 0; Myelocytes % 0; Promyelocytes % 0; Reactive Lymphocytes 0
[2020-03-12 05:48] LABS: Albumin 2.7 g/dL (3.4-5.0); Calcium 8.7 mg/dL (8.5-10.1); Potassium 4.6 mmol/L (3.5-5.1)
[2020-03-12 05:51] LABS: BUN/Creatinine Ratio 20.9; Bilirubin, Total 0.4 mg/dL (0.2-1.0); Total Protein 7.7 g/dL (6.4-8.2)
[2020-03-12] MEDS: GABAPENTIN 300 MG CAP PO SCH ×3 (06:00→22:00)
[2020-03-12] MEDS: SODIUM CHLORIDE 0.9% 1,000 ML IV SCH ×2 (06:04→15:08)
[2020-03-12 06:06] LABS: Eosinophils % (manual) 3 (0-7); Lymphocytes % (manual) 33 (10.0-50.0); Monocytes % (manual) 12 (0-12)
[2020-03-12] MEDS: ACCU-CHEK COMFORT CURVE STRIP VI SCH ×4 (06:37→22:36)
[2020-03-12] MEDS: InsuLIN REG 1unit/0.01ml Soln (100units/ml) SC SCH ×4 (06:41→22:42)
[2020-03-12] MEDS ORDERED: cefTRIAXone 1GM/50ML D5W 50 ML IV SCH (09:00)
[2020-03-12] MEDS ORDERED: ENOXAPARIN SOD 40 MG/0.4 ML SYRINGE SC SCH (10:00)
[2020-03-12] MEDS: PANTOPRAZOLE 40 MG TAB PO SCH (10:00)
[2020-03-12] MEDS: CLOPIDOGREL BISULFATE 75 MG TAB PO SCH (10:00)
[2020-03-12] MEDS: amLODIPine BESYLATE 5 MG TAB PO SCH (10:00)
[2020-03-12] MEDS: APIXABAN 5 MG TAB PO SCH (10:00)
[2020-03-12] MEDS: CARVEDILOL 12.5 MG TAB PO SCH ×2 (10:00→22:00)
[2020-03-12] MEDS: AZITHROMYCIN 500MG/ 250ML 250 ML IV SCH (11:39)
[2020-03-12] MEDS ORDERED: LABETALOL HCL 5 MG/ML 4ML SYRINGE IV ONE (12:45)
[2020-03-12] MEDS ORDERED: NITROGLYCERIN 0.2MG/HR TOPICAL PATCH TD ONE (12:45)
[2020-03-12] MEDS: LINEZOLID 600MG/300ML 300 ML IV SCH ×2 (13:28→22:35)
[2020-03-12] MEDS: MEROPENEM 1GM IVPB 100 ML IV SCH ×2 (15:39→23:23)
[2020-03-12] MEDS ORDERED: ENALAPRILAT 1.25 MG/ML-1ML VIAL IV PRN (16:45)
[2020-03-12] MEDS: TAMSULOSIN HYDROCHLORIDE 0.4 MG CAP PO SCH (17:49)
[2020-03-12] MEDS ORDERED: LORazepam 2MG/ML-1ML VIAL IV PRN (20:15)
[2020-03-12] MEDS: PRAVASTATIN SODIUM 20 MG TAB PO SCH (22:00)
[2020-03-12] MEDS: ENOXAPARIN SOD 100 MG/1 ML SYRINGE SC SCH (22:36)
[2020-03-13 05:00] VITALS: BP 129/88
[2020-03-13 05:29] LABS: Hematocrit 31.1 % (41.0-53.0); Mean Corpuscular Hemoglobin 28.5 pg (28.0-32.0); Mean Corpuscular Hgb Conc. 32.3 g/dL (32.0-36.0); Mean Corpuscular Volume 88.2 fL (80.0-100.0); Platelet Count (auto) 203 10^3/uL (140-450); Red Blood Cells 3.52 10^6/uL (4.5-5.90); Red Cell Distribution Width 15.7 % (11.8-14.3); White Blood Cell 7.8 10^3/uL (4.4-10.8)
[2020-03-13 05:53] LABS: Basophils % (manual) 0 (0.0-2.0); Blast Cells 0; Promyelocytes % 0; Reactive Lymphocytes 0
[2020-03-13 05:55] LABS: Albumin 2.4 g/dL (3.4-5.0); BUN/Creatinine Ratio 17.8; Potassium 4.5 mmol/L (3.5-5.1)
[2020-03-13 05:55] LABS: Alcohol, Urine < 3.0 mg/dL (0-10); Amphetamine Screen, Urine NEGATIVE (NEGATIVE); Barbiturate Scree,Urine NEGATIVE (NEGATIVE); Benzodiazephine Screen, Urine NEGATIVE (NEGATIVE); Cannabinoid Screen, Urine NEGATIVE (NEGATIVE); Cocaine Screen, Urine NEGATIVE (NEGATIVE); Opiate Scree,Urine NEGATIVE (NEGATIVE); Phencyclidine Screen, Urine NEGATIVE (NEGATIVE)
[2020-03-13] MEDS: MEROPENEM 1GM IVPB 100 ML IV SCH ×2 (05:57→17:29)
[2020-03-13] MEDS: GABAPENTIN 300 MG CAP PO SCH ×3 (06:00→22:00)
[2020-03-13 06:04] LABS: Bilirubin, Total 0.3 mg/dL (0.2-1.0); Total Protein 7.3 g/dL (6.4-8.2)
[2020-03-13] MEDS: ACCU-CHEK COMFORT CURVE STRIP VI SCH ×3 (06:18→17:30)
[2020-03-13] MEDS: InsuLIN REG 1unit/0.01ml Soln (100units/ml) SC SCH ×3 (06:20→17:30)
[2020-03-13 08:00] VITALS: BP 144/94
[2020-03-13 09:04] LABS: Band Neutrophils % (manual) 5; Eosinophils % (manual) 1 (0-7); Lymphocytes % (manual) 31 (10.0-50.0); Metamyelocytes % 2; Monocytes % (manual) 15 (0-12); Myelocytes % 1
[2020-03-13] MEDS: LINEZOLID 600MG/300ML 300 ML IV SCH ×2 (09:50→22:36)
[2020-03-13] MEDS: PANTOPRAZOLE 40 MG TAB PO SCH (09:51)
[2020-03-13] MEDS: NITROGLYCERIN 0.2MG/HR TOPICAL PATCH TD SCH (09:51)
[2020-03-13] MEDS: CLOPIDOGREL BISULFATE 75 MG TAB PO SCH (09:51)
[2020-03-13] MEDS: amLODIPine BESYLATE 5 MG TAB PO SCH (09:51)
[2020-03-13] MEDS: CARVEDILOL 12.5 MG TAB PO SCH ×2 (09:51→22:00)
[2020-03-13] MEDS: ENOXAPARIN SOD 100 MG/1 ML SYRINGE SC SCH ×2 (09:52→23:02)
[2020-03-13 12:00] VITALS: BP 140/64
[2020-03-13] MEDS ORDERED: IPRATROPIUM BROM 0.5 MG/2.5ML INH SOL NEB PRN (12:15)
[2020-03-13] MEDS ORDERED: ALBUTEROL SULF 2.5 MG/0.5ML(0.5%) NEB SOLN NEB PRN (12:15)
[2020-03-13] MEDS ORDERED: PPN PER PHARMACY 0 ML IV SCH (12:15)
[2020-03-13 12:24] LABS: Magnesium 2.2 mg/dL (1.6-2.6); Phosphorus 3.6 mg/dL (2.5-4.90)
[2020-03-13 12:28] LABS: Pre Albumin 16.2 mg/dL (20.0-40.0)
[2020-03-13 16:54] VITALS: BP 138/90
[2020-03-13] MEDS: TAMSULOSIN HYDROCHLORIDE 0.4 MG CAP PO SCH (17:30)
[2020-03-13] MEDS ORDERED: DEXTROSE (50%) 50ML SYRG IV SCH (18:00)
[2020-03-13] MEDS ORDERED: PPN PER PHARMACY IV NR ×10 (20:00)
[2020-03-13 21:00] VITALS: BP 152/78
[2020-03-13] MEDS: ATORVASTATIN 20 MG TAB PO SCH (22:00)
[2020-03-14 05:00] VITALS: BP 159/84
[2020-03-14] MEDS: GABAPENTIN 300 MG CAP PO SCH ×3 (06:00→22:00)
[2020-03-14] MEDS: InsuLIN REG 1unit/0.01ml Soln (100units/ml) SC SCH ×4 (06:00→17:15)
[2020-03-14 06:08] LABS: Albumin 2.6 g/dL (3.4-5.0); Calcium 8.6 mg/dL (8.5-10.1); Magnesium 2.4 mg/dL (1.6-2.6); Potassium 4.2 mmol/L (3.5-5.1)
[2020-03-14] MEDS: ACCU-CHEK COMFORT CURVE STRIP VI SCH ×4 (06:11→17:08)
[2020-03-14 06:14] LABS: BUN/Creatinine Ratio 22.3; Bilirubin, Total 0.4 mg/dL (0.2-1.0); Phosphorus 2.7 mg/dL (2.5-4.90); Total Protein 7.6 g/dL (6.4-8.2)
[2020-03-14] MEDS: MEROPENEM 1GM IVPB 100 ML IV SCH ×2 (06:43→17:14)
[2020-03-14 09:00] VITALS: BP 161/95
[2020-03-14] MEDS: LINEZOLID 600MG/300ML 300 ML IV SCH ×2 (09:06→23:05)
[2020-03-14] MEDS: ENOXAPARIN SOD 100 MG/1 ML SYRINGE SC SCH ×2 (09:09→23:06)
[2020-03-14] MEDS: LABETALOL HCL 5 MG/ML 4ML SYRINGE IV PRN ×2 (09:10→13:19)
[2020-03-14] MEDS: NITROGLYCERIN 0.2MG/HR TOPICAL PATCH TD SCH (09:11)
[2020-03-14] MEDS: CLOPIDOGREL BISULFATE 75 MG TAB PO SCH (09:11)
[2020-03-14] MEDS: PANTOPRAZOLE 40 MG TAB PO SCH (09:11)
[2020-03-14] MEDS: amLODIPine BESYLATE 5 MG TAB PO SCH (09:11)
[2020-03-14] MEDS: CARVEDILOL 12.5 MG TAB PO SCH ×2 (09:11→22:00)
[2020-03-14 10:21] LABS: Folate (Folic Acid) 19.71 ng/mL (5.38-24)
[2020-03-14] MEDS: MORPHINE SULF INJ 2 MG/ML SYRINGE 1ML IV PRN ×2 (11:53→21:11)
[2020-03-14 13:00] VITALS: BP 164/84
[2020-03-14 16:29] VITALS: BP 148/69
[2020-03-14] MEDS: TAMSULOSIN HYDROCHLORIDE 0.4 MG CAP PO SCH (17:08)
[2020-03-14] MEDS ORDERED: PPN PER PHARMACY IV NR ×10 (20:00)
[2020-03-14 21:00] VITALS: BP 142/73
[2020-03-14] MEDS: ATORVASTATIN 20 MG TAB PO SCH (22:00)
[2020-03-15 03:54] VITALS: BP 142/73
[2020-03-15 05:00] VITALS: BP 141/72
[2020-03-15] MEDS: GABAPENTIN 300 MG CAP PO SCH ×3 (06:00→22:00)
[2020-03-15] MEDS: ACCU-CHEK COMFORT CURVE STRIP VI SCH ×4 (06:00→17:24)
[2020-03-15] MEDS: InsuLIN REG 1unit/0.01ml Soln (100units/ml) SC SCH ×4 (06:00→17:30)
[2020-03-15 06:06] LABS: Potassium 4.1 mmol/L (3.5-5.1)
[2020-03-15] MEDS: MEROPENEM 1GM IVPB 100 ML IV SCH (06:07)
[2020-03-15 06:13] LABS: Albumin 2.3 g/dL (3.4-5.0); BUN/Creatinine Ratio 25.3; Bilirubin, Total 0.4 mg/dL (0.2-1.0); Calcium 8.3 mg/dL (8.5-10.1); Magnesium 2.5 mg/dL (1.6-2.6); Phosphorus 2.4 mg/dL (2.5-4.90); Total Protein 7.4 g/dL (6.4-8.2)
[2020-03-15] MEDS: MORPHINE SULF INJ 2 MG/ML SYRINGE 1ML IV PRN ×3 (08:31→20:55)
[2020-03-15 08:39] VITALS: BP 140/83
[2020-03-15] MEDS: PANTOPRAZOLE 40 MG TAB PO SCH (10:00)
[2020-03-15] MEDS: CLOPIDOGREL BISULFATE 75 MG TAB PO SCH (10:00)
[2020-03-15] MEDS: amLODIPine BESYLATE 5 MG TAB PO SCH (10:00)
[2020-03-15] MEDS: CARVEDILOL 12.5 MG TAB PO SCH ×2 (10:00→22:00)
[2020-03-15] MEDS: LINEZOLID 600MG/300ML 300 ML IV SCH (10:09)
[2020-03-15] MEDS: NITROGLYCERIN 0.2MG/HR TOPICAL PATCH TD SCH (10:10)
[2020-03-15] MEDS: ENOXAPARIN SOD 100 MG/1 ML SYRINGE SC SCH ×2 (10:11→22:00)
[2020-03-15 12:07] VITALS: BP 102/87
[2020-03-15] MEDS ORDERED: CEFTRIAXONE SODIUM 2 GM in D5W 5% 50 ML IV ONE (12:15)
[2020-03-15] MEDS ORDERED: FLUCONAZOLE 200MG/100ML 100 ML IV ONE (14:00)
[2020-03-15] MEDS ORDERED: ACETAMINOPHEN 650 MG RECT SUPP PR PRN (14:00)
[2020-03-15 16:33] VITALS: BP 133/53
[2020-03-15] MEDS: TAMSULOSIN HYDROCHLORIDE 0.4 MG CAP PO SCH (17:24)
[2020-03-15] MEDS ORDERED: PPN PER PHARMACY IV NR ×11 (20:00)
[2020-03-15] MEDS: ONDANSETRON HCL 4 MG/2 ML VIAL IV PRN (20:55)
[2020-03-15] MEDS: ATORVASTATIN 20 MG TAB PO SCH (22:00)
[2020-03-15 22:34] VITALS: BP 151/69
[2020-03-16] VITALS (7 sets, daily range): BP systolic 111–157; BP diastolic 62–98
[2020-03-16] MEDS: MORPHINE SULF INJ 2 MG/ML SYRINGE 1ML IV PRN ×3 (04:24→17:38)
[2020-03-16] MEDS: ONDANSETRON HCL 4 MG/2 ML VIAL IV PRN (04:25)
[2020-03-16 05:18] LABS: Basophils # (auto) 0 10 ^3/uL (0-0.2); Basophils % (auto) 0.3 % (0.0-2.0); Eosinophils # (auto) 0.1 10 ^3/uL (0-0.8); Eosinophils % (auto) 0.6 % (0.0-7.0); Hemoglobin 8.7 g/dL (13.5-17.5); Lymphocytes # (auto) 1.5 10 ^3/uL (0.4-5.4); Lymphocytes % (auto) 10.6 % (10.0-50.0); Mean Corpuscular Hemoglobin 28.5 pg (28.0-32.0); Mean Corpuscular Hgb Conc. 31.2 g/dL (32.0-36.0); Mean Corpuscular Volume 91.5 fL (80.0-100.0); Monocytes # (auto) 1.1 10 ^3/uL (0-1.3); Monocytes % (auto) 7.6 % (0.0-12.0); Neutrophils # (auto) 11.7 10 ^3/uL (1.6-8.6); Neutrophils % (auto) 80.9 % (37.0-80.0); Nucleated Red Blood Cells % 0.1 %; Platelet Count (auto) 195 10^3/uL (140-450); Red Blood Cells 3.06 10^6/uL (4.5-5.90); Red Cell Distribution Width 15.8 % (11.8-14.3); White Blood Cell 14.5 10^3/uL (4.4-10.8)
[2020-03-16 05:41] LABS: Calcium 8.6 mg/dL (8.5-10.1); Magnesium 2.5 mg/dL (1.6-2.6)
[2020-03-16 05:46] LABS: BUN/Creatinine Ratio 28.1; Bilirubin, Total 0.2 mg/dL (0.2-1.0); Phosphorus 3.6 mg/dL (2.5-4.90); Total Protein 7.5 g/dL (6.4-8.2)
[2020-03-16] MEDS: ACCU-CHEK COMFORT CURVE STRIP VI SCH ×5 (06:00→23:57)
[2020-03-16] MEDS: InsuLIN REG 1unit/0.01ml Soln (100units/ml) SC SCH ×5 (06:00→23:56)
[2020-03-16] MEDS: GABAPENTIN 300 MG CAP PO SCH (06:00)
[2020-03-16] MEDS ORDERED: MORPHINE SULF INJ 2 MG/ML SYRINGE 1ML IV PRN (09:00)
[2020-03-16] MEDS: CEFTRIAXONE SODIUM 2 GM in D5W 5% 50 ML IV SCH (10:00)
[2020-03-16] MEDS: FLUCONAZOLE 200MG/100ML 100 ML IV SCH (10:12)
[2020-03-16] MEDS: CARVEDILOL 12.5 MG TAB PO SCH ×2 (10:13→22:00)
[2020-03-16] MEDS: PANTOPRAZOLE 40 MG TAB PO SCH (10:14)
[2020-03-16] MEDS: ENOXAPARIN SOD 100 MG/1 ML SYRINGE SC SCH (10:14)
[2020-03-16] MEDS: CLOPIDOGREL BISULFATE 75 MG TAB PO SCH (10:14)
[2020-03-16] MEDS: amLODIPine BESYLATE 5 MG TAB PO SCH (10:14)
[2020-03-16] MEDS: NITROGLYCERIN 0.2MG/HR TOPICAL PATCH TD SCH (10:15)
[2020-03-16] MEDS ORDERED: methylPREDNISolone SOD SUCC 40 MG/ML VL IV ONE (12:00)
[2020-03-16] MEDS: LABETALOL HCL 5 MG/ML 4ML SYRINGE IV PRN (12:00)
[2020-03-16 13:38] LABS: INR 1.08 (0.9-1.15)
[2020-03-16] MEDS: TAMSULOSIN HYDROCHLORIDE 0.4 MG CAP PO SCH (17:37)
[2020-03-16] MEDS ORDERED: TPN PER PHARMACY IV NR ×11 (20:00)
[2020-03-16] MEDS: ATORVASTATIN 20 MG TAB PO SCH (22:00)
[2020-03-16] MEDS: methylPREDNISolone SOD SUCC 40 MG/ML VL IV SCH (23:29)
[2020-03-16] MEDS: LINEZOLID 600MG/300ML 300 ML IV SCH (23:29)
[2020-03-17] VITALS (7 sets, daily range): BP systolic 138–166; BP diastolic 69–93
[2020-03-17] MEDS: LABETALOL HCL 5 MG/ML 4ML SYRINGE IV PRN ×2 (00:03→13:41)
[2020-03-17] MEDS: ACCU-CHEK COMFORT CURVE STRIP VI SCH ×3 (05:59→18:03)
[2020-03-17] MEDS: InsuLIN REG 1unit/0.01ml Soln (100units/ml) SC SCH ×3 (06:02→18:05)
[2020-03-17 06:14] LABS: BUN/Creatinine Ratio 32.1; Calcium 8.5 mg/dL (8.5-10.1); Potassium 4.6 mmol/L (3.5-5.1)
[2020-03-17] MEDS: NITROGLYCERIN 0.2MG/HR TOPICAL PATCH TD SCH (10:06)
[2020-03-17] MEDS: amLODIPine BESYLATE 5 MG TAB PO SCH (10:08)
[2020-03-17] MEDS: PANTOPRAZOLE 40 MG TAB PO SCH (10:08)
[2020-03-17] MEDS: CARVEDILOL 12.5 MG TAB PO SCH ×2 (10:09→22:03)
[2020-03-17] MEDS: CLOPIDOGREL BISULFATE 75 MG TAB PO SCH (10:09)
[2020-03-17] MEDS: LINEZOLID 600MG/300ML 300 ML IV SCH ×2 (10:10→22:03)
[2020-03-17] MEDS: methylPREDNISolone SOD SUCC 40 MG/ML VL IV SCH ×2 (10:11→22:01)
[2020-03-17] MEDS: FLUCONAZOLE 200MG/100ML 100 ML IV SCH (10:22)
[2020-03-17] MEDS ORDERED: DEXTROSE (50%) 50ML SYRG IV PRN (11:00)
[2020-03-17] MEDS: CEFTRIAXONE SODIUM 2 GM in D5W 5% 50 ML IV SCH (11:03)
[2020-03-17] MEDS: TAMSULOSIN HYDROCHLORIDE 0.4 MG CAP PO SCH (18:03)
[2020-03-17] MEDS: ATORVASTATIN 20 MG TAB PO SCH (22:03)
[2020-03-18] MEDS: InsuLIN REG 1unit/0.01ml Soln (100units/ml) SC SCH ×5 (00:29→23:44)
[2020-03-18 01:13] VITALS: BP 161/69
[2020-03-18 05:00] VITALS: BP 146/94
[2020-03-18 05:02] LABS: Basophils # (auto) 0 10 ^3/uL (0-0.2); Basophils % (auto) 0.2 % (0.0-2.0); Eosinophils # (auto) 0 10 ^3/uL (0-0.8); Hematocrit 26.8 % (41.0-53.0); Hemoglobin 8.7 g/dL (13.5-17.5); Lymphocytes # (auto) 0.7 10 ^3/uL (0.4-5.4); Lymphocytes % (auto) 7.3 % (10.0-50.0); Mean Corpuscular Hemoglobin 29.2 pg (28.0-32.0); Mean Corpuscular Hgb Conc. 32.6 g/dL (32.0-36.0); Mean Corpuscular Volume 89.6 fL (80.0-100.0); Monocytes # (auto) 0.6 10 ^3/uL (0-1.3); Monocytes % (auto) 6.2 % (0.0-12.0); Neutrophils # (auto) 7.8 10 ^3/uL (1.6-8.6); Neutrophils % (auto) 86.3 % (37.0-80.0); Platelet Count (auto) 194 10^3/uL (140-450); Red Cell Distribution Width 15.7 % (11.8-14.3)
[2020-03-18 05:19] LABS: BUN/Creatinine Ratio 41.1; Potassium 4.5 mmol/L (3.5-5.1)
[2020-03-18] MEDS: ACCU-CHEK COMFORT CURVE STRIP VI SCH ×6 (06:27→23:45)
[2020-03-18 09:00] VITALS: BP 157/92
[2020-03-18] MEDS: methylPREDNISolone SOD SUCC 40 MG/ML VL IV SCH (09:46)
[2020-03-18] MEDS: PANTOPRAZOLE 40 MG TAB PO SCH (09:47)
[2020-03-18] MEDS: LINEZOLID 600MG/300ML 300 ML IV SCH ×2 (09:47→22:02)
[2020-03-18] MEDS: CARVEDILOL 12.5 MG TAB PO SCH ×2 (09:48→22:03)
[2020-03-18] MEDS: amLODIPine BESYLATE 5 MG TAB PO SCH (09:48)
[2020-03-18] MEDS: CLOPIDOGREL BISULFATE 75 MG TAB PO SCH (09:49)
[2020-03-18] MEDS: FLUCONAZOLE 200MG/100ML 100 ML IV SCH (10:03)
[2020-03-18] MEDS ORDERED: DEXTROSE (50%) 50ML SYRG IV PRN (12:00)
[2020-03-18 13:00] VITALS: BP 140/103
[2020-03-18] MEDS: CEFTRIAXONE SODIUM 2 GM in D5W 5% 50 ML IV SCH (14:09)
[2020-03-18 17:00] VITALS: BP 149/86
[2020-03-18] MEDS ORDERED: INSULIN LANTUS (GLARGINE) 1 /0.01ml (100units/ml) SC ONE (17:45)
[2020-03-18] MEDS: TAMSULOSIN HYDROCHLORIDE 0.4 MG CAP PO SCH (17:53)
[2020-03-18 22:00] VITALS: BP 142/67
[2020-03-18] MEDS: APIXABAN 5 MG TAB PO SCH (22:03)
[2020-03-18] MEDS: ATORVASTATIN 20 MG TAB PO SCH (22:03)
[2020-03-19 05:00] VITALS: BP 157/81
[2020-03-19] MEDS: ACCU-CHEK COMFORT CURVE STRIP VI SCH ×4 (05:51→23:39)
[2020-03-19] MEDS: InsuLIN REG 1unit/0.01ml Soln (100units/ml) SC SCH ×4 (06:02→23:40)
[2020-03-19 08:59] VITALS: BP 154/78
[2020-03-19] MEDS: CEFTRIAXONE SODIUM 2 GM in D5W 5% 50 ML IV SCH (09:08)
[2020-03-19] MEDS ORDERED: predniSONE 20 MG TAB PO SCH (10:00)
[2020-03-19] MEDS: LINEZOLID 600MG/300ML 300 ML IV SCH (10:45)
[2020-03-19] MEDS: PANTOPRAZOLE 40 MG TAB PO SCH (10:46)
[2020-03-19] MEDS: amLODIPine BESYLATE 5 MG TAB PO SCH (10:48)
[2020-03-19] MEDS: CARVEDILOL 12.5 MG TAB PO SCH ×2 (10:48→23:37)
[2020-03-19] MEDS: APIXABAN 5 MG TAB PO SCH ×2 (10:49→23:37)
[2020-03-19] MEDS: FLUCONAZOLE 200MG/100ML 100 ML IV SCH (12:00)
[2020-03-19 13:00] VITALS: BP 154/90
[2020-03-19 13:30] VITALS: BP 146/74
[2020-03-19 16:59] VITALS: BP 137/76
[2020-03-19] MEDS: TAMSULOSIN HYDROCHLORIDE 0.4 MG CAP PO SCH (17:53)
[2020-03-19] MEDS ORDERED: INSULIN LANTUS (GLARGINE) 1 /0.01ml (100units/ml) SC ONE (18:15)
[2020-03-19 22:00] VITALS: BP 135/56
[2020-03-19] MEDS ORDERED: INSULIN LANTUS (GLARGINE) 1 /0.01ml (100units/ml) SC SCH ×2 (22:00)
[2020-03-19] MEDS: ATORVASTATIN 20 MG TAB PO SCH (23:36)
[2020-03-20] MEDS: LINEZOLID 600MG/300ML 300 ML IV SCH ×2 (00:02→09:38)
[2020-03-20 05:00] VITALS: BP 144/79
[2020-03-20] MEDS: ACCU-CHEK COMFORT CURVE STRIP VI SCH ×3 (06:05→17:51)
[2020-03-20] MEDS: InsuLIN REG 1unit/0.01ml Soln (100units/ml) SC SCH ×3 (06:07→17:52)
[2020-03-20 09:00] VITALS: BP 148/67
[2020-03-20] MEDS: FLUCONAZOLE 200MG/100ML 100 ML IV SCH (09:37)
[2020-03-20] MEDS: predniSONE 20 MG TAB PO SCH (09:38)
[2020-03-20] MEDS: PANTOPRAZOLE 40 MG TAB PO SCH (09:39)
[2020-03-20] MEDS: APIXABAN 5 MG TAB PO SCH ×2 (09:39→22:10)
[2020-03-20] MEDS: CARVEDILOL 12.5 MG TAB PO SCH ×2 (09:39→22:11)
[2020-03-20] MEDS: amLODIPine BESYLATE 5 MG TAB PO SCH (09:40)
[2020-03-20] MEDS ORDERED: ALL300T PO (11:12)
[2020-03-20 13:00] VITALS: BP 153/65
[2020-03-20 17:00] VITALS: BP 153/76
[2020-03-20] MEDS: TAMSULOSIN HYDROCHLORIDE 0.4 MG CAP PO SCH (17:51)
[2020-03-20] MEDS ORDERED: ALLOPURINOL 300 MG TAB PO ONE (18:00)
[2020-03-20] MEDS ORDERED: INSULIN LANTUS (GLARGINE) 1 /0.01ml (100units/ml) SC SCH (22:00)
[2020-03-20] MEDS: ATORVASTATIN 20 MG TAB PO SCH (22:10)
[2020-03-20 22:13] VITALS: BP 150/71
[2020-03-20] MEDS: INSULIN LANTUS (GLARGINE) 1 /0.01ml (100units/ml) SC SCH (22:15)
[2020-03-21] MEDS: ACCU-CHEK COMFORT CURVE STRIP VI SCH ×5 (00:26→23:39)
[2020-03-21] MEDS: InsuLIN REG 1unit/0.01ml Soln (100units/ml) SC SCH ×5 (00:27→23:40)
[2020-03-21 01:00] VITALS: BP 144/72
[2020-03-21 05:13] VITALS: BP 150/61
[2020-03-21 05:38] LABS: Hematocrit 31.5 % (41.0-53.0); Hemoglobin 10.4 g/dL (13.5-17.5); Mean Corpuscular Hemoglobin 28.5 pg (28.0-32.0); Mean Corpuscular Volume 86.5 fL (80.0-100.0); Platelet Count (auto) 226 10^3/uL (140-450); Red Blood Cells 3.64 10^6/uL (4.5-5.90); Red Cell Distribution Width 15.3 % (11.8-14.3); White Blood Cell 5.9 10^3/uL (4.4-10.8)
[2020-03-21 05:45] LABS: Basophils % (manual) 0 (0.0-2.0); Blast Cells 0; Eosinophils % (manual) 0 (0-7); Promyelocytes % 0; Reactive Lymphocytes 0
[2020-03-21 05:56] LABS: Albumin 2.1 g/dL (3.4-5.0); Calcium 9.1 mg/dL (8.5-10.1); Potassium 5.3 mmol/L (3.5-5.1)
[2020-03-21 05:59] LABS: BUN/Creatinine Ratio 40.3; Bilirubin, Total 0.6 mg/dL (0.2-1.0); Total Protein 7.8 g/dL (6.4-8.2)
[2020-03-21 06:46] LABS: Band Neutrophils % (manual) 4; Lymphocytes % (manual) 30 (10.0-50.0); Metamyelocytes % 1; Monocytes % (manual) 10 (0-12); Myelocytes % 1
[2020-03-21 09:00] VITALS: BP 142/63
[2020-03-21] MEDS ORDERED: cefTRIAXone 1GM/50ML D5W 50 ML IV SCH (09:00)
[2020-03-21] MEDS: amLODIPine BESYLATE 5 MG TAB PO SCH (09:54)
[2020-03-21] MEDS: predniSONE 20 MG TAB PO SCH (09:54)
[2020-03-21] MEDS: CARVEDILOL 12.5 MG TAB PO SCH ×2 (09:54→21:42)
[2020-03-21] MEDS: APIXABAN 5 MG TAB PO SCH ×2 (09:55→21:41)
[2020-03-21] MEDS: PANTOPRAZOLE 40 MG TAB PO SCH (09:55)
[2020-03-21] MEDS ORDERED: FLUCONAZOLE 100 MG TAB PO SCH (10:00)
[2020-03-21] MEDS ORDERED: ALLOPURINOL 300 MG TAB PO ONE (10:30)
[2020-03-21 13:00] VITALS: BP 139/57
[2020-03-21 16:50] VITALS: BP 128/68
[2020-03-21] MEDS: TAMSULOSIN HYDROCHLORIDE 0.4 MG CAP PO SCH (16:59)
[2020-03-21] MEDS: ATORVASTATIN 20 MG TAB PO SCH (21:41)
[2020-03-21 22:00] VITALS: BP 126/78
[2020-03-21] MEDS: INSULIN LANTUS (GLARGINE) 1 /0.01ml (100units/ml) SC SCH (22:21)
[2020-03-22 05:02] VITALS: BP 148/66
[2020-03-22] MEDS: ACCU-CHEK COMFORT CURVE STRIP VI SCH ×2 (05:40→12:26)
[2020-03-22] MEDS: InsuLIN REG 1unit/0.01ml Soln (100units/ml) SC SCH ×2 (05:40→12:27)
[2020-03-22 05:54] LABS: Albumin 2.2 g/dL (3.4-5.0); Calcium 9.2 mg/dL (8.5-10.1); Potassium 4.9 mmol/L (3.5-5.1)
[2020-03-22 05:57] LABS: BUN/Creatinine Ratio 34.8; Bilirubin, Total 0.7 mg/dL (0.2-1.0); Total Protein 7.9 g/dL (6.4-8.2)
[2020-03-22 09:28] VITALS: BP 128/92
[2020-03-22] MEDS: CARVEDILOL 12.5 MG TAB PO SCH (09:38)
[2020-03-22] MEDS: PANTOPRAZOLE 40 MG TAB PO SCH (09:38)
[2020-03-22] MEDS: amLODIPine BESYLATE 5 MG TAB PO SCH (09:44)
[2020-03-22] MEDS: APIXABAN 5 MG TAB PO SCH (09:45)
[2020-03-22] MEDS ORDERED: ALLOPURINOL 300 MG TAB PO SCH (10:00)
[2020-03-22] MEDS ORDERED: predniSONE 5 MG TAB PO SCH (10:00)
[2020-03-22] MEDS ORDERED: COLCHICINE 0.6 MG CAP PO SCH (10:00)
[2020-03-22 12:23] VITALS: BP 129/61
== END 2020-03-22 15:52 | disposition hospice, home (50) | DRG 91 ==
LOC: EDBD 11:55 → ER 11:55 → TELE 11:56 → TELE-EAST 23:24 → TELE-CENTR 03-12 19:14
PROVIDERS: ADMIT Internal Medicine; ATTEND Internal Medicine
DX: G92 Toxic encephalopathy (principal); N17.0 Acute kidney failure with tubular necrosis; J18.9 Pneumonia, unspecified organism; J96.21 Acute and chronic respiratory failure with hypoxia; G45.9 Transient cerebral ischemic attack, unspecified; I69.354 Hemiplegia and hemiparesis following cerebral infarction affecting left non-dominant side; I13.0 Hypertensive heart and chronic kidney disease with heart failure and stage 1 through stage 4 chronic kidney disease, or unspecified chronic kidney disease; I50.42 Chronic combined systolic (congestive) and diastolic (congestive) heart failure; R47.01 Aphasia; R65.10 Systemic inflammatory response syndrome (SIRS) of non-infectious origin without acute organ dysfunction; Z20.828 Contact with and (suspected) exposure to other viral communicable diseases; D63.8 Anemia in other chronic diseases classified elsewhere; I25.10 Atherosclerotic heart disease of native coronary artery without angina pectoris; E11.22 Type 2 diabetes mellitus with diabetic chronic kidney disease; N18.3 Chronic kidney disease, stage 3 (moderate); E66.9 Obesity, unspecified; E78.5 Hyperlipidemia, unspecified; F17.200 Nicotine dependence, unspecified, uncomplicated; F32.9 Major depressive disorder, single episode, unspecified; I48.91 Unspecified atrial fibrillation; I67.2 Cerebral atherosclerosis; J44.9 Chronic obstructive pulmonary disease, unspecified; M06.4 Inflammatory polyarthropathy; M18.9 Osteoarthritis of first carpometacarpal joint, unspecified; M19.019 Primary osteoarthritis, unspecified shoulder; N40.0 Benign prostatic hyperplasia without lower urinary tract symptoms; Z68.32 Body mass index [BMI] 32.0-32.9, adult; Z79.02 Long term (current) use of antithrombotics/antiplatelets; Z79.899 Other long term (current) drug therapy; Z82.49 Family history of ischemic heart disease and other diseases of the circulatory system; Z83.3 Family history of diabetes mellitus; Z86.711 Personal history of pulmonary embolism; Z95.1 Presence of aortocoronary bypass graft; Z95.5 Presence of coronary angioplasty implant and graft; Z99.81 Dependence on supplemental oxygen
CPT/HCPCS: 36415; 36600; 70450; 71045; 71250; 73200; 74176; 80048; 80053; 80307; 81001; 82040; 82150; 82550; 82607; 82746; 82805; 82962; 83036; 83605; 83690; 83735; 83880; 84100; 84154; 84443; 84478; 84484; 84550; 85007; 85025; 85027; 85610; 85652; 85730; 86141; 86200; 86225; 86235; 87040; 87081; 87086; 87426; 92507; 92610; 93005; 93886; 93970; 95819; 97110; 97116; 97163; 97530; G0378; J0696; J1450; J1815; J2185; J2405; J3490; J7060; J7131

== ENCOUNTER 2021-03-06 08:36 | Inpatient (IN) | payer MEDICARE, MEDICAID ==
[~2021-03-06] VITALS: Ht 175.3 cm; Wt 90.3 kg
[~2021-03-06 08:36] MED LIST changes: +ALL300T PO; +AMLO-489 PO; -AMLO5TAB15 PO
[2021-03-06] MEDS ORDERED: ETOMIDATE (2MG/ML) 20ML VIAL IV ONE ×2 (08:39→09:00)
[2021-03-06] MEDS ORDERED: SUCCINYLCHOLINE CHLORIDE 20 MG/ML 10ML VIAL IV ONE ×2 (08:40→09:00)
[2021-03-06] MEDS ORDERED: MIDAZOLAM DRIP 50 mg/50mL 50 ML IV ONE (08:53)
[2021-03-06] MEDS ORDERED: PROPOFOL 100 ML IV ONE (09:00)
[2021-03-06] MEDS: NOREPINEPHRINE 8 MG/250ML KIT 250 ML IV SCH (09:00)
[2021-03-06] MEDS: MIDAZOLAM DRIP 50 mg/50mL 50 ML IV SCH ×2 (09:05→18:36)
[2021-03-06 09:27] LABS: Basophils # (auto) 0.1 10 ^3/uL (0-0.2); Basophils % (auto) 0.6 % (0.0-2.0); Eosinophils # (auto) 0.2 10 ^3/uL (0-0.8); Eosinophils % (auto) 1.8 % (0.0-7.0); Hematocrit 33.4 % (41.0-53.0); Lymphocytes # (auto) 2.3 10 ^3/uL (0.4-5.4); Lymphocytes % (auto) 18.5 % (10.0-50.0); Mean Corpuscular Hemoglobin 28.8 pg (28.0-32.0); Mean Corpuscular Volume 87.3 fL (80.0-100.0); Monocytes # (auto) 0.7 10 ^3/uL (0-1.3); Monocytes % (auto) 5.8 % (0.0-12.0); Neutrophils # (auto) 9.3 10 ^3/uL (1.6-8.6); Neutrophils % (auto) 73.3 % (37.0-80.0); Red Blood Cells 3.83 10^6/uL (4.5-5.90); Red Cell Distribution Width 14.4 % (11.8-14.3); White Blood Cell 12.6 10^3/uL (4.4-10.8)
[2021-03-06 09:44] LABS: Albumin 2.6 g/dL (3.4-5.0); Anion Gap 10 (5-15); Blood Alcohol < 3.0 mg/dL (0-5); Blood Urea Nitrogen 18 mg/dL (7-18); Calcium 8.6 mg/dL (8.5-10.1); Carbon Dioxide 28 mmol/L (21-32); Chloride 101 mmol/L (98-107); Glucose 338 mg/dL (74-106); Potassium 3.2 mmol/L (3.5-5.1); Sodium 139 mmol/L (136-145)
[2021-03-06] MEDS ORDERED: cefTRIAXone 1GM/50ML D5W 50 ML IV ONE (09:45)
[2021-03-06 09:50] LABS: Alanine Aminotransferase 37 U/L (16-61); Alkaline Phosphatase 123 U/L (45-117); Aspartate Aminotransferase 33 U/L (15-37); BUN/Creatinine Ratio 13.7; Bilirubin, Total 0.5 mg/dL (0.2-1.0); GFR African American 68 mL/min; GFR Non-African American 56 mL/min; Total Protein 7.3 g/dL (6.4-8.2)
[2021-03-06 09:53] LABS: INR 1.04 (0.9-1.15); Partial Thromboplastin Time 22.2 sec (23.6-33.0)
[2021-03-06] MEDS ORDERED: LABETALOL HCL 5 MG/ML 4ML SYRINGE IV ONE (10:00)
[2021-03-06 10:19] LABS: Lactic Acid w/Reflex 4.8 mmol/L (0.4-2.0)
[2021-03-06] MEDS ORDERED: PROPOFOL 100 ML IV SCH (10:45)
[2021-03-06] MEDS ORDERED: NITROGLYCERIN 0.4 MG SL TAB SL PRN (11:30)
[2021-03-06] MEDS ORDERED: MORPHINE SULFATE INJECTION 2 MG/ML SYRG IV PRN (11:30)
[2021-03-06] MEDS ORDERED: PHENYLEPHRINE IV 250 ML IV SCH (11:30)
[2021-03-06] MEDS ORDERED: fentaNYL Drip 2500mCg/250mlNS 250 ML IV SCH (11:30)
[2021-03-06] MEDS ORDERED: DEXTROSE (50%) 50ML SYRG IV PRN (11:30)
[2021-03-06 11:57] VITALS: BP 72/41
[2021-03-06] MEDS: InsuLIN REG 1unit/0.01ml Soln (100units/ml) SC SCH ×3 (12:45→22:00)
[2021-03-06] MEDS: ACCU-CHEK COMFORT CURVE STRIP VI SCH ×3 (12:46→22:00)
[2021-03-06 13:02] VITALS: BP 133/88
[2021-03-06] MEDS: SOD CHL 0.45% WITH 20MEQ KCL 1,000 ML IV SCH (13:13)
[2021-03-06] MEDS: levoFLOXacin 500MG 100 ML IV SCH (13:43)
[2021-03-06 13:46] LABS: Urine Bacteria NONE SEEN /hpf (None Seen); Urine Blood Negative /uL (Negative); Urine Specific Gravity 1.009 (1.001-1.035); Urine WBC 1 /hpf (0 - 3)
[2021-03-06 14:59] VITALS: BP 94/47
[2021-03-06] MEDS ORDERED: DexAMETHasone SOD PHOS 10MG/1ML VIAL INJ IV ONE (16:30)
[2021-03-06 18:31] VITALS: BP 128/60
[2021-03-06 20:34] VITALS: BP 147/69
[2021-03-06 22:06] VITALS: BP 131/67
[2021-03-07] VITALS (19 sets, daily range): BP systolic 71–143; BP diastolic 47–68
[2021-03-07] MEDS: SOD CHL 0.45% WITH 20MEQ KCL 1,000 ML IV SCH (03:34)
[2021-03-07] MEDS ORDERED: SODIUM CHLORIDE 0.9% 500 ML IV ONE (04:15)
[2021-03-07] MEDS: MIDAZOLAM DRIP 50 mg/50mL 50 ML IV SCH ×3 (04:41→18:37)
[2021-03-07] MEDS: ACCU-CHEK COMFORT CURVE STRIP VI SCH (05:45)
[2021-03-07] MEDS: InsuLIN REG 1unit/0.01ml Soln (100units/ml) SC SCH (05:46)
[2021-03-07] MEDS: NOREPINEPHRINE 8 MG/250ML KIT 250 ML IV SCH ×3 (06:16→22:23)
[2021-03-07 09:16] LABS: Basophils # (auto) 0.1 10 ^3/uL (0-0.2); Basophils % (auto) 0.3 % (0.0-2.0); Eosinophils # (auto) 0 10 ^3/uL (0-0.8); Hematocrit 30.6 % (41.0-53.0); Hemoglobin 9.9 g/dL (13.5-17.5); Lymphocytes # (auto) 0.9 10 ^3/uL (0.4-5.4); Lymphocytes % (auto) 4.3 % (10.0-50.0); Mean Corpuscular Hemoglobin 28.8 pg (28.0-32.0); Mean Corpuscular Hgb Conc. 32.2 g/dL (32.0-36.0); Mean Corpuscular Volume 89.5 fL (80.0-100.0); Monocytes # (auto) 1.8 10 ^3/uL (0-1.3); Monocytes % (auto) 8.4 % (0.0-12.0); Neutrophils # (auto) 19.2 10 ^3/uL (1.6-8.6); Red Blood Cells 3.42 10^6/uL (4.5-5.90); Red Cell Distribution Width 14.7 % (11.8-14.3)
[2021-03-07 09:30] LABS: Calcium 7.7 mg/dL (8.5-10.1)
[2021-03-07 09:33] LABS: BUN/Creatinine Ratio 10.3; Bilirubin, Total 0.5 mg/dL (0.2-1.0); Total Protein 6.3 g/dL (6.4-8.2)
[2021-03-07 09:44] LABS: Potassium 5.6 mmol/L (3.5-5.1)
[2021-03-07] MEDS: levoFLOXacin 500MG 100 ML IV SCH (10:00)
[2021-03-07 10:48] LABS: Calcium 7.9 mg/dL (8.5-10.1)
[2021-03-07 10:51] LABS: BUN/Creatinine Ratio 10.5; Bilirubin, Total 0.5 mg/dL (0.2-1.0); Total Protein 6.3 g/dL (6.4-8.2)
[2021-03-07 10:59] LABS: Potassium 5.6 mmol/L (3.5-5.1)
[2021-03-07] MEDS ORDERED: FINA5TAB4 PO (11:15)
[2021-03-07] MEDS ORDERED: DOCU-94 PO (11:15)
[2021-03-07] MEDS ORDERED: LACT10SO70 PO (11:15)
[2021-03-07] MEDS ORDERED: TEMA15CA2 PO (11:15)
[2021-03-07] MEDS ORDERED: LINA145C PO (11:15)
[2021-03-07] MEDS ORDERED: FER325T PO (11:15)
[2021-03-07] MEDS ORDERED: FLUD0.1T2 PO (11:15)
[2021-03-07] MEDS ORDERED: ASPI81CH59 PO (11:15)
[2021-03-07] MEDS ORDERED: PARO-135 PO (11:15)
[2021-03-07] MEDS ORDERED: ONDA-155 PO (11:15)
[2021-03-07] MEDS ORDERED: HYDR-4902 PO (11:15)
[2021-03-07] MEDS ORDERED: POTA10TA51 PO (11:15)
[2021-03-07] MEDS ORDERED: MIDO5TAB2 PO (11:15)
[2021-03-07] MEDS ORDERED: PRAV20TA3 PO (11:15)
[2021-03-07] MEDS ORDERED: DONE5TAB11 PO (11:15)
[2021-03-07] MEDS ORDERED: MORPHINE SULFATE INJECTION 2 MG/ML SYRG IV PRN ×2 (11:30)
[2021-03-07] MEDS ORDERED: LORazepam 2MG/ML-1ML VIAL IV PRN (11:30)
[2021-03-07] MEDS ORDERED: BISA10SU45 RE (11:42)
[2021-03-07] MEDS ORDERED: COLC1TAB3 PO (11:42)
[2021-03-07] MEDS ORDERED: HALO2CON8 PO (11:42)
[2021-03-07] MEDS ORDERED: TAMS0.4C36 PO (11:42)
[2021-03-07] MEDS ORDERED: ACET650S12 RE (11:42)
[2021-03-07] MEDS ORDERED: LORA1TAB23 PO (11:42)
[2021-03-07] MEDS ORDERED: HYOS0.1250 PO (11:42)
[2021-03-07] MEDS ORDERED: PANT40TA2 PO (11:42)
[2021-03-07] MEDS ORDERED: MORP20SO SL (11:42)
[2021-03-07] MEDS ORDERED: APIX5TAB PO (11:42)
[2021-03-07] MEDS ORDERED: NUTR-463 PO (11:42)
[2021-03-07] MEDS ORDERED: ALL300T PO (11:42)
[2021-03-07] MEDS ORDERED: INSREG3 SC (11:42)
[2021-03-07] MEDS ORDERED: CLOP75TA28 PO (11:42)
[2021-03-07] MEDS ORDERED: INSLANTI SC (11:42)
[2021-03-07] MEDS ORDERED: GABA300C10 PO (11:42)
[2021-03-07] MEDS ORDERED: fentaNYL Drip 2500mCg/250mlNS 250 ML IV SCH (12:00)
[2021-03-07] MEDS ORDERED: CALCIUM GLUC 1,000mg/50ml-NS 50 ML IV ONE (14:30)
[2021-03-07] MEDS ORDERED: InsuLIN REG 1unit/0.01ml Soln (100units/ml) IV ONE (14:30)
[2021-03-08] VITALS (19 sets, daily range): BP systolic 103–115; BP diastolic 44–52
[2021-03-08] MEDS: NOREPINEPHRINE 8 MG/250ML KIT 250 ML IV SCH (06:00)
[2021-03-08] MEDS: MIDAZOLAM DRIP 50 mg/50mL 50 ML IV SCH (06:00)
[2021-03-08] MEDS ORDERED: LORazepam 2MG/ML-1ML VIAL IV PRN (11:00)
[2021-03-08] MEDS ORDERED: MORPHINE SULFATE INJECTION 2 MG/ML SYRG IV ONE (11:00)
== END 2021-03-08 13:20 | DRG 64 ==
LOC: ER 08:36 → EDUNIT# 08:36 → EDBD 08:36 → TELE 11:23 → ICU WEST 03-08 06:52
PROVIDERS: ADMIT Nurse Practitioner Acute Care; ATTEND Internal Medicine
PROC: 5A1945Z Respiratory Ventilation, 24-96 Consecutive Hours (ICD-10-PCS; principal; 2021-03-06)
PROC: 0BH17EZ Insertion of Endotracheal Airway into Trachea, Via Natural or Artificial Opening (ICD-10-PCS; 2021-03-06)
PROC: 05HM33Z Insertion of Infusion Device into Right Internal Jugular Vein, Percutaneous Approach (ICD-10-PCS; 2021-03-06)
DX: I62.00 Nontraumatic subdural hemorrhage, unspecified (principal); J96.01 Acute respiratory failure with hypoxia; J69.0 Pneumonitis due to inhalation of food and vomit; G93.41 Metabolic encephalopathy; N17.0 Acute kidney failure with tubular necrosis; G93.5 Compression of brain; F05 Delirium due to known physiological condition; J44.0 Chronic obstructive pulmonary disease with (acute) lower respiratory infection; E87.2 Acidosis; Z66 Do not resuscitate; I95.9 Hypotension, unspecified; E88.09 Other disorders of plasma-protein metabolism, not elsewhere classified; E11.65 Type 2 diabetes mellitus with hyperglycemia; I25.10 Atherosclerotic heart disease of native coronary artery without angina pectoris; D72.829 Elevated white blood cell count, unspecified; E87.6 Hypokalemia; E66.9 Obesity, unspecified; D64.9 Anemia, unspecified; G30.9 Alzheimer's disease, unspecified; F02.80 Dementia in other diseases classified elsewhere, unspecified severity, without behavioral disturbance, psychotic disturbance, mood disturbance, and anxiety; E78.5 Hyperlipidemia, unspecified; E87.5 Hyperkalemia; I11.0 Hypertensive heart disease with heart failure; I50.9 Heart failure, unspecified; Z20.822 Contact with and (suspected) exposure to COVID-19; N40.0 Benign prostatic hyperplasia without lower urinary tract symptoms; Z79.01 Long term (current) use of anticoagulants; Z79.02 Long term (current) use of antithrombotics/antiplatelets; Z79.4 Long term (current) use of insulin; Z79.82 Long term (current) use of aspirin; Z79.899 Other long term (current) drug therapy; Z82.49 Family history of ischemic heart disease and other diseases of the circulatory system; Z83.3 Family history of diabetes mellitus; Z95.1 Presence of aortocoronary bypass graft; Z99.81 Dependence on supplemental oxygen; Z86.73 Personal history of transient ischemic attack (TIA), and cerebral infarction without residual deficits; Z68.29 Body mass index [BMI] 29.0-29.9, adult; Z90.49 Acquired absence of other specified parts of digestive tract
CPT/HCPCS: 31500; 36415; 36556; 36600; 70450; 71045; 74176; 80053; 80320; 81001; 82805; 82962; 83605; 83880; 84484; 85025; 85379; 85610; 85730; 87040; 87070; 87077; 87081; 87186; 87205; 87426; 93005; 94002; 94003; 99291; G0378; J0330; J0696; J1100; J1815; J1956; J2250; J2704